=== PATIENT | male | born 1950 ===

== ENCOUNTER 2025-01-29 15:41 | Outpatient (AMB) | payer MEDICARE, OTHER, SELFPAY ==
--- NOTE | 2025-01-29 15:57 | MHC.OFFVIS ---
Intake Visit Reasons: 6 mnts f/u Allergies No Known Allergies Allergy (Verified 01/29/25 15:58) Medication List - Last Reconciled 01/29/25 by Stephanie Weiss CNP amlodipine 2.5 mg PO DAILY atorvastatin 80 mg PO DAILY finasteride 5 mg PO DAILY gabapentin 1,200 mg PO BID primidone 50 mg PO BID tamsulosin 0.4 mg PO BEDTIME HPI Comments Details: 74-year-old man with tremor. He was doing okay. He was taking primidone 50mg once a day and tremor was stable. No functional impairment. No trouble eating, drinking, or swallowing. Sleep was okay. [facility] Medical History (Updated 01/29/25 @ 15:59 by Stephanie Weiss CNP) Benign essential tremor Review of Systems Const Denies chills, Denies daytime sleepiness, Reports difficulty sleeping, Denies fatigue, Denies fever(s), Denies frequent falls, Denies headache(s), Denies increased appetite, Denies poor appetite, Denies snoring, Denies weakness, Denies weight gain and Denies weight loss Eyes Denies loss of vision ENT Denies vertigo, Denies dizziness and Denies headache(s) Card Denies chest pain at rest, Denies chest pain with activity, Denies syncope, Denies leg edema and Denies palpitations Resp Denies snoring GI Denies constipation, Denies heartburn, Denies diarrhea and Denies nausea Reports urinary frequency, Denies urinary incontinence and Denies urinary urgency Musc Denies abnormal gait, Denies numbness and Denies tingling Skin/Breast Denies dry skin and Denies rash Neuro Denies abnormal gait, Denies vertigo, Denies dizziness, Denies syncope, Denies frequent falls, Denies headache(s), Denies lack of coordination, Denies loss of vision, Denies memory loss, Denies numbness, Denies restless legs, Denies seizure-like activity, Denies tingling, Denies paresthesias, Reports tremor(s) and Denies weakness Psych Reports anxiety, Denies depression, Denies auditory hallucinations, Denies memory loss, Denies visual hallucinations and Denies suicidal ideation Endo Denies fatigue and Denies palpitations Physical Exam Const Other: General Appearance:? normal, in no acute distress. Skin:? no rashes, no significant birthmarks. Heart:? S1, S2 normal, no murmurs. Lungs:? clear anteriorly and posteriorly. Extremities:? no edema. Psych:? alert, oriented, cognitive function intact, cooperative with exam. Neuro Other: Mental Status:?Normal attention, orientation, memory and affect.? Cranial Nerves:?Pupils are equal, round and reactive to light. External occular muscles are intact. Visual degroot are full. Face is symmetrical. Facial sensations are normal. Tongue is midline. Palate elevates symmetrically. Shoulder shrugging is normal. Hearing to bedside conversation is normal. Sensory Exam:?....? Coordination:?No ataxia,?no titubation.? Gait Exam: Within normal limits. Cerebellar Signs:?[id number] and [id number] is normal.? Extrapyramidal System:?No tremor, rigidity with normal facial expressions.? Pronator Drift:?Not present.? Involuntary Movements:?No tremors noted on exam. Speech:?Normal.? Assessment & Plan Assessment & Plan (1) Benign essential tremor: Code(s): G25.0 - Essential tremor Category: Medical Plan: Decrease primidone 50mg 1 tablet daily. Medications: New primidone 50 mg PO BEDTIME 90 tabs 1RF 90 days Discontinued primidone Discontinued Reason: Order 50 mg PO BID Coding Level of Care Code Est Pt Level 3 (19777) Diagnoses Benign essential tremor G25.0
--- OUTSIDE RECORDS SUMMARY | 2025-01-29 15:58 | XMS_ITS ---
Author Name [facility] Organization Unknown Encounters Encounter Type Encounter Reason Primary Diagnosis Location Date Emergency Fall [facility] 09/08/2021 Care Team Organization Name Specialty Phone Email Start Date End Da te [facility] 05/12/2022 02/21/2024 [facility] 09/09/2021 02/21/2024 [facility] 09/08/2021 09/08/2021
--- OUTSIDE RECORDS SUMMARY | 2025-01-29 15:58 | XMS_ITS | Clinical Summary ---
Author Organization [place] [address] [address] [facility] Building Address [address] [place] [address] Phone Care Team Providers Care Supervisor Heat Treating Name Role Phone Birdie Dwyer MD Primary Care Provider [phone] Allergies No known active allergies Medications gabapentin (NEURONTIN) 600 mg tablet TAKE 2 TABLETS BY MOUTH TWICE DAILY 120 tablet 2 024 Active acetaminophen (TYLENOL) 500 mg capsule Take 500 mg by mouth. Active aspirin 81 mg EC tablet Take 81 mg by mouth daily. Active cetirizine (ZyrTEC) 10 mg tablet TK 1 T PO D 019 Active EPINEPHrine (EpiPen 2-Irineo) 0.3 mg/0.3 mL injection Inject 0.3 mg into the muscle as needed for Other (anaphylactic reaction). Fill with whichever brand is covered by insurance. 023 Active finasteride (PROSCAR) 5 mg tablet Take 1 tablet (5 mg total) by mouth 1 (one) time each day. 023 Active polyethylene glycol (GaviLyte-G) 236-22.74-6.74 -5.86 gram solution MIX AND DRINK 1 8 OZ GLASS OF PREP BY MOUTH STARTING AT 6 PM THE NIGHT BEFORE PROCEDURE AT OWN PACE UNTIL RECTALS RUN CLEAR 024 Active primidone (MYSOLINE) 50 mg tablet Take 1 tablet (50 mg total) by mouth 2 (two) times a day. 021 Active tadalafiL (CIALIS) 10 mg tablet Take 1 tab 30 minutes for sexual intercourse 023 Active tamsulosin (FLOMAX) 0.4 mg 24 hr capsule Take 1 capsule (0.4 mg total) by mouth 1 (one) time each day. 023 Active melatonin 10 mg tablet Take 1 Tablet by mouth at bedtime. 022 Active fexofenadine (MIKE) 180 mg tablet Take 1 tablet (180 mg total) by mouth 1 (one) time each day. 90 tablet 025 Active ascorbic acid (VITAMIN C) 250 mg tablet Take 1 tablet (250 mg total) by mouth 1 (one) time each day. 90 tablet 025 Active ferrous sulfate 325 mg (65 mg elemental iron) tablet Take 1 tablet (325 mg total) by mouth 1 (one) time each day. 90 tablet 025 Active oxyBUTYnin XL (DITROPAN-XL) 10 mg 24 hr tablet TAKE 1 TABLET BY MOUTH EVERY MORNING 90 tablet 025 Active hydrOXYzine HCL (ATARAX) 25 mg tablet Take by mouth. Activ e albuterol HFA (PROAIR HFA ; PROVENTIL HFA ; VENTOLIN HFA) 90 mcg/actuation inhalerIndication s:Obstructive sleep apnea Inhale 2 puffs by mouth every 4 (four) hours if needed for wheezing. 8.5 g 1 025 Active amLODIPine (NORVASC) 5 mg tabletIndications :Primary hypertension Take 1 tablet (5 mg total) by mouth 1 (one) time each day. 90 tablet 1 025 Active amLODIPine (NORVASC) 2.5 mg tabletIndications :Primary hypertension One tablet by mouth daily in addition to 5 mg for a total of 7.5mg daily 90 tablet 1 025 Active omeprazole (PriLOSEC) [address] capsuleIndication s:Gastroesophagea l reflux disease, unspecified whether esophagitis present Take 1 capsule (40 mg total) by mouth 1 (one) time each day. 90 each 025 2024 Active famotidine (Pepcid) 20 mg tabletIndications :Gastroesophageal reflux disease, unspecified whether esophagitis present Take 1 tablet (20 mg total) by mouth at bedtime as needed for heartburn. 90 each 1 025 Active ezetimibe (ZETIA) 10 mg tabletIndications :Hyperlipidemia, unspecified hyperlipidemia type Take 1 tablet (10 mg total) by mouth 1 (one) time each day. 30 each 5 025 2024 Active FLUoxetine (PROzac) 20 mg capsule TAKE 3 CAPSULES BY MOUTH DAILY 270 capsule 1 025 Active meclizine (ANTIVERT) 25 mg tablet Chew 1 tablet (25 mg total) 1 (one) time each day if needed for dizziness. 30 tablet 025 Active folic acid (FOLVITE) 1 mg tablet TAKE 1 TABLET BY MOUTH DAILY 90 tablet 1 025 Active atorvastatin (LIPITOR) 80 mg tablet TAKE 1 TABLET BY MOUTH DAILY 90 tablet 1 025 Active valACYclovir (VALTREX) 500 mg tablet TAKE 1 TABLET BY MOUTH DAILY 90 tablet 025 Active valACYclovir (VALTREX) 500 mg tablet TAKE 1 TABLET BY MOUTH DAILY 90 tablet 025 2024 Discontinued Active Problems Problem Noted Date Diagnosed Date History of thymoma 11/10/2024 Assessment & Plan (11/10/2024 2:01 PM EDT): Mr. Tavarez is a 74-year-old male who had a resection of an anterior mediastinal mass in August 2021 that was positive for a type a thymoma with a positive microscopic margin. Given the microscopic margin the patient was offered radiation versus surgery and ultimately was taken back to the operating room in October 2021 where he had a complete thymectomy via median sternotomy. The patient's most recent surveillance chest CT scan shows no new or worsening pulmonary nodule, mediastinal mass, or mediastinal adenopathy to suggest recurrence or new disease. We will continue with routine chest CT surveillance next of which will be in 1 year, October 2025. The patient will have a visit in the office after this scan as part of his protocol. Patient told to call the office should he have any questions or concerns prior to this next visit. 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 1. Recommend OTC antihistamine cream. May apply to skin and avoid keloid scar. If does not resolve, may need a topical corticosteroid cream. Recommend patient follow up with PCP. Rupture of left quadriceps tendon 04/16/2022 S/P parathyroidectomy 03/07/2021 Complete tear of right rotator cuff 06/13/2019 Obstructive sleep apnea 10/25/2017 Overview (05/23/2024): [facility] Home Polysomnogram: Date 10/20/20172; AHI 8, Unclassified apneas 1; Obstructive apneas 6; Central apneas 2; Mixed apneas 0; hypopneas 53; average oxygen saturation 98% (lowest 88% without saturations <88% for 5% or more of study) - Obstructive Sleep Apnea - mild; mostly hypopneas; without sleep related hypoventilation by 2018 home polysomnogram. Palpitations 09/26/2017 Overview (05/23/2024): Holter monitor (09/22/17): NSR with a RBBB. Frequent PAC's with rare trigeminy and atrial runs upto 3 beats. Rare PVC's. No significant pauses. Holter monitor in August 2020 showed normal sinus rhythm, first-degree AV block, minimum heart rate 63, average 80, max 113 frequent PACs and rare atrial pairs and rare PVCs. Last Assessment & Plan: The patient continues with palpitations that lasted brief time with recent Holter monitor showing only PACs. Patient is reassured. But given his ongoing palpitations and shortness of breath, for completeness, will obtain an exercise nuclear stress test to further evaluate. Patient does have some back and orthopedic issues but does feel as though he should be able to walk for about 5 minutes on the treadmill. He is encouraged to walk to his breathlessness and fatigue in order to get a test field support representative of his current symptoms. He does understand and agree. For now, no change to his current medication plan. His diastolic dysfunction is likely a product blindness history of hypertension. 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 Presentation does not suggest Parkinson's. Follow-up as needed Elia; Essential Tremor;2008 Hypertension 04/30/2008 Overview (05/23/2024): Echocardiogram in August 2020 showing mild LVH, no wall motion abnormalities, LVEF 55 to 60%, grade 2 diastolic dysfunction, without hemodynamically significant valve disease. Last Assessment & Plan: Patient's blood pressure is well-controlled with increased amlodipine. Continue current treatment plan with amlodipine at 7.5 mg daily. Assessment & Plan (09/21/2024 11:37 AM EDT): Patient has a history of hypertension, initially blood pressure in the office was robust at 160/70, but on recheck blood pressure did improve to 138/72. No change to current medical therapy, continue with amlodipine 7.5 mg daily as prescribed. Allergic rhinitis 12/22/2006 Depressive disorder 12/21/2005 Hyperlipidemia 12/21/2005 Overview (05/23/2024): Last Assessment & Plan: Well-controlled lipid profile without known coronary artery disease. Continue statin at current dose Assessment & Plan (09/21/2024 11:38 AM EDT): Patient has a history of hyperlipidemia, last lipid panel reviewed and under excellent control. Continue with atorvastatin and Zetia as prescribed. 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 Encounters Date Type Department Care Team Description 11/10/2024 2:30 PM EDT Clinical Support Internal Medicine - [facility] [address] [place] [phone] 11/10/2024 2:00 PM EDT Office Visit Internal Medicine - [facility] [address] [place] [phone] Parrish Ashton NP Hyperlipidemia, unspecified hyperlipidemia type (Primary Dx); Primary hypertension; Obstructive sleep apnea; Gastroesophageal reflux disease, unspecified whether esophagitis present; Anemia, unspecified type 11/09/2024 1:45 PM EDT Office Visit Thoracic Surgery - [place] [address] [facility] [address] [place] [id number] Nafisa Garcia PA History of thymoma (Primary Dx) 11/02/2024 7:50 AM EDT - 11/02/2024 11:59 PM EDT Hospital Encounter [facility] CT Scan [address] [place] [address] History of thymoma Discharge Disposition: Home or Self Care from Last 3 Months Immunizations Name Administration Dates Next Due H1N1 Inj Preservative Free 05/27/2009 Influenza Quadravalent, MDCK , 0.5ml, with preservative (Flucelvax) 6mo and older 05/16/2018 Influenza trivalent, 0.5mL ( Fluad) 65yo and older 04/13/2023,04/16/2022,06/05/2021,05/18 Influenza trivalent, 0.5mL, preservative free (Fluarix; FluLaval; Fluzone) ages 6mo and older (Afluria) 3 years and older 08/30/2013,03/31/2011 Pfizer SARS-CoV-2 COVID-19, mRNA, LNP-S, preservative free 06/04/2022,09/13/2020,08/23/2020 Pneumococcal conjugate 13 va lent (Prevnar 13, PCV13) 2mo and older 09/02/2017 Pneumococcal polysaccharide 23 valent (Pneumovax 23) 2yo and older 06/05/2021 Td Tetanus diptheria (Tdvax) 7yo and older 04/13/2023,11/20/2006,06/18/2003 Tdap Tetanus diptheria acell ular pertussis (Boostrix; Adacel) 7yo and older 09/23/2012 Zoster recombinant (Shingrix ) 19yo and older 03/22/2023,06/16/2022 Surgical History Surgery Date Site/Laterality Comments OTHER SURGICAL HISTORY 10/2006 PROCEDURE: PROSTATE SPEC. AG, SCREEN; COMMENT: 0.3 VASECTOMY 03/2006 PROCEDURE: CT VASECTOMY UNI/BI SPX W/POSTOP SEMEN EXAMS; COMMENT: [place] OTHER SURGICAL HISTORY 02/2022 Bilateral PROCEDURE: CT ANES RPR RUPTURED ACHILLES TENDON W/WO GRAFT; COMMENT: bilat CARDIOVASCULAR STRESS TEST 02/2007 PROCEDURE: CT CV STRS TST XERS&/OR RX CONT ECG W/O I&R; COMMENT: neg ESOPHAGOGASTRODUODENOSCOPY 05/15/2008 PROCEDURE: CT EGD TRANSORAL BIOPSY SINGLE/MULTIPLE; COMMENT: Esophagitis-bx:Nl, Antral gastritis and gastric nodule with umbilication-bx:Chronic Gastritis HPylori+ (treated 06/2008), Bleeding from nodule after biopsy controlled with endoclips, nl SB-bx:focal lymphatic dilatation(non-specific) SHOULDER SURGERY 2008 PROCEDURE: HISTORICAL SHOULDER SURGERY; COMMENT: [place]; Right COLONOSCOPY 08/31/2006 PROCEDURE: CT COLONOSCOPY STOMA DX INCLUDING COLLJ SPEC SPX; COMMENT: Diverticulosis: scattered left-sided and ascending colonic. Dr. Oneil COLONOSCOPY W/ POLYPECTOMY 11/25/2016 PROCEDURE: CT COLSC FLX W/RMVL OF TUMOR POLYP LESION SNARE TQ; COMMENT: tics and adenomas; repeat in 5 yrs OTHER SURGICAL HISTORY N/A PROCEDURE: CT THYROIDECTOMY TOTAL/COMPLETE OTHER SURGICAL HISTORY 08/2021 PROCEDURE: CT MEDIASTINOSCOPY INCLUDES MEDIASTINAL MASS BIOPSY; COMMENT: thymoma excision Medical History Medical History Date Comments Other and unspecified hyperlipidemia 12/21/2005 DX:Other and unspecified hyperlipidemia Depressive disorder, not els ewhere classified 12/21/2005 DX:Depressive disorder, not elsewhere classified Other disorders of bone and cartilage(733.99) 12/21/2005 DX:Other disorders of bone a nd cartilage(733.99); COMMENT: known since Allergic rhinitis, cause unspecified 12/22/2006 DX:Allergic rhinitis, cause unspecified Historical Medical DX 12/10/2008 DX:Helicob acter pylori Unspecified essential hypertension 04/30/2008 DX:Unspecified essential hypertension GERD (gastroesophageal reflu x disease) DX:GERD (gastroesophageal re flux disease) Cancer of chest (wall) ([facility] V24, [facility] V28) DX:Cancer of chest (wall) ([facility]) Benign paroxysmal vertigo of both ears DX:Benign paroxysmal vertigo of both ears Mononeuropathy DX:Mononeuropath y; COMMENT: both feet Thymoma 08/26/2021 DX:Thymoma; COMM ENT: Type A thymoma Family History Medical History Relation Name Comments vertigo Daughter No Known Problems Father Diabetes Mother Hypertension Mother Other cancer Sister x3 2- [address] and living sister with unknown cancer No Known Problems Son Blindness Neg Hx Cataracts Neg Hx Glaucoma Neg Hx Macular degeneration Neg Hx Strabismus Neg Hx Relation Name Status Comments Daughter Alive Father Mother Sister x3 2- Alive Son Alive Social History Tobacco Use Types Packs/Day Years Used Date Smoking Tobacco: Never Smokeless Tobacco: Never Tobacco Cessation:Counseling Given: Not Answered Alcohol Use Standard Drinks/Week Comments Yes 0 (1 standard drink = 0.6 oz pur e alcohol) wine daily Housing Instability Answer Date Recorde d Are you worried that in the next 2 months you may not have stable housing? No 11/10/2024 Food Access & Nutrition Answer Date Rec orded Do you have access to a vari ety of food including fruits and vegetables? Yes 11/10/2024 Health Literacy Answer Date Recorded How often do you need to hav e someone help you when you read instructions, pamphlets, or other written material from your doctor or pharmacy? Never 11/10/2024 Caregiver: How often do you need to have someone help you when you read instructions, pamphlets, or other written material from your doctor or pharmacy? Not on file 11/10/2024 Financial Risk Answer Date Recorded How hard is it for you to pa y for the very basics like food, housing, medical care, and air conditioning / heating? Not very hard 11/10/2024 Transportation Answer Date Recorded Has the lack of transportati on kept you from meetings, work, or from getting things needed for daily living? No Has the lack of transportati on kept you from medical appointments or from getting medications? No 11/10/2024 Social Isolation Answer Date Recorded How often do you feel lonely or isolated from th ose around you? Never 11/10/2024 Food Risk Answer Date Recorded Within the past 12 months we worried whether our food would run out before we got money to buy more. Never true 11/10/2024 Within the past 12 months th e food we bought just didn't last and we didn't have money to get more. Never true 11/10/2024 Dependent Care Answer Date Recorded Do you need help finding or paying for care for your loved ones. For example, child watch attendant or elderly care for an older adult? No 11/10/2024 Education Answer Date Recorded Do you think completing more education or training, like finishing a GED, going to college, or learning a trade, would be helpful for you? No 11/10/2024 Employment and Income Answer Date Recor ded During the last four weeks, have you been actively looking for work? No 11/10/2024 Living Situation Answer Date Recorded What is your living situation? 0 11/10/2024 Sex and Gender Information Value Date Recorded Sex Assigned at Not on file Legal Sex Male 7:12 AM EST Gender Identity Not on file Sexual Orientation Not on file Obstetrics History Last Filed Vital Signs Vital Sign Reading Time Taken Comments Blood Pressure 132/78 11/10/2024 3:01 PM EDT Pulse 79 11/10/2024 2:10 PM EDT Temperature 36.4 C (97.5 F) 11/09/2024 1:33 PM EDT Respiratory Rate 16 11/09/2024 1:33 PM EDT Oxygen Saturation 98% 11/09/2024 1:33 PM EDT Inhaled Oxygen Concentration - - Weight 119 kg (263 lb) 11/10/2024 2:10 PM EDT Height 185.4 cm (6' 1 ) 11/10/2024 2:10 PM EDT Body Mass Index 34.7 11/10/2024 2:10 PM EDT Plan of Treatment Upcoming Encounters Date Type Department Care Team (Late st Contact Info) Description 02/05/2025 1:00 PM EDT Office Visit Internal Medicine - [facility] [address] [place] [phone] Birdie Dwyer MD [address] [place], [place] Health Maintenance Due Date Last Done Comments Falls Risk Assessment 06/13/2022 COVID-19 Vaccine (7 - Pfizer risk season) 2024 05/22/2024, 06/04/2022, 01/12/2022, Additional history exists Influenza Vaccine (#1) 2025 , 04/13/2023, 04/16/2022, Additional history exists RSV Immunization Adult Patients (1 - 1-dose 75+ series) 2025 Hypertension/CHF/CAD Annual BMP Blood Test 11/10/2025 11/10/2024, 02/11/2024, 02/11/2024, Additional history exists Medicare Annual Wellness Visit 11/10/2025 11/10/2024 Social Influencers of Health Screening 11/10/2025 11/10/2024 Cholesterol Screening (Lipid Panel) 11/10/2029 11/10/2024, 07/27/2024, 05/02/2024, Additional history exists DTaP,Tdap,and Td Vaccines (5 - Td or Tdap) 04/13/2033 04/13/2023, 09/23/2012, 11/20/2006, Additional history exists Colorectal Cancer Screening: Colonoscopy 10/10/2033 2023, 2023 Hepatitis C Screening Completed 07/23/2010 Pneumococcal Vaccine: 50+ Years Completed 06/05/2021, 09/02/2017 Zoster Vaccines Completed 03/22/2023, 06/16/2022 Depression Screening Completed 11/10/2024 HIB Vaccines Aged Out No longer eligi ble based on patient's age to complete this topic HPV Vaccines Aged Out No longer eligi ble based on patient's age to complete this topic Hepatitis A Vaccines Aged Out No long er eligible based on patient's age to complete this topic Hepatitis B Vaccines Aged Out No long er eligible based on patient's age to complete this topic IPV Vaccines Aged Out No longer eligi ble based on patient's age to complete this topic MMR Vaccines Aged Out No longer eligi ble based on patient's age to complete this topic Meningococcal ACWY Vaccine Aged Out N o longer eligible based on patient's age to complete this topic Meningococcal B Vaccine Aged Out No l onger eligible based on patient's age to complete this topic RSV Immunization Patients Under 20 months Aged Out No longer eligible based on patient's age to complete this topic Varicella Vaccines Aged Out No longer eligible based on patient's age to complete this topic Procedures Procedure Name Priority Date/Time Associated Diagnosis Comments CBC WITH AUTO DIFFERENTIAL Routine 11/10/2024 3:56 PM EDT Gastroesophageal reflux disease, unspecified whether esophagitis present COMPREHENSIVE METABOLIC PANEL Routine 11/10/2024 3:56 PM EDT Hyperlipidemia, unspecified hyperlipidemia type Primary hypertension LIPID PANEL WITH REFLEX TO DIRECT LDL Routine 11/10/2024 3:56 PM EDT Hyperlipidemia, unspecified hyperlipidemia type CBC AND DIFFERENTIAL Routine 11/10/2024 3:56 PM EDT Gastroesophageal reflux disease, unspecified whether esophagitis present IRON AND TIBC Routine 11/10/2024 3:56 PM EDT Anemia, unspecified type CT CHEST WO CONTRAST Routine 11/02/2024 8:21 AM EDT History of thymoma COLONOSCOPY Routine 2023 HEPATITIS C SCREENING Routine 07/23/2010 from Last 3 Months or Most Recently Relevant to Health Maintenance Results * (ABNORMAL) Lipid panel with reflex to direct LDL (11/10/2024 3:56 PM EDT) Cholesterol 127 0 - 200 mg/dL LAB CHEMISTRY METHOD 11/10/2024 7:20 PM EDT [facility] Triglycerides 93 0 - 150 mg/dL LAB CHEMISTRY METHOD 11/10/2024 7:20 PM EDT [facility] HDL 36(L) >=40 mg/dL LAB CHEMISTRY METHOD 11/10/2024 7:20 PM EDT [facility] LDL Calculated 72 0 - 100 mg/dL LAB CHEMISTRY METHOD 11/10/2024 7:20 PM EDT [facility] VLDL Cholesterol Marquez 18.6 mg/dL LAB CHEMISTRY METHOD 11/10/2024 7:20 PM EDT [facility] Non HDL Chol. (LDL+VLDL) 91 <145 mg/dL LAB CHEMISTRY METHOD 11/10/2024 7:20 PM EDT [facility] Chol/HDL Ratio 3.5 0.0 - 4.4 LAB CHEMISTRY METHOD 11/10/2024 7:20 PM EDT [facility] Blood Venous blood specimen / Unknown Venipuncture / Unknown 11/10/2024 3:56 PM EDT 11/10/2024 3:56 PM EDT Parrish Ashton [employer] LAB BLOOD ORDERABLES Final Res ult [facility] [address] [place] [address], * (ABNORMAL) CBC auto differential (11/10/2024 3:56 PM EDT) WBC 7.4 4.8 - 10.8 K/mcL LAB HEMETOLOGY METHOD 11/10/2024 6:41 PM EDT [facility] RBC 4.60 4.50 - 5.50 M/mcL LAB HEMETOLOGY METHOD 11/10/2024 6:41 PM EDT [facility] Hemoglobin 13.2(L) 13.5 - 17.5 g/dL LAB HEMETOLOGY METHOD 11/10/2024 6:41 PM EDT [facility] Hematocrit 40.6(L) 42.0 - 54.0 % LAB HEMETOLOGY METHOD 11/10/2024 6:41 PM EDT [facility] MCV 88.1 79.0 - 98.0 FL [facility] MCH 28.6 27.0 - 32.0 pcg LAB HEMETOLOGY METHOD 11/10/2024 6:41 PM [facility] MCHC 32.5 32.0 - 37.0 g/dL LAB HEMETOLOGY METHOD 11/10/2024 6:41 PM [facility] RDW 14.0 11.0 - 15.0 % LAB HEMETOLOGY METHOD 11/10/2024 6:41 PM [facility] Platelets 147 130 - 400 K/mcL LAB HEMETOLOGY METHOD 11/10/2024 6:41 PM [facility] MPV 11.9(H) 7.0 - 11.0 FL LAB HEMETOLOGY METHOD 11/10/2024 6:41 PM [facility] NRBC 0.0 <1.0 % LAB HEMETOLOGY METHOD 11/10/2024 6:41 PM [facility] NRBC Absolute 0.00 <0.10 K/mcL LAB HEMETOLOGY METHOD 11/10/2024 6:41 PM [facility] Neutrophils Relative 61.2 % LAB HEMETOLOGY METHOD 11/10/2024 6:41 PM [facility] Lymphocytes Relative 23.8 % LAB HEMETOLOGY METHOD 11/10/2024 6:41 PM [facility] Monocytes Relative 10.8 % LAB HEMETOLOGY METHOD 11/10/2024 6:41 PM [facility] Eosinophils Relative 3.0 % LAB HEMETOLOGY METHOD 11/10/2024 6:41 PM [facility] Basophils Relative 0.7 % LAB HEMETOLOGY METHOD 11/10/2024 6:41 PM [facility] Immature Granulocytes Relative 0.5 % LAB HEMETOLOGY METHOD 11/10/2024 6:41 PM EDT [facility] Neutrophils Absolute 4.53 1.50 - 7.00 K/mcL LAB HEMETOLOGY METHOD 11/10/2024 6:41 PM EDT [facility] Lymphocytes Absolute 1.76 1.00 - 5.00 K/mcL LAB HEMETOLOGY METHOD 11/10/2024 6:41 PM EDT [facility] Monocytes Absolute 0.80 0.20 - 1.00 K/mcL LAB HEMETOLOGY METHOD 11/10/2024 6:41 PM EDT [facility] Eosinophils Absolute 0.22 0.00 - 0.50 K/mcL LAB HEMETOLOGY METHOD 11/10/2024 6:41 PM EDT [facility] Basophils Absolute 0.05 0.00 - 0.20 K/mcL LAB HEMETOLOGY METHOD 11/10/2024 6:41 PM EDT [facility] Immature Granulocytes Absolute 0.04(H) 0.00 - 0.03 K/mcL LAB HEMETOLOGY METHOD 11/10/2024 6:41 PM EDT [facility] Blood Venous blood specimen / Unknown Venipuncture / Unknown 11/10/2024 3:56 PM EDT 11/10/2024 3:56 PM EDT us Parrish Ashton [employer] LAB BLOOD ORDERABLES Final Res ult [facility] [address] [place] [address], * (ABNORMAL) Iron and TIBC (11/10/2024 3:56 PM EDT) Iron 97 50 - 160 mcg/dL LAB CHEMISTRY METHOD 11/10/2024 7:20 PM EDT [facility] TIBC 189(L) 250 - 450 mcg/dL LAB CHEMISTRY METHOD 11/10/2024 7:20 PM [facility] Iron Saturation 51(H) 20 - 50 % LAB CHEMISTRY METHOD 11/10/2024 7:20 PM [facility] Blood Venous blood specimen / Unknown Venipuncture / Unknown 11/10/2024 3:56 PM EDT 11/10/2024 3:56 PM EDT us Parrish Ashton [employer] LAB BLOOD ORDERABLES Final Res ult [facility] [address] [place] [address], * (ABNORMAL) Comprehensive metabolic panel (11/10/2024 3:56 PM EDT) Sodium 140 133 - 145 mmol/L LAB CHEMISTRY METHOD 11/10/2024 7:20 PM [facility] Potassium 3.9 3.5 - 5.5 mmol/L LAB CHEMISTRY METHOD 11/10/2024 7:20 PM [facility] Chloride 107 96 - 110 mmol/L LAB CHEMISTRY METHOD 11/10/2024 7:20 PM [facility] CO2 26 21 - 32 mmol/L LAB CHEMISTRY METHOD 11/10/2024 7:20 PM [facility] Anion Gap 7 3 - 11 LAB CHEMISTRY METHOD 11/10/2024 7:20 PM [facility] Glucose 101(H) 70 - 100 mg/dL LAB CHEMISTRY METHOD 11/10/2024 7:20 PM [facility] BUN 12 5 - 25 mg/dL LAB CHEMISTRY METHOD 11/10/2024 7:20 PM [facility] Creatinine 0.96 0.70 - 1.30 mg/dL LAB CHEMISTRY METHOD 11/10/2024 7:20 PM [facility] eGFR 83 >=60 mL/min/1. 73m2 LAB CHEMISTRY METHOD 11/10/2024 7:20 PM T [facility] Comment:Calculation based on the Chronic Kidney Disease Epidemiology Collaboration (CKD-EPI) equation refit without adjustment for race. BUN/Creatinine Ratio 12.5 LAB CHEMISTRY METHOD 11/10/2024 7:20 PM EDT [facility] Calcium 8.8 8.5 - 10.5 mg/dL LAB CHEMISTRY METHOD 11/10/2024 7:20 PM T [facility] AST (SGOT) 20 10 - 42 unit/L LAB CHEMISTRY METHOD 11/10/2024 7:20 PM [facility] ALT (SGPT) 22 10 - 60 unit/L LAB CHEMISTRY METHOD 11/10/2024 7:20 PM [facility] Alkaline Phosphatase 166(H) 42 - 121 unit/L LAB CHEMISTRY METHOD 11/10/2024 7:20 PM [facility] Total Protein 6.4 6.0 - 8.0 g/dL LAB CHEMISTRY METHOD 11/10/2024 7:20 PM [facility] Albumin 3.5 3.2 - 5.0 g/dL LAB CHEMISTRY METHOD 11/10/2024 7:20 PM [facility] Total Bilirubin 0.6 0.0 - 1.4 mg/dL LAB CHEMISTRY METHOD 11/10/2024 7:20 PM [facility] Blood Venous blood specimen / Unknown Venipuncture / Unknown 11/10/2024 3:56 PM EDT 11/10/2024 3:56 PM EDT us Parrish Ashton NP LAB BLOOD ORDERABLES Final Res ult [facility] [address] [place] [address], * CT Chest wo Contrast (11/02/2024 8:21 AM EDT) Anatomical Region Laterality Modality Body Computed Tomogra phy 11/02/2024 8:54 AM EDT Impressions 11/02/2024 9:06 AM EDT No imaging evidence of recurrent thymic mass. No suspicious interval change -------- FINAL REPORT -------- Dictated By: Neri De Jesus Dictated Date: 11/02/2024 08:54 ET Assigned Physician: Neri De Jesus Reviewed and Electronically Signed By: Neri De Jesus Signed Date: 11/02/2024 09:06 ET Workstation ID: [id number] Transcribed By: Self Edit Transcribed Date: 11/02/2024 08:54 ET Narrative 11/02/2024 9:06 AM EDT EXAMINATION: CT CHEST WITHOUT CONTRAST CLINICAL INFORMATION: History of thymoma. Surveillance COMPARISON: Portions of previous 11/09/23 TECHNIQUE: Multidetector CT. Examination of the chest. Examination of the chest without IV contrast. Reformatting in the coronal and sagittal planes. DLP: 175 mGy-cm Dose optimization was performed including the use of low-dose iterative reconstruction technique with automatic exposure control based on patient size. Type of contrast: None Volume of IV contrast: None Volume of contrast discarded: 0 mL FINDINGS: LUNG: There is no abnormality of the trachea or mainstem bronchi. There is no suspicious mass or nodule. There are linear/bandlike opacities greatest in the dependent lower lung zones. These appear similar to previous. There is no honeycomb formation. MEDIASTINUM: There is no mediastinal mass. There are no enlarged lymph nodes. There is no suspicious abnormality of the esophagus. There are no findings to suggest a thymic lesion. CARDIAC: The heart is not enlarged. No pericardial fluid or thickening CORONARY CALCIFICATION: There are mild coronary calcifications. VASCULAR: There is no thoracic aortic aneurysm. The main pulmonary artery is normal caliber PLEURA: There is no pleural fluid or pneumothorax AXILLA/CHEST WALL: There are no enlarged axillary lymph nodes. No chest wall mass demonstrated VISUALIZED UPPER ABDOMEN: No suspicious abnormality on limited assessment of the visualized upper abdomen. There is a round 3.3 cm low attenuating mass in the medial upper left kidney which appears similar to 11/09/23 MUSCULOSKELETAL: No suspicious focal bony lesion. Previous sternotomy. Surgical anchors associated with right proximal humerus. Procedure Note Neri De Jesus MD - 11/02/2024 EXAMINATION: CT CHEST WITHOUT CONTRAST CLINICAL INFORMATION: History of thymoma. Surveillance COMPARISON: Portions of previous 11/09/23 TECHNIQUE: Multidetector CT. Examination of the chest. Examination of the chest without IV contrast. Reformatting in the coronal and sagittal planes. DLP: 175 mGy-cm Dose optimization was performed including the use of low-dose iterativereconstruction technique with automatic exposure control based on patientsize. Type of contrast: None Volume of IV contrast: None Volume of contrast discarded: 0 mL FINDINGS: LUNG: There is no abnormality of the trachea or mainstem bronchi. There is no suspicious mass or nodule. There are linear/bandlike opacities greatest in the dependent lower lungzones. These appear similar to previous. There is no honeycomb formation. MEDIASTINUM: There is no mediastinal mass. There are no enlarged lymphnodes. There is no suspicious abnormality of the esophagus. There are nofindings to suggest a thymic lesion. CARDIAC: The heart is not enlarged. No pericardial fluid or thickening CORONARY CALCIFICATION: There are mild coronary calcifications. VASCULAR: There is no thoracic aortic aneurysm. The main pulmonary arteryis normal caliber PLEURA: There is no pleural fluid or pneumothorax AXILLA/CHEST WALL: There are no enlarged axillary lymph nodes. No chestwall mass demonstrated VISUALIZED UPPER ABDOMEN: No suspicious abnormality on limited assessmentof the visualized upper abdomen. There is a round 3.3 cm low attenuatingmass in the medial upper left kidney which appears similar to 11/09/23 MUSCULOSKELETAL: No suspicious focal bony lesion. Previous sternotomy.Surgical anchors associated with right proximal humerus. IMPRESSION: No imaging evidence of recurrent thymic mass. No suspicious interval change -------- FINAL REPORT -------- Dictated By: Neri De Jesus Dictated Date: 11/02/2024 08:54 ET Assigned Physician: Neri De Jesus Reviewed and Electronically Signed By: Neri De Jesus Signed Date: 11/02/2024 09:06 ET Workstation ID: [id number] Transcribed By: Self Edit Transcribed Date: 11/02/2024 08:54 ET Nafisa SAINI IMG CT PROCEDURES Final Resul t * Colonoscopy (2023) Colonoscopy no interpretation , abstracted Anatomical Region Laterality Modality Other Historical Provider HEALTH MAINTENANCE Final Result * Hepatitis C Screening (07/23/2010) Hepatitis C Screening abstracted Historical Provider HEALTH MAINTENANCE Final Result from Last 3 Months or Most Recently Relevant to Health Maintenance Insurance MEDICARE [facility] [address] [place] [address] Advance Directives Documents on File Type Date Recorded Patient Inspector Hairspring Expl anation Health Care Decision (hx) 10/09/2021 AD [place]CHOFIELD DIRECTIVE Health Care Decision (hx) 10/09/2021 AD SCHOFIELD DIRECTIVE Health Care Decision (hx) 10/09/2021 AD SCHOFIELD DIRECTIVE Health Care Decision (hx) 10/09/2021 AD SCHOFIELD DIRECTIVE Health Care Decision (hx) 10/09/2021 AD SCHOFIELD DIRECTIVE Health Care Decision (hx) 10/09/2021 AD SCHOFIELD DIRECTIVE Health Care Decision (hx) 10/09/2021 AD SCHOFIELD DIRECTIVE Health Care Decision (hx) 10/09/2021 AD SCHOFIELD DIRECTIVE Health Care Decision (hx) 10/09/2021 AD SCHOFIELD DIRECTIVE Health Care Decision (hx) 10/09/2021 AD SCHOFIELD DIRECTIVE Health Care Decision (hx) 10/09/2021 AD SCHOFIELD DIRECTIVE Health Care Decision (hx) 10/09/2021 AD SCHOFIELD DIRECTIVE Health Care Decision (hx) 10/09/2021 AD SCHOFIELD DIRECTIVE Health Care Decision (hx) 10/09/2021 AD SCHOFIELD DIRECTIVE Health Care Decision (hx) 10/09/2021 AD SCHOFIELD DIRECTIVE Care Teams Supervisor Heat Treating Relationship Specialty Start Date End Date Birdie Dwyer MD [address] [place] [id number] PCP - General Internal Medicine 01/29/25
--- OUTSIDE RECORDS SUMMARY | 2025-01-29 15:58 | XMS_ITS | Continuity of Care Document ---
Author Organization [facility] [address] [place] [address] Phone [phone] Care Team Providers Care Geomagnetist Name Role Phone Juve Queen M.D. Care Team Information Descriptive Catalog Librarian [phone] Problems Active Problems Provider Date Essential hypertension Daniel Chavez M.D. O nset: 08/28/2024 Hypercholesterolemia Daniel Chavez M.D. Ons et: 08/28/2024 Osteitis deformans Daniel Chavez M.D. Onset : 08/28/2024 Social History Type Date Description Comments Sex Male Sex Unknown Medications Active Medications SIG Qnty Indications Ordering Provider Date Fluoxetine [id number] Capsules Take 3 Capsules By Mouth Daily Juve Queen M.D. Allergy Yqtkzi249us Tablets Take 1 Tablet By Mouth Daily Juve Queen M.D. Rusdrwmiq15fc Tablets Juve Ferguson M.D. Ketoconazole2% Cream Apply Topically To The Affected Area Twice Daily Unknown Vgqiuwnofyt8er Tablets Take 1 Tablet By Mouth Every Day PARVEEN Cheung Outtqad336(65Fe) mg Tablets Take 1 Tablet By Mouth Daily Juve Queen M.D. Hdsjpbvefs00ft Capsules DR Take 1 Capsule By Mouth Daily Unknown Albuterol Sulfate IVK115(90Base) mcg/Act Aerosol Inhale 2 Puffs Into The Lungs Every 6 Hours as Needed For Cough Or Wheezing Unknown Folic Zkcc8cs Tablets Take 1 Tablet By Mouth Daily Juve Queen M.D. Amlodipine Besylate2.5mg Tablets Juve Urias M.D. Gjhqpkgpsd795hb Tablets Take 2 Tablets By Mouth Twice Daily Juve Queen M.D. Atorvastatin Bnauanl83ks Tablets Take 1 Tablet By Mouth Daily Juve Queen M.D. Amlodipine Ypfuloex5sa Tablets Take 1 Tablet By Mouth Every Day. Take With 2.5MG For Total Daily Dose 7.5MG Unknown Valacyclovir ZYF572pu Tablets Take 1 Tablet By Mouth Daily Juve Queen M.D. Tamsulosin HCL0.4mg Capsules Take 1 Capsule By Mouth AT Bedtime Lisa Pastrana MD Oxybutynin Chloride ER10mg Tablets ER 24HR Take 1 Tablet By Mouth Every Morning Lisa Pastrana MD Vital Signs Date Vital Result Comment 10/19/2024 11:09am Height 73 inches 6'1 Weight 272.25 lb BMI (Body Mass Index) 35.9 kg/m2 Results Test Acquired Date Facility Test Result H/L Range N ote Alkaline Phosphatase QN Ser/PL 09/21/[address] [address] Alkaline Phosphatase QN Ser/PL <pending> Calcium Ser/Plasma Mass/Vol 09/21/[address] [address] Calcium Ser/Plasma Mass/Vol <pending> Vitamin D 25-Hydroxy D2+D3 S/P 09/21/[address] [address] Vitamin D 25-Hydroxy D2+D3 S/P <pending> Albumin Serum/Plasma 09/21/[address] [id number] Albumin Serum/Plasma <pending> PTH Intact Ser/Plas Mass/Vol 09/21/[address] [address] PTH Intact Ser/Plas Mass/Vol <pending> Phosphorous QN Ser/Plas Mass/V 09/21/[address] [address] [phone] Phosphorous QN Ser/Plas Mass/V <pending> Medical Devices Description No Information Available Encounters Type Date Location Provider Dx Diagnosis Office Visit 10/19/2024 10:45a Main Office Daniel Chavez M.D. M88.9 Osteitis deformans of unspecified bone M54.50 Low back pain, unspe cified Assessments Date Code Description Provider 10/19/2024 M88.9 Osteitis deformans of unspec ified bone Daniel Chavez M.D. 10/19/2024 M54.50 Low back pain Daniel jack M.D. Plan of Treatment Future Appointment(s):* 04/03/2025 2:45 pm - Daniel Chavez M.D. at Main Office 08/28/2024 - Daniel Chavez M.D.* M88.9 Osteitis deformans of unspecified bone * M54.50 Low back pain* New Labs:* Alkaline Phosphatase QN Ser/PL, Ordered: 08/28/24 * Calcium Ser/Plasma Mass/Vol, Ordered: 08/28/24 * Vitamin D 25-Hydroxy D2+D3 S/P, Ordered: 08/28/24 * Albumin Serum/Plasma, Ordered: 08/28/24 * PTH Intact Ser/Plas Mass/Vol, Ordered: 08/28/24 * Phosphorous QN Ser/Plas Mass/V, Ordered: 08/28/24 Functional Status Description No Information Available Mental Status Description No Information Available Referrals Description No Information Available
--- OUTSIDE RECORDS SUMMARY | 2025-01-29 15:58 | XMS_ITS | Patient Health Record ---
Author Organization [facility] Address [address] [place] [address] Care Team Providers Care Sales Development Manager Name Role Phone Michelle Baum Unavailable [phone] Allergies No Known Allergies Reason For Referral No Information Medications Medication SIG (Take, Route, Frequency, Duration) Notes Start Date End Date Status Vitamin D3 Active Ciclopirox 0.77 % 1 application to affected area Externally Twice a day to effected nails; Duration: 30 days 08/26/2020 Active Orthopedic Extra Depth Shoes With Custom Heat Molded Multidensity Innersoles as directed Wear Daily; Duration: as needed 08/26/2020 Active Primidone 50 MG 1 tablet Orally Once a day; Duration: 30 day(s) Active Sildenafil Citrate 100 MG 1 tablet as ne eded Orally Once a day; Duration: 30 day(s) Unknown valACYclovir HCl 500 MG 1 tablet Orally Once a day; Duration: 10 day(s) Active Triamcinolone (oint)-Silicone Unknown Cyclobenzaprine HCl 10 MG 1 tablet at be dtime as needed Orally Once a day; Duration: 30 day(s) Unknown Ranitidine & Diet Manage Prod Unknown Cetirizine HCl 10 MG 1 tablet Orally Onc e a day; Duration: 30 day(s) Unknown Gabapentin 600 MG 2 tablet Orally Twic e daily Active FLUoxetine HCl 20 MG 3 capsule Orally On ce a day Active Fluzone High-Dose Quadrivalent 0.7 ML as directed Intramuscular Active Atorvastatin Calcium 40 MG 1 tablet Oral ly Once a day; Duration: 30 day(s) Active Fexofenadine HCl 180 MG 1 tablet Orally Once a day; Duration: 30 day(s) Active Albuterol Active amLODIPine Besylate 5 MG 1 tablet Orally Once a day; Duration: 30 day(s) Active Immunizations Vaccine Route Administration Date Status Comme nts COVID-19 Pfizer BioNTech Vaccine Unknown 09/13/2020 Administered 1st vaccine Social History Tobacco Use: Social History Observation Description Date Details (start date - stop date) Never Smoker NA - NA Tobacco Use/Smoking Question Answer Notes Are you a: nonsmoker Additional Findings: Tobacco Non-User Aggressive non-smoker Alcohol Screen Question Answer Notes Did you have a drink contain ing alcohol in the past year? Yes How often did you have a dri nk containing alcohol in the past year? 4 or more times a week (4 points) How many drinks did you have on a typical day when you were drinking in the past year? 1 or 2 drinks (0 point) How often did you have 6 or more drinks on one occasion in the past year? Never (0 point) Points 4 Interpretation Positive Tobacco use other than smoking: Question Answer Notes Are you an other tobacco user? No Problems Problem Type SNOMED Code ICD Code Onset Dates Problem Status W/U Status Risk Notes Problem Neuropathy (663634868) Neuropathy (G62.9) Active confirmed Problem Mononeuropathy of lower limb (320874297) Neuritis of right foot (G57.91) Active confirmed Problem Mononeuropathy of lower limb (232739489) Neuritis of left foot (G57.92) Active confirmed Plan Of Treatment No Information Insurance Providers Payer Name Payer Address Payer Phone Subscriber Number Group Number Insured Name Patient Relationship to Insured Coverage Start Date Coverage End Date Medicare National [employer] [address] [facility] [place] [address] [id number] Madeline Tavarez Self - patient is the insured [facility] [address] [place] [address] [id number] Lacy Tavarez Spouse - patient is the spouse of the insured Medical (General) History Medical History History ICD Code Back,Hip,and Knee pain CAD (Cholesterol) Depression Fibromyalgia High blood pressure Numbness Poor circulation Pagets disease Surgical History Surgery Date(Month/Year) achilles tendon repair R & L knee surgery, right Patella ankle surgery, Right rotator cuff tear repair, right x2
--- OUTSIDE RECORDS SUMMARY | 2025-01-29 15:58 | XMS_ITS | Clinical Summary ---
Author Organization [facility] Address [address] [place] [address] Care Team Providers Care Manager Of Selection And Assessment Name Role Phone [facility]: Primary Care Provider Allergies No known active allergies Medications Acetaminophen (TYLENOL) 500 MG coapsule Take 500 mg by mouth every 6 (six) hours. Active docusate sodium (COLACE) 100 MG capsule Take 100 mg by mouth 2 (two) times a day. Active senna (SENOKOT) 8.6 MG Tab tablet Take 2 tablets by mouth daily as needed for constipation . Active oxyCODONE (ROXICODONE) 10 mg immediate release tablet Take 5 mg by mouth every 4 (four) hours as needed for severe pain. Active gabapentin (NEURONTIN) 600 MG tablet Take 600 mg by mouth 2 (two) times a day. Active amLODIPine (NORVASC) 5 MG tablet Take 5 mg by mouth daily. Active atorvastatin (LIPITOR) 40 MG tablet Take 40 mg by mouth daily. Active cetirizine (ZyrTEC) 10 MG tablet Take 10 mg by mouth daily. Active cholecalciferol (VITAMIN D3) 25 MCG (1000 UT) Chew Tab chewable tablet Chew 2,000 Units daily. Active FLUoxetine (PROzac) 20 MG capsule Take 20 mg by mouth daily. Active primidone (MYSOLINE) 50 MG tablet Take 50 mg by mouth daily. Active Social History Tobacco Use Types Packs/Day Years Used Date Smoking Tobacco: Never Assessed Sex and Gender Information Value Date Recorded Sex Assigned at Not on file Legal Sex Male 11:39 PM EST Gender Identity Not on file Sexual Orientation Not on file Last Filed Vital Signs Vital Sign Reading Time Taken Comments Blood Pressure 188/81 09/09/2021 1:35 AM EST Pulse 75 09/09/2021 1:35 AM EST Temperature 36.9 C (98.5 F) 09/08/2021 11:43 PM EST Respiratory Rate 18 09/09/2021 1:35 AM EST Oxygen Saturation 100% 09/09/2021 1:35 AM EST Inhaled Oxygen Concentration - - Weight 118 kg (260 lb) 09/08/2021 11:43 PM EST Height 188 cm (6' 2 ) 09/08/2021 11:43 PM EST Body Mass Index 33.38 09/08/2021 11:43 PM EST Plan of Treatment Health Maintenance Due Date Last Done Comments Hepatitis C Virus Screening 1950 DTaP/Tdap/Td Vaccines (1 - Tdap) 1969 Colonoscopy 10/12/1995 Pneumococcal Vaccines 50+ (1 of 1 - PCV) 2000 Zoster (Shingles) Vaccine (1 of 2) 2000 COVID-19 Vaccine (2 - 2023-2 5 season) 2024 09/13/2020 Influenza Vaccine 02/02/2025 RSV Vaccine 60 years and old er and Patients (1 - 1-dose 75+ series) 2025 Hepatitis B Vaccines Aged Out No long er eligible based on patient's age to complete this topic Insurance MEDICARE PART A & B Care Teams Manager Of Selection And Assessment Relationship Specialty Start Date End Date [facility]: [address] [place] [address] PCP - General 09/08/21
--- OUTSIDE RECORDS SUMMARY | 2025-01-29 15:58 | XMS_ITS | Clinical Summary ---
Author Organization [facility] Address [address] [place] [id number] Care Team Providers Care 1St Grade Teacher Name Role Phone Juve Queen MD Primary Care Provider [phone] Allergies No known active allergies Medications Medication Sig Dispensed Refills Start Date End Date Status amLODIPine (NORVASC) tablet 5 mg TK 1 T PO DAILY 0 05/23/2019 Active atorvastatin (LIPITOR) tablet 40 mg TK 1 T PO QD 1 05/29/2019 Active cetirizine (ZyrTEC) 10 MG tablet TK 1 T PO D 1 03/03/2019 Active Cholecalciferol (VITAMIN D) 50 MCG (2000 UT) tablet TK 1 T PO D 0 03/03/2019 Active FLUoxetine (PROzac) 20 MG capsule TK 3 CS PO D 1 05/11/2019 Active gabapentin (NEURONTIN) 600 MG tablet TK 2 T PO BID 0 05/23/2019 Active primidone (MYSOLINE) 50 MG tablet TK 1 T PO BID 1 05/31/2019 Active raNITIdine (ZANTAC) 150 MG tablet TK 1 T PO BID 1 03/10/2019 Active sildenafil (VIAGRA) 100 MG tablet TK 1 T PO PRF ERECTILE DISFUNCTION 5 03/01/2019 Active valACYclovir (VALTREX) 500 MG tablet TK 1 T PO QD 5 05/31/2019 Active Active Problems Problem Noted Date Diagnosed Date Complete tear of right rotator cuff 06/13/2019 Social History Tobacco Use Types Packs/Day Years Used Date Smoking Tobacco: Never Assessed Sex and Gender Information Value Date Recorded Sex Assigned at Not on file Gender Identity Not on file Sexual Orientation Not on file Job Start Date Occupation Industry Not on file Not on file Not on file Last Filed Vital Signs Vital Sign Reading Time Taken Comments Blood Pressure - - Pulse - - Temperature - - Respiratory Rate - - Oxygen Saturation - - Inhaled Oxygen Concentration - - Weight 117.9 kg (260 lb) 06/06/2019 3:06 PM EST Height 185.4 cm (6' 1 ) 06/06/2019 3:06 PM EST Body Mass Index 34.3 06/06/2019 3:06 PM EST Plan of Treatment Health Maintenance Due Date Last Done Comments Hepatitis C Screening 1950 COVID-19 Vaccine (#1) 04/12/1951 Depression Screening 1962 BMI Counseling 1968 Preventative Health Evaluation 1968 DTap / Tdap / Td (1 - Tdap) 1969 Colon Cancer Screening (Colonoscopy) 10/12/1995 Shingrix-Zoster Vaccine (1 of 2) 2000 Fall Risk Assessment 10/12/2015 Pneumococcal Vaccine (1 of 1 - PCV) 10/12/2015 Influenza Vaccine (#1) 2025 RSV Adult > 60+ Yrs or Pregn ant (1 - 1-dose 75+ series) 2025 Hepatitis B Vaccines Aged Out No long er eligible based on patient's age to complete this topic RSV Ped < 20 months Aged Out No longe r eligible based on patient's age to complete this topic Care Teams 1St Grade Teacher Relationship Specialty Start Date End Date Juve Queen MD [address] [place] [id number] PCP - General Internal Medicine 05/30/19
== END 2025-01-29 16:10 | disposition home or self-care (01) ==
LOC: HO.HSM 15:42
PROVIDERS: PCP Internal Medicine; Visit Provider Registered Nurse
DX: G25.0 Essential tremor (principal)
CPT/HCPCS: 99213

== ENCOUNTER → 2025-01-29 15:41 | Outpatient (BNVA) | payer MEDICARE, OTHER, SELFPAY | PROVIDERS: PCP Internal Medicine; Visit Provider Registered Nurse | DX: G25.0 Essential tremor (principal) | CPT/HCPCS: 99212 ==

== ENCOUNTER 2025-06-11 15:34 | Outpatient (AMB) | payer MEDICARE, OTHER, SELFPAY ==
--- NOTE | 2025-06-11 15:36 | A.OFFVIS_ITS ---
Vital Signs 06/11/25 15:41 Height 6 ft 1 in Weight 251 lb BMI 33.1 BP 187/83 H Blood Pressure Location Rt brachial Position Sitting Pulse 78 Pulse Source Pulse Oximeter Pulse Oximetry (%) 98 Oxygen Delivery Method Room Air Intake Visit Reasons: Chronic Midline Low Back Pain Intake Note: Pain today 7/10 Community Resource Officer Required: No Allergies No Known Allergies Allergy (Verified 06/11/25 15:40) HPI Comments Details: The patient is a 74 year old male presenting for evaluation of chronic low back pain. 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 Pain is currently 7/10 and can reach 9/10, worsening with weather changes and movements like bending down, while sitting and rest provide relief. The pain, which does not radiate to his legs, significantly affects his daily activities, function, and sleep. He reports a history of neuropathy of unknown etiology, for which he takes gabapentin 2400 mg daily, and denies any history of diabetes, cancer treatment, or alcoholism. His past surgical history includes bilateral knee surgery approximately 3 months ago and three surgeries on his right rotator cuff, with the last repair being unsuccessful. He also has a severe left shoulder pain with arthritis and limited motion, with his last injection over a year ago. He has not had recent back imaging or physical therapy. Patient reports increased pain with movements, limited walking capacity due to knee and back pain and therefore cannot pursue PT for back pain at this time. Socially, he denies smoking, uses marijuana, and drinks a couple of glasses of wine daily. He is not currently driving due to his recent knee surgeries and uses a walker or cane depending on his pain level. He has tried a CPAP machine in the past but did not tolerate it. - Onset and Timing: Chronic pain for over 30 years, described as constant. - Quality and Character: Aching and heavy. - Location and Radiation: Localized to the mid-lower back in the midline, withou t radiation to the legs or buttocks. - Severity: Reported as 7/10 at the time of the visit, with daily fluctuations up to 9/10. - Exacerbating Factors: Pain worsens with weather changes, movements such as bending down, and walking. - Relieving Factors: Pain is alleviated by sitting and resting. - Functional Interference: The pain affects his daily activities, overall functioning, movements, and sleep. - Affect: His pain affects his sleep. - Analgesia: He takes gabapentin 600 mg, two tablets twice daily, for neuropathy. - Analgesia: For his back pain, he states he tends to grin and bear it. - Analgesia: He uses a heating pad on his knees. - Activities of Daily Living: Pain impacts his daily activities and ability to move. - Activities of Daily Living: He avoids activities that make him painful. - Activities of Daily Living: He uses a walker or cane for ambulation depending on his pain level. - Adverse Effects: None - Aberrant Drug Related Behaviors: Reports good tolerance of current medication without adverse effects. 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 Obstructive sleep apnea Memory loss Acute hemorrhagic cystitis Complete tear of right rotator cuff History of thymoma Allergic rhinitis Chronic back pain Depressive disorder GERD (gastroesophageal reflux disease) Angiomyolipoma of kidney Chronic midline low back pain without sciatica Hypertension Hyperlipidemia Kidney cysts Benign essential tremor Surgical History (Updated 06/13/25 @ 13:18 by ISAAC Calabrese) History of rotator cuff surgery H/O parathyroidectomy Social History Alcohol intake: current Alcohol intake frequency: 0-2 drinks per day Alcohol type: wine Substance Use Type: Marijuana Review of Systems Const All systems reviewed & are unremarkable except as noted in HPI and below Physical Exam Vital Signs: Last Vital Signs Pulse 78 06/11/25 15:41 BP 187/83 H 06/11/25 15:41 Pulse Ox 98 06/11/25 15:41 Oxygen Delivery Method Room Air 06/11/25 15:41 BMI result Body Mass Index 33.1 General: Appears afebrile. Alert and oriented. Mood and affect appropriate. Follows and participates in conversation appropriately. Respiratory effort is unlabored. No cough. Able to transition from sit to stand unassisted. Uses cane with ambulation. Ambulates with bilaterally normal heel strike and toe off. General: Yes no CVA tenderness Back/Spine/Pelvis Other: Limited lumbar ROM due to pain. No midline TTP in the cervica through lumbar spine. Demonstrates 5/5 strength of quadriceps bilaterally as well as flexion/dorsiflexion of bilateral feet against resistance. 2+ pedal pulses bilaterally. Straight leg rise with dorsiflexion negative bilaterally. +1 patellar and achilles reflexes bilaterally. Facet loading test positive bilaterally. Gaurav?s, Pelvic compression and Stinchfield tests are negative bilaterally. No groin pain with I/E hip rotations. Valsalva maneuver negative. Back: no CVA tenderness Cervical Spine: cervical ROM normal, cervical muscular tenderness, No Cervical spine scars present and No Cervical spine tenderness Thoracic/Lumbar Spine: thoracic and lumbar spine normal to inspection, No Thoracic/lumbar spine scar(s), Lasegue's sign negative and straight leg raise negative bilaterally Extrem General: Yes capillary refill normal, Yes no clubbing, cyanosis or edema and Yes no calf tenderness Left upper extremity: shoulder/upper arm (Limited ROM with I/E rotations due to pain.) Details: inspection abnormal, tenderness Location: of the A-C joint and over the subacromial bursa and crepitus; no swelling, no ecchymosis and no unsual warmth Results Reviewed Results Reviewed: XRAY Shoulder Hoang Min 2v 06/11/25 TECHNIQUE: AP external rotation, Grashey, Y, and axillary view, bilateral shoulders INDICATION: Bilateral shoulder pain Prior: None FINDINGS: LEFT SHOULDER: Mild degenerative irregularity is seen across the greater tuberosity. Marginal osteophytes are visible along the glenoid. Focal calcification projects cephalad to the humeral head, possibly chondrocalcinosis versus central osteophyte. There is marginal osteophyte involving superior lateral humeral head. AC joint is intact. It appears narrowed with small marginal osteophytes. Glenohumeral joint is intact. RIGHT SHOULDER: There are 5 anchors in the lateral anatomic neck of humerus consistent with prior rotator cuff repair. There is degenerative irregularity of the greater tuberosity. There are moderate marginal osteophytes involving humeral head and glenoid. There is mild elevation of the humeral head with narrowing of the subacromial space. There is a small ossification superior lateral humeral head and superior medial to the humeral head. There are mild degenerative changes of the AC joint which is otherwise intact. IMPRESSION: LEFT SHOULDER: Mild degenerative changes of the glenohumeral and AC joints. RIGHT SHOULDER: The anchors from prior rotator cuff repair. There is narrowing of the subacromial space raising question of underlying rotator cuff retear. Moderate degenerative changes are present in the glenoid humeral joint and mild degenerative changes are present in the AC joint. 1-2 possible intra-articular ossified bodies in the superior glenohumeral joint. XR LUMBOSACRAL SPINE 06/11/25 CLINICAL INFORMATION: M54.50 - Low back pain, unspecified COMPARISON: None available. TECHNIQUE: AP, bilateral oblique, lateral spot, and lateral: Flexion, neutral, and extension view x-rays of the lumbar spine. FINDINGS: There are 5 non-rib bearing lumbar segments. T12-L1: There is mild disc space narrowing and calcification in the anterior disc annulus L1-L2: There is mild disc space narrowing and calcification of the anterior disc annulus and anterior osteophytes. There is endplate sclerosis. L2-L3: There is mild to moderate disc space narrowing with endplate sclerosis and osteophytes. L3-L4: There is mild to moderate disc space narrowing with subtle retrolisthesis. There is endplate sclerosis and osteophytes. On the oblique view, there is possible pars intra-articular's defect on the right. L4-L5: There is moderate to severe disc space narrowing with endplate sclerosis and osteophyte. There is grade 1 anterolisthesis. There is facet arthropathy. L5-S1: There is moderate disc space narrowing with endplate sclerosis and osteophytes. There is also facet sclerosis. 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 There is no evidence of instability during flexion and extension. Assessment & Plan Assessment & Plan (1) Chronic midline low back pain without sciatica: Code(s): M54.50 - Low back pain, unspecified; G89.29 - Other chronic pain Category: Medical (2) Lumbosacral spondylosis: Code(s): M47.817 - Spondylosis without myelopathy or radiculopathy, lumbosacral region Category: Medical (3) Lumbar degenerative disc disease: Code(s): M51.369 - Other intervertebral disc degeneration, lumbar region without mention of lumbar back pain or lower extremity pain Category: Medical (4) Left shoulder pain: Code(s): M25.512 - Pain in left shoulder Category: Medical (5) Osteoarthritis of left shoulder: Code(s): M19.012 - Primary osteoarthritis, left shoulder Category: Medical Plan Interventional treatment options were discussed for axial low back pain, facet mediated pain, including diagnostic medial branch blocks under fluoroscopic guidance for potential radiofrequency ablation, which could provide up to 12 or more months of pain relief. A Sprint PNS trial was also presented as an alternative, though the patient expressed reluctance to wear an external device but is interested in lumbar RFA for a longer term pain relief. Schedule diagnostic bilateral L3-L4 DR L5 medial branch blocks with local and fluoroscopy. Expectations, risks and benefits were reviewed. Patient is aware he will be contacted to schedule this procedure. Regarding his severe left shoulder pain, we will plan for in office US guided left shoulder steroid injection by Dr. Castillo. This is tentatively scheduled for 06/18/25. All questions and concerns have been answered and patient agreed with the treatment plan. Follow up after injections and sooner as needed. Patient was informed and verbally consented to the use of an ambient scribe for clinic note documentation during this visit. Orders: Orders XR lumbar spine 6V w bending 06/11/25 G89.29 - Other chronic pain, M47.817 - Spondylosis without myelopathy or radiculopathy, lumbosacral region, M51.369 - Other intervertebral disc degeneration, lumbar region without mention of lumbar back pain or lower extremity pain, M54.50 - Low back pain, unspecified XR shoulder RT min 2V 06/11/25 M25.511 - Pain in right shoulder, M25.512 - Pain in left shoulder Coding Level of Care Code New Pt Level 4 (36149) Diagnoses Chronic midline low back pain without sciatica M54.50; G89.29 Lumbosacral spondylosis M47.817 Lumbar degenerative disc disease M51.369 Left shoulder pain M25.512 Osteoarthritis of left shoulder M19.012
[2025-06-11 15:41] VITALS: BP 187/83; PULSE 78; O2SAT 98; BMI 33.1
--- OUTSIDE RECORDS SUMMARY | 2025-06-12 01:10 | XMS_ITS | Encounter Summary ---
Author Organization [facility] Address [address] [place] [address] Care Team Providers Care Hog Driver Name Role Phone Birdie Dwyer MD Primary Care Provider [phone] Encounter Details Date Type Department Care Team (Late st Contact Info) Description 03/03/2025 Lab Requisition [facility] - Main Lab [address] [facility] [place] [address] Rajinder Vidal MD [address] [place] [address] [address] [facility] [phone] Weakness Social History Tobacco Use Types Packs/Day Years Used Date Smoking Tobacco: Never Smokeless Tobacco: Never Alcohol Use Standard Drinks/Week Comments Yes 0 [...] for your loved ones. For example, child and adolescent psychologist or elderly care for an older adult? [...] Date Recorded What is your living situation? Unrecognized valu e 11/10/2024 Sex and Gender Information Value Date Recorded Sex Assigned at Not on file Legal Sex Male 7:12 AM EST Gender Identity Not on file Sexual Orientation Not on file documented as of this encounter Plan of Treatment Upcoming Encounters Date Type Department Care Team (Late st Contact Info) Description 06/18/2025 3:00 PM EST Office Visit [facility] [address] [facility] [place] [address] John Paul Leyva NP [address] [place] [address] 06/27/2025 3:15 PM EST Office Visit [facility] [address] [facility] [place] [phone] Uzma Masters, FELIX [address] [place], [place] 10/10/2025 2:00 PM EDT Office Visit Internal Medicine - [facility] [place] [address] [place], [place] [phone] Birdie Dwyer MD [address] [place], [place] documented as of this encounter Procedures Procedure Name Priority Date/Time Associated Diagnosis Comments COMPLETE BLOOD COUNT Routine 03/06/2025 7:26 AM EDT Weakness BASIC METABOLIC PANEL Routine 03/06/2025 7:26 AM EDT Weakness documented in this encounter Results * (ABNORMAL) Basic metabolic panel (03/06/2025 7:26 AM EDT) Sodium 138 133 - 145 mmol/L LAB CHEMISTRY METHOD 03/06/2025 11:17 AM [facility] Potassium 4.4 3.5 - 5.5 mmol/L LAB CHEMISTRY METHOD 03/06/2025 11:17 AM [facility] Chloride 106 96 - 110 mmol/L LAB CHEMISTRY METHOD 03/06/2025 11:17 AM [facility] CO2 25 21 - 32 mmol/L LAB CHEMISTRY METHOD 03/06/2025 11:17 AM [facility] Anion Gap 7 3 - 11 LAB CHEMISTRY METHOD 03/06/2025 11:17 AM [facility] Glucose 76 70 - 100 mg/dL LAB CHEMISTRY METHOD 03/06/2025 11:17 AM [facility] BUN 10 5 - 25 mg/dL LAB CHEMISTRY METHOD 03/06/2025 11:17 AM [facility] Creatinine 0.68(L) 0.70 - 1.30 mg/dL LAB CHEMISTRY METHOD 03/06/2025 11:17 AM EDT [facility] eGFR 98 >=60 mL/min/1. 73m2 LAB CHEMISTRY METHOD 03/06/2025 11:17 AM EDT [facility] Comment:Calculation based on the Chronic Kidney Disease Epidemiology Collaboration (CKD-EPI) equation refit without adjustment for race. BUN/Creatinine Ratio 14.7 LAB CHEMISTRY METHOD 03/06/2025 11:17 AM EDT [facility] Calcium 8.4(L) 8.5 - 10.5 mg/dL LAB CHEMISTRY METHOD 03/06/2025 11:17 AM T [facility] Blood Venous blood specimen / Unknown Venipuncture / Unknown 03/06/2025 7:26 AM EDT 03/06/2025 10:17 AM EDT us Rajinder Vidal MD LAB BLOOD ORDERABLES Final Resul t [facility] [address] [place] [address], * (ABNORMAL) Complete blood count (03/06/2025 7:26 AM EDT) WBC 8.8 4.8 - 10.8 K/mcL LAB HEMETOLOGY METHOD 03/06/2025 10:37 AM EDT [facility] RBC 3.60(L) 4.50 - 5.50 M/mcL LAB HEMETOLOGY METHOD 03/06/2025 10:37 AM EDT [facility] Hemoglobin 10.3(L) 13.5 - 17.5 g/dL LAB HEMETOLOGY METHOD 03/06/2025 10:37 AM T [facility] Hematocrit 31.4(L) 42.0 - 54.0 % LAB HEMETOLOGY METHOD 03/06/2025 10:37 AM EDT [facility] MCV 88.5 79.0 - 98.0 FL LAB HEMETOLOGY METHOD 03/06/2025 10:37 AM EDT [facility] MCH 29.0 27.0 - 32.0 pcg LAB HEMETOLOGY METHOD 03/06/2025 10:37 AM EDT [facility] MCHC 32.8 32.0 - 37.0 g/dL LAB HEMETOLOGY METHOD 03/06/2025 10:37 AM EDT [facility] RDW 14.8 11.0 - 15.0 % LAB HEMETOLOGY METHOD 03/06/2025 10:37 AM EDT [facility] Platelets 279 130 - 400 K/mcL LAB HEMETOLOGY METHOD 03/06/2025 10:37 AM T [facility] MPV 10.4 7.0 - 11.0 FL LAB HEMETOLOGY METHOD 03/06/2025 10:37 AM EDT [facility] NRBC 0.0 <1.0 % LAB HEMETOLOGY METHOD 03/06/2025 10:37 AM EDT [facility] NRBC Absolute 0.00 <0.10 K/mcL LAB HEMETOLOGY METHOD 03/06/2025 10:37 AM T [facility] Blood Venous blood specimen / Unknown Venipuncture / Unknown 03/06/2025 7:26 AM EDT 03/06/2025 10:18 AM EDT us Rajinder Vidal MD LAB BLOOD ORDERABLES Final Resul t [facility] [address] [place] [address], documented in this encounter Visit Diagnoses Diagnosis Weakness Other malaise and fatigue documented in this encounter Additional Health Concerns Infection Onset Date Last Indicated Resolved Time Respiratory Rule-Out 04/30/2025 04/30/2025 025 4:03 PM EDT COVID-19 Rule-Out 04/30/2025 04/30/2025 04/30/2025 4:03 PM EDT Assessment Noted Time PHQ-9 Depression Total Score: 0 11/11/19 3:32 PM EDT documented as of this encounter Care Teams Hog Driver Relationship Specialty Start Date End Date Birdie Dwyer MD [address] [facility] [place] [phone] PCP - General Internal Medicine 01/29/25 documented as of this encounter
--- OUTSIDE RECORDS SUMMARY | 2025-06-12 01:11 | XMS_ITS | Data Portability ---
Author Organization [place] - [facility], [facility] Address [address] [place] [address] Assessment Encounter Date Assessment Date Assessment LastModified by Organization Details LastModified Time 03/24/2025 03/24/2025 I am seeing the patient today under the supervision of who was available but who did not see the patient. HPI:_Patient presents 4 weeks status post repair of left patellar tendon and right quadriceps tendon with Dr. Javier. Patient presents on a stretcher from rehab. Has been wearing bilateral knee immobilizers. He is reporting minimal pain. Not needing pain medicine. Denies fever chills or malaise. Past family, medical, social history and review of systems has been reviewed, updated and signed by me and is located in the patient's chart. Examination: The patient is well appearing, alert and oriented x3 and in no acute distress. Seen on the stretcher today, both surgical incisions well-healed and benign. steris in place. No evidence of infection. Left patellar tendon and right quadriceps tendon palpably intact.Patient is able to perform straight leg raise bilaterally. Range of motion of the bilateral knees is 0 to 45 degrees Dorsiflexion plantarflexion intact bilaterally. Sensation intact distally. Feet well-perfused. Impression/Plan: Postop, stable. Precautions reviewed. Weight bearing as tolerated bilaterally with knee immobilizers in place until follow-up. Gentle range of motion may be initiated in bed at this point lying prone or with leg hanging to gravity.Physical therapy note provided for the patient to initiate range of motion starting at 45 degrees and progressing 10 degrees each week. Did provide the patient a T scope range of motion brace for the left knee given the patellar tendon repair may take longer to heal than the quadricep tendon repair. Physical therapy note provided. Follow-up in 4 weeks for reevaluation with Dr. Javier. Patient will require further stay at rehab given mobility issues and safety concern/fall risk. He should be on aspirin daily for DVT prophylaxis. Call if any concerns. [email or web address] Not available 03/24/2025 11:15:14 Plan of Treatment Reminders Order Date Submit Date Provider Last Modified By Organization Details Last Modified Time Details Appointments RECHECK 15 2024 01:45P M Devonte Javier MD Not available Not available Not available Lab None recorded. Referral physical therapist referral - LEFT PATELLA TENDON REPAIR START ROM @ 45 DEGREE 10 DEGREE EACH WEEK SX 02/21/25 DR JAVIER 2024 025 [email or web address] Not available 04/03/2025 12:57:12 Procedures None recorded. Surgeries None recorded. Imaging None recorded. Medication Orders None recorded. Patient TargetsNo targets recorded. Patient InstructionsNo instructions recorded. Reason for Referral Physical Therapist Referral for Follow-up status LEFT PATELLA TENDON REPAIR START ROM @ 45 DEGREE 10 DEGREE EACH WEEK SX 02/21/25 DR JAVIER Referring Physician: Justin Albright, Orthopedic Surgery, Encounter Date: 03/24/2025 Medical Equipment None Reported. Allergies No known drug allergies Medications Name Sig Start Date Stop Date Status Note LastModified by Organization Details LastModified Time primidone 50 mg tablet TAKE 1 TABLET BY MOUTH AT BEDTIME active Not Available Not Available No t Available atorvastatin 80 mg tablet TAKE 1 TABLET BY MOUTH DAILY active Not Available Not Available No t Available gabapentin 600 mg tablet TAKE 2 TABLETS BY MOUTH TWICE DAILY active Not Available Not Available No t Available oxybutynin chloride ER 10 mg tablet,extend ed release 24 hr TAKE 1 TABLET BY MOUTH EVERY MORNING active Not Available Not Available No t Available amlodipine 2.5 mg tablet TAKE 1 TABLET BY MOUTH DAILY IN ADDITION TO 5 MG FOR A TOTAL OF 7.5 MG DAILY active Not Available Not Available No t Available amlodipine 5 mg tablet TAKE 1 TABLET BY MOUTH EVERY DAY.TAKE WITH 2.5MG FOR A TOTAL DAILY DOSE OF 7.5MG active Not Available Not Available No t Available valacyclovir 500 mg tablet TAKE 1 TABLET BY MOUTH DAILY active Not Available Not Available No t Available omeprazole 40 mg capsule,delay ed release TAKE 1 CAPSULE BY MOUTH DAILY active Not Available Not Available No t Available tamsulosin 0.4 mg capsule TAKE 1 CAPSULE BY MOUTH AT BEDTIME active Not Available Not Available No t Available ascorbic acid (vitamin C) 250 mg tablet TAKE 1 TABLET BY MOUTH EVERY DAY active Not Available Not Available No t Available amlodipine 10 mg tablet TAKE 1 TABLET BY MOUTH DAILY active Not Available Not Available No t Available folic acid 1 mg tablet TAKE 1 TABLET BY MOUTH DAILY active Not Available Not Available No t Available albuterol sulfate HFA 90 mcg/actuation aerosol inhaler INHALE 2 PUFFS BY MOUTH EVERY 4 HOURS NEEDED FOR WHEEZING active Not Available Not Available No t Available ketoconazole 2 % topical cream APPLY TOPICALLY TO THE AFFECTED AREA TWICE DAILY active Not Available Not Available No t Available fluoxetine 20 mg capsule TAKE 3 CAPSULES BY MOUTH DAILY active Not Available Not Available No t Available finasteride 5 mg tablet TAKE 1 TABLET BY MOUTH EVERY DAY active Not Available Not Available No t Available oxycodone 5 mg tablet Take 1 tablet every 4 hours by oral route. active Not Available Not Available No t Available meclizine 25 mg chewable tablet CHEW 1 TABLET BY MOUTH DAILY NEEDED FOR DIZZINESS active Not Available Not Available No t Available FeroSul 325 mg (65 mg iron) tablet TAKE 1 TABLET BY MOUTH EVERY DAY active Not Available Not Available No t Available Allergy Relief (fexofenadine ) 180 mg tablet TAKE 1 TABLET BY MOUTH DAILY active Not Available Not Available No t Available Vitals Date Recorded Body height Body temperature Body mass index (BMI) Body weight Provider Name and Address Organization Details Last Updated DateTime 03/06/2025 182.88 cm 98.3 [degF] 33.9 kg/m2 967371.09 g ANJUM LINN [facility] 03/06/2025 11:43:17 Date Recorded Body height Body mass index (BMI) Body weight Provider Name and Address Organization Details Last Updated DateTime 03/24/2025 182.88 cm 33.9 kg/m2 811308.09 g Shanell Calhoun [facility] 03/24/2025 09:52:40 Social History None recorded. Functional Status None recorded. Mental Status None recorded. Family History Nothing Reported. Medical History No medical history recorded. Past Encounters Encounter ID Performer Location Encounter Start Date Encounter Closed Date Diagnosis/Indication Diagnosis SNOMED-CT Code Diagnosis ICD10 Code Diagnosis IMO Codes Diagnosis Note [id number] JACQUELYN Valentine [address] [place] [address] 03/06/2025 10:48:58 03/13/2025 13:51:39 Follow-up status 403442261 Z47.89 [id number] JACQUELYN Hurd [address] [place] [address] 03/24/2025 09:43:44 04/03/2025 12:57:12 Follow-up status [id number] Z47.89 [id number] Health Concerns Section Related Observation LastModified by Organization Detai ls LastModified Time None Recorded Concern Status LastModified by Organization Details LastModified Time None Recorded Advance Directives Directive None Recorded Payers Insurance Date Sequence Insurance Name Policy Number Policy Burroughs Covered Member ID Burroughs Member ID Guarantor Name 04/10/2025 [employer] Gasper L Daysi [id number] Gasper L Daysi 06/11/2025 2 [facility] [id number] Gasper L L Daysi [id number] Gasper L Daysi 06/11/2025 1 MEDIC[place] [employer]ERNMENT [place] Gasper L Daysi Jr [id number] Gasper L Daysi 06/11/2025 [employer] CLAIMS (MEDICARE [facility] Gasper L Daysi Jr [id number] Gasper Villalobos Daysi Notes Date Note Type Note Provider Name and Address Organization Details Recorded Time 03/06/2025 text/html I am seeing the patient today under the supervision of Dr. Mendoza who was available but who did not see the patient. HPI:_Patient presents 2 weeks status post repair of left patellar tendon and right quadriceps tendon with Dr. Javier. Patient presents on a stretcher from rehab. Knee immobilizers. He is reporting minimal pain. Not needing pain medicine. Denies fever chills or malaise. Past family, medical, social history and review of systems has been reviewed, updated and signed by me and is located in the patient's chart. Examination: The patient is well appearing, alert and oriented x3 and in no acute distress. Seen on the stretcher today, both surgical incisions well-healed and benign. Sutures removed and steris in place. No evidence of infection. Left patellar tendon and right quadriceps tendon palpably intact. Dorsiflexion plantarflexion intact bilaterally. Sensation intact distally. Feet well-perfused. Impression/Plan: Postop, stable. Precautions reviewed. Weight bearing as tolerated bilaterally with knee immobilizers in place until follow-up. No range of motion at either knee allowed until follow-up in 3-4 weeks. Patient will require further stay at rehab given mobility issues and safety concern/fall risk. He should be on aspirin daily for DVT prophylaxis. Call if any concerns. [employer] [facility] speech recognition garment sorter software was used to create portions of this document. An attempt at proofreading has been made to minimize errors. Please call for corrections. This lady has Deepti Cm PA-C [address] [facility] [address] [facility], [place], [address], [facility] 03/06/2025 12:12:28
--- OUTSIDE RECORDS SUMMARY | 2025-06-12 01:11 | XMS_ITS | Encounter Summary ---
Author Organization [facility] Address [address] [place] [address] Care Team Providers Care Music Therapist Name Role Phone Birdie Dwyer MD Primary Care Provider [phone] Encounter Details Date Type Department Care Team (Late st Contact Info) Description 02/27/2025 Lab Requisition [facility] - Main Lab [address] [facility], [facility] [place] [address] Rajinder Vidal MD [address] [place] [address] [address] [facility] [phone] Weakness Social History Tobacco Use Types [...] care for your loved ones. For example, director of early childhood education or elderly care for an older adult? [...] PM EST [facility] [address] [facility] [place] [address] John Paul Leyva NP [address] [place] [address] 06/27/2025 3:15 PM EST Office Visit [facility] - [facility] [address] [facility] [place] [phone] Uzma Masters, FELIX [address] [place], [place] 10/10/2025 2:00 PM EDT Office Visit Internal Medicine - [facility] [address] [place], [place] [phone] Birdie Dwyer MD [address] [place], [place] documented as of this encounter Procedures Procedure Name Priority Date/Time Associated Diagnosis Comments COMPLETE BLOOD COUNT Routine 02/27/2025 6:16 AM EDT Weakness BASIC METABOLIC PANEL Routine 02/27/2025 6:16 AM EDT Weakness documented in this encounter Results * (ABNORMAL) Basic metabolic panel (02/27/2025 6:16 AM EDT) Sodium 137 133 - 145 mmol/L LAB CHEMISTRY METHOD 02/27/2025 9:[address] [facility] Potassium 4.2 3.5 - 5.5 mmol/L LAB CHEMISTRY METHOD 02/27/2025 9:[address] [facility] Chloride 104 96 - 110 mmol/L LAB CHEMISTRY METHOD 02/27/2025 9:[address] [facility] CO2 28 21 - 32 mmol/L LAB CHEMISTRY METHOD 02/27/2025 9:[address] [facility] Anion Gap 5 3 - 11 LAB CHEMISTRY METHOD 02/27/2025 9:[address] [facility] Glucose 92 70 - 100 mg/dL LAB CHEMISTRY METHOD 02/27/2025 9:[address] [facility] BUN 11 5 - 25 mg/dL LAB CHEMISTRY METHOD 02/27/2025 9:[address] [facility] Creatinine 0.62(L) 0.70 - 1.30 mg/dL LAB CHEMISTRY METHOD 02/27/2025 9:05 AM EDT [facility] eGFR 100 >=60 mL/min/1. 73m2 LAB CHEMISTRY METHOD 02/27/2025 9:05 AM EDT [facility] Comment:Calculation based on the Chronic Kidney Disease Epidemiology Collaboration (CKD-EPI) equation refit without adjustment for race. BUN/Creatinine Ratio 17.7 LAB CHEMISTRY METHOD 02/27/2025 9:05 AM EDT [facility] Calcium 8.1(L) 8.5 - 10.5 mg/dL LAB CHEMISTRY METHOD 02/27/2025 9:[address] [facility] Blood Venous blood specimen / Unknown Venipuncture / Unknown 02/27/2025 6:16 AM EDT 02/27/2025 7:45 AM EDT us Rajinder Vidal MD LAB BLOOD ORDERABLES Final Resul t [facility] [address] [place] [address], * (ABNORMAL) Complete blood count (02/27/2025 6:16 AM EDT) WBC 8.2 4.8 - 10.8 K/mcL LAB HEMETOLOGY METHOD 02/27/2025 8:54 AM EDT [facility] RBC 3.30(L) 4.50 - 5.50 M/mcL LAB HEMETOLOGY METHOD 02/27/2025 8:54 AM EDT [facility] Hemoglobin 9.3(L) 13.5 - 17.5 g/dL LAB HEMETOLOGY METHOD 02/27/2025 8:54 AM T [facility] Hematocrit 29.0(L) 42.0 - 54.0 % LAB HEMETOLOGY METHOD 02/27/2025 8:54 AM EDT [facility] MCV 88.7 79.0 - 98.0 FL LAB HEMETOLOGY METHOD 02/27/2025 8:54 AM EDT [facility] MCH 28.4 27.0 - 32.0 pcg LAB HEMETOLOGY METHOD 02/27/2025 8:54 AM EDT [facility] MCHC 32.1 32.0 - 37.0 g/dL LAB HEMETOLOGY METHOD 02/27/2025 8:54 AM EDT [facility] RDW 14.9 11.0 - 15.0 % LAB HEMETOLOGY METHOD 02/27/2025 8:54 AM EDT [facility] Platelets 225 130 - 400 K/mcL LAB HEMETOLOGY METHOD 02/27/2025 8:54 AM EDT [facility] MPV 10.9 7.0 - 11.0 FL LAB HEMETOLOGY METHOD 02/27/2025 8:54 AM EDT [facility] NRBC 0.0 <1.0 % LAB HEMETOLOGY METHOD 02/27/2025 8:54 AM EDT [facility] NRBC Absolute 0.00 <0.10 K/mcL LAB HEMETOLOGY METHOD 02/27/2025 8:54 AM T [facility] Blood Venous blood specimen / Unknown Venipuncture / Unknown 02/27/2025 6:16 AM EDT 02/27/2025 7:45 AM EDT us Rajinder Vidal MD LAB BLOOD ORDERABLES Final Resul t [facility] [address] [place] [address], documented in this encounter Visit Diagnoses Diagnosis Weakness Other malaise and fatigue documented in this encounter Additional Health Concerns Infection Onset Date Last Indicated Resolved Time Respiratory Rule-Out 04/30/2025 04/30/2025 025 4:03 PM EDT COVID-19 Rule-Out 04/30/2025 04/30/2025 04/30/2025 4:03 PM EDT Assessment Noted Time PHQ-9 Depression Total Score: 0 11/11/19 3:32 PM EDT documented as of this encounter Care Teams Music Therapist Relationship Specialty Start Date End Date Birdie Dwyer MD [address] [facility] [place] [phone] PCP - General Internal Medicine 01/29/25 documented as of this encounter
--- OUTSIDE RECORDS SUMMARY | 2025-06-12 01:11 | XMS_ITS | Continuity of Care Document ---
Author Organization [place] - [facility], [facility] [place] [facility] [address] Address [address] [place] [address] Assessment Encounter Date Assessment Date Assessment LastModified [...] for DVT prophylaxis. Call if any concerns. [email or web address] Not available 03/24/2025 11:15:14 Plan of Treatment Reminders Order Date Submit Date Provider Last Modified By Organization Details Last Modified Time Details Appointments RECHECK 15 2024 01:45P Faina Javier MD Not available Not available Not [...] Available Vitals Date Recorded Body height Body mass index (BMI) Body weight Provider Name and Address Organization Details Last Updated DateTime 03/24/2025 182.88 cm 33.9 kg/m2 039736.09 g Shanell Calhoun [place] - [place] [facility] 03/24/2025 09:52:40 Social History None recorded. Functional Status None recorded. Mental Status None recorded. Family History Nothing Reported. Medical History No medical history recorded. Past Encounters Encounter ID Performer Location Encounter Start Date Encounter Closed Date Diagnosis/Indication Diagnosis SNOMED-CT Code Diagnosis ICD10 Code Diagnosis IMO Codes Diagnosis Note [id number] JACQUELYN Valentine [address] [place] [address] 03/06/2025 10:48:58 03/13/2025 13:51:39 Follow-up status [id number] Z47.89 [id number] JACQUELYN Hurd [address] [place] [address] 03/24/2025 09:43:44 04/03/2025 12:57:12 Follow-up status [id number] Z47.89 [id number] Health Concerns Section Related Observation LastModified by Organization Detai ls LastModified Time None Recorded Concern Status LastModified by Organization Details LastModified Time None Recorded Payers Encounter Date Sequence Insurance Name Policy Number Policy Burroughs Covered Member ID Burroughs Member ID Guarantor Name 03/24/2025 1 MEDICARE [place]: NATIONAL [employer]MENT [employer] Gasper Tavarez [id number] Gasper Tavarez 03/24/2025 2 [facility] [id number] Gasper Tavarez [id number] Gasper Tavarez
--- OUTSIDE RECORDS SUMMARY | 2025-06-12 01:11 | XMS_ITS | Clinical Summary ---
Author Organization [place] [address] Anna trinidad [facility] Building Address [address] [place] [address] Phone Care Team Providers Care Substance Addiction Coordinator Name Role Phone Birdie Dwyer MD Primary Care Provider [phone] Allergies No known active allergies Medications acetaminophen (TYLENOL) 500 mg capsule Take 500 mg by mouth. Active aspirin 81 mg EC tablet Take 81 mg by mouth daily. Active EPINEPHrine (EpiPen 2-Irineo) 0.3 mg/0.3 mL injection Inject 0.3 mg into the muscle as needed for Other (anaphylactic reaction). Fill with whichever brand is covered by insurance. 023 Active primidone (MYSOLINE) 50 mg tablet Take 1 tablet (50 mg total) by mouth 2 (two) times a day. 021 Active tadalafiL (CIALIS) 10 mg tablet Take 1 tab 30 minutes for sexual intercourse 023 Active melatonin 10 mg tablet Take 1 Tablet by mouth at bedtime. 022 Active fexofenadine (MIKE) 180 mg tablet Take 1 tablet (180 mg total) by mouth 1 (one) time each day. 90 tablet 025 Active ferrous sulfate 325 mg (65 mg elemental iron) tablet Take 1 tablet (325 mg total) by mouth 1 (one) time each day. 90 tablet 025 Active hydrOXYzine HCL (ATARAX) 25 mg tablet Take by mouth. Activ e albuterol HFA (PROAIR HFA ; PROVENTIL HFA ; VENTOLIN HFA) 90 mcg/actuation inhalerIndication s:Obstructive sleep apnea Inhale 2 puffs by mouth every 4 (four) hours if needed for wheezing. 8.5 g 1 Active FLUoxetine (PROzac) 20 mg capsule TAKE 3 CAPSULES BY MOUTH DAILY 270 capsule 1 Active folic acid (FOLVITE) 1 mg tablet TAKE 1 TABLET BY MOUTH DAILY 90 tablet 1 Active atorvastatin (LIPITOR) 80 mg tablet TAKE 1 TABLET BY MOUTH DAILY 90 tablet 1 Active valACYclovir (VALTREX) 500 mg tablet TAKE 1 TABLET BY MOUTH DAILY 90 tablet Active ascorbic acid (VITAMIN C) 250 mg tablet TAKE 1 TABLETS BY MOUTH EVERY DAY 90 tablet Active oxyBUTYnin XL (DITROPAN-XL) 10 mg 24 hr tablet TAKE 1 TABLET BY MOUTH EVERY MORNING 90 tablet Active famotidine (Pepcid) 20 mg tabletIndications :Gastroesophageal reflux disease, unspecified whether esophagitis present Take 1 tablet (20 mg total) by mouth at bedtime as needed for heartburn. 90 each 1 Active gabapentin (NEURONTIN) 600 mg tablet Take 2 tablets (1,200 mg total) by mouth 2 (two) times a day. 120 tablet 1 Active omeprazole (PriLOSEC) [address] capsule Take 1 capsule (40 mg total) by mouth 1 (one) time each day. 90 each 2025 Active meclizine (ANTIVERT) 25 mg tablet Chew 1 tablet (25 mg total) 1 (one) time each day if needed for dizziness. 30 tablet Active ezetimibe (ZETIA) 10 mg tabletIndications :Hyperlipidemia, unspecified hyperlipidemia type Take 1 tablet (10 mg total) by mouth 1 (one) time each day. 90 each 1 025 2025 Active finasteride (PROSCAR) 5 mg tablet Take 1 tablet (5 mg total) by mouth 1 (one) time each day. 90 each 1 025 2025 Active amLODIPine (NORVASC) 5 mg tabletIndications :Hypertension, unspecified type Take 1 tablet (5 mg total) by mouth 1 (one) time each day. 90 each Active cetirizine (ZyrTEC) 10 mg tablet TK 1 T PO D 019 2024 Discontinued finasteride (PROSCAR) 5 mg tablet Take 1 tablet (5 mg total) by mouth 1 (one) time each day. 023 2024 Discontinued(R eorder) polyethylene glycol (GaviLyte-G) 236-22.74-6.74 -5.86 gram solution MIX AND DRINK 1 8 OZ GLASS OF PREP BY MOUTH STARTING AT 6 PM THE NIGHT BEFORE PROCEDURE AT OWN PACE UNTIL RECTALS RUN CLEAR 024 2024 Discontinued(T herapy completed) tamsulosin (FLOMAX) 0.4 mg 24 hr capsule Take 1 capsule (0.4 mg total) by mouth 1 (one) time each day. 023 2024 Discontinued(T herapy completed) ezetimibe (ZETIA) 10 mg tabletIndications :Hyperlipidemia, unspecified hyperlipidemia type Take 1 tablet (10 mg total) by mouth 1 (one) time each day. 30 each 5 025 2024 Discontinued(R eorder) meclizine (ANTIVERT) 25 mg tablet Chew 1 tablet (25 mg total) 1 (one) time each day if needed for dizziness. 30 tablet 025 2024 Discontinued(R eorder) gabapentin (NEURONTIN) 600 mg tablet TAKE 2 TABLETS BY MOUTH TWICE DAILY 120 tablet 1 025 2024 Discontinued(R eorder) amLODIPine (NORVASC) 10 mg tablet Take 1 tablet (10 mg total) by mouth 1 (one) time each day. 025 2024 Discontinued omeprazole (PriLOSEC) [address] capsule Take 1 capsule (40 mg total) by mouth 1 (one) time each day. 2024 Discontinued(R eorder) Active Problems Problem Noted Date Diagnosed Date Acute hemorrhagic cystitis 04/30/2025 History of thymoma 11/10/2024 Assessment & Plan [...] 06/13/2019 Obstructive sleep apnea 10/25/2017 Overview (05/23/2024): [facility] Home Polysomnogram: Date ; AHI 8, Unclassified apneas 1; Obstructive apneas [...] fatigue in order to get a test sales and marketing representative of his current symptoms. He does understand and agree. For now, no change to his current medication plan. His diastolic dysfunction is likely a product blindness history of hypertension. Chronic back pain 06/07/2015 Neuropathy involving both lower extremities 10/2014 Polyneuropathy 09/09/2011 Overview (05/23/2024): Elia; Axonal Spinal stenosis 06/29/2011 GERD (gastroesophageal reflux [...] Encounters Date Type Department Care Team Description 05/30/2025 Telephone Internal Medicine - [address] [place] [address] Birdie Dwyer MD 05/25/2025 Telephone Internal Medicine - [address] [place] [address] Birdie Dwyer MD 05/17/2025 10:30 AM EST [facility] [place] [address] Parrish Ashton NP Kidney cysts (Primary Dx); Hyperlipidemia, unspecified hyperlipidemia type; Hypertension, unspecified type; Angiomyolipoma of right kidney; Benign prostatic hyperplasia with lower urinary tract symptoms, symptom details unspecified; Chronic midline low back pain without sciatica 05/04/2025 Telephone Internal Medicine - [address] [place] [address] Dana Gutierrez, LUIS 05/04/2025 Telephone Internal Medicine - [address] [phone] Birdie Dwyer MD 04/30/2025 1:57 PM EDT - 05/03/2025 2:02 PM EDT Hospital Encounter [facility] [address] [place] [phone] Steve Goodwin MD Jones, Christopher, MD Seralathan, Manikandan, MD Bilateral lower extremity edema (Primary Dx); Dyspnea, unspecified type; Cystitis; Gastroesophageal reflux disease, unspecified whether esophagitis present Discharge Disposition: Home-Health Care [facility] 04/30/2025 10:15 AM EDT Office Visit Internal Medicine [address] [address] Uzma Masters, FELIX Dehydration (Primary Dx) 04/27/2025 Telephone Internal Medicine - [address] [phone] Birdie Dwyer MD 03/19/2025 Lab Requisition [facility] [address] [place] [phone] Rajinder Vidal MD Weakness 03/12/2025 Lab Requisition [facility] [address] [place] [phone] Rajinder Vidal MD Weakness from Last 3 Months Immunizations Immunization Administration Dates Next Due H1N1 Inj Preservative Free 05/27/2009 Influenza Quadravalent, MDCK , 0.5ml, with preservative (Flucelvax) 6mo and older 05/16/2018 Influenza trivalent, 0.5mL ( Fluad) 65yo and older 04/13/2023,04/16/2022,06/05/2021,05/18 Influenza trivalent, 0.5mL, preservative free (Fluarix; FluLaval; Fluzone) ages 6mo and older (Afluria) 3 years and older 08/30/2013,03/31/2011 BeDo SARS-CoV-2 COVID-19, mRNA, LNP-S, preservative free 06/04/2022,09/13/2020,08/23/2020 [...] AG, SCREEN; COMMENT: 0.3 VASECTOMY 03/2006 PROCEDURE: LA VASECTOMY UNI/BI SPX W/POSTOP SEMEN EXAMS; COMMENT: Jose Francisco OTHER SURGICAL HISTORY 02/2022 Bilateral PROCEDURE: LA ANES RPR RUPTURED ACHILLES TENDON W/WO GRAFT; COMMENT: bilat CARDIOVASCULAR STRESS TEST 02/2007 PROCEDURE: LA CV STRS TST XERS&/OR RX CONT ECG W/O I&R; COMMENT: neg ESOPHAGOGASTRODUODENOSCOPY 05/15/2008 PROCEDURE: LA EGD TRANSORAL BIOPSY SINGLE/MULTIPLE; COMMENT: Esophagitis-bx:Nl, Antral gastritis and gastric nodule with umbilication-bx:Chronic Gastritis HPylori+ (treated 06/2008), Bleeding from nodule after biopsy controlled with endoclips, nl SB-bx:focal lymphatic dilatation(non-specific) SHOULDER SURGERY 2008 PROCEDURE: HISTORICAL SHOULDER SURGERY; COMMENT: Ruark; Right COLONOSCOPY 08/31/2006 PROCEDURE: LA COLONOSCOPY STOMA DX INCLUDING COLLJ SPEC SPX; COMMENT: Diverticulosis: scattered left-sided and ascending colonic. Dr. Oneil COLONOSCOPY W/ POLYPECTOMY 11/25/2016 PROCEDURE: LA COLSC FLX W/RMVL OF TUMOR POLYP LESION SNARE TQ; COMMENT: tics and adenomas; repeat in 5 yrs OTHER SURGICAL HISTORY N/A PROCEDURE: LA THYROIDECTOMY TOTAL/COMPLETE OTHER SURGICAL HISTORY 08/2021 PROCEDURE: LA MEDIASTINOSCOPY INCLUDES MEDIASTINAL MASS BIOPSY; COMMENT: thymoma [...] re flux disease) Cancer of chest (wall) ([facility] V24, [facility] V28) DX:Cancer of chest (wall) ([facility]) [...] for your loved ones. For example, child attendant or elderly care for an older [...] your living situation? Unrecognized valu e 11/10/2024 Interpersonal Safety Answer Date Record ed Physical Abuse Unrecognized value 04/30/2025 Verbal Abuse Unrecognized value 04/30/2025 Sex and Gender Information Value Date Recorded Sex Assigned at Not on file Legal Sex Male 7:12 AM EST Gender Identity Not on file Sexual Orientation Not on file Last Filed Vital Signs Vital Sign Reading Time Taken Comments Blood Pressure 107/62 05/17/2025 10:42 AM EST Pulse 99 05/17/2025 10:31 AM EST Temperature 36.3 C (97.3 F) 05/03/2025 7:51 AM EDT Respiratory Rate 18 05/03/2025 7:51 AM EDT Oxygen Saturation 95% 05/03/2025 7:51 AM EDT Inhaled Oxygen Concentration - - Weight 113 kg (249 lb 9.6 oz) 05/17/2025 10:31 A M EST Height 185.4 cm (6' 1 ) 04/30/2025 1:51 PM EDT Body Mass Index 32.93 04/30/2025 1:51 PM EDT Plan of Treatment Upcoming Encounters Date Type Department Care Team (Late st Contact Info) Description 06/18/2025 3:00 PM EST Office Visit Internal Medicine - [address] [phone] John Paul Leyva, FELIX [address] [place] [address] 06/27/2025 3:15 PM EST Office Visit Internal Medicine - [address] [phone] Uzma Masters NP [address] [place] [address] 10/10/2025 2:00 PM EDT Office Visit Internal Medicine - [address] [phone] Birdie Dywer MD [address] [place] [address] Health Maintenance Due Date Last Done Comments RSV Immunization Adult Patients (1 - Risk 50-74 years 1-dose series) 2000 COVID-19 Vaccine ( season) 2025 05/22/2024, 06/04/2022, 01/12/2022, Additional history exists Medicare Annual Wellness Visit 11/10/2025 11/10/2024 Social Influencers of Health Screening 11/10/2025 11/10/2024 Hypertension/CHF/CAD Annual BMP Blood Test 05/02/2026 05/02/2025, 05/01/2025, 04/30/2025, Additional history exists Falls Risk Assessment 05/03/2026 05/03/2025 Cholesterol Screening (Lipid Panel) 11/10/2029 11/10/2024, 07/27/2024, 05/02/2024, Additional history exists DTaP,Tdap,and Td Vaccines (5 - Td or Tdap) 04/13/2033 04/13/2023, 09/23/2012, 11/20/2006, Additional history exists Colorectal Cancer Screening: Colonoscopy 10/10/2033 2023, 2023 Hepatitis C Screening Completed 07/23/2010 Pneumococcal Vaccine: 50+ Years Completed 06/05/2021, 09/02/2017 Zoster Vaccines Completed 03/22/2023, 06/16/2022 Abdominal Aortic Aneurysm (AAA) Screen Discontinued 05/02/2024 Depression Screening Completed 11/10/2024 Influenza Vaccine Completed 03/12/2025, , 04/13/2023, Additional history exists HIB Vaccines Aged Out No longer eligi [...] Procedure Name Priority Date/Time Associated Diagnosis Comments ECG ANNOTATED 06/08/2025 CULTURE URINE Routine 05/02/2025 9:15 AM EDT MANUAL DIFFERENTIAL - SYSMEX WAM Routine 05/02/2025 6:49 AM EDT CBC WITH AUTO DIFFERENTIAL Routine 05/02/2025 6:49 AM EDT CBC AND DIFFERENTIAL Routine 05/02/2025 6:49 AM EDT BASIC METABOLIC PANEL Routine 05/02/2025 6:49 AM EDT MAGNESIUM Routine 05/02/2025 6:49 AM EDT PHOSPHORUS Routine 05/02/2025 6:49 AM EDT TRANSTHORACIC ECHOCARDIOGRAM (TTE) COMPLETE Routine 05/01/2025 11:13 AM EDT Bilateral lower extremity edema CULTURE BLOOD Routine 05/01/2025 9:11 AM EDT CULTURE BLOOD Routine 05/01/2025 9:07 AM EDT CBC WITH AUTO DIFFERENTIAL Routine 05/01/2025 6:50 AM EDT CBC AND DIFFERENTIAL Routine 05/01/2025 6:50 AM EDT BASIC METABOLIC PANEL Routine 05/01/2025 6:[address] ANGIO CHEST WO AND/OR W CONTRAST STAT 04/30/2025 4:32 PM EDT Dyspnea, unspecified type CT ABDOMEN PELVIS W CONTRAST STAT 04/30/2025 4:32 PM EDT CULTURE BLOOD STAT 04/30/2025 3:36 PM EDT B-TYPE NATRIURETIC PEPTIDE STAT 04/30/2025 3:07 PM EDT TROPONIN I HIGH SENSITIVITY STAT 04/30/2025 3:07 PM EDT LACTATE, WITH REFLEX STAT 04/30/2025 3:07 PM EDT BLOOD CULTURE PATHOGENS MOLECULAR STUDY 2 Routine 04/30/2025 3:07 PM EDT CULTURE BLOOD STAT 04/30/2025 3:07 PM EDT ECG 12-LEAD STAT 04/30/2025 3:00 PM EDT [id number], RSV, FLU A AND B QUALITATIVE RT-PCR, INTERNAL LAB STAT 04/30/2025 2:56 PM EDT URINALYSIS WITH REFLEX MICROSCOPIC STAT 04/30/2025 2:53 PM EDT URINALYSIS WITH REFLEX MICROSCOPIC STAT 04/30/2025 2:53 PM EDT VAS US DUPLEX LOWER EXT VENOUS BILAT STAT 04/30/2025 2:45 PM EDT Bilateral lower extremity edema CREATINE KINASE STAT Add-on 04/30/2025 1:50 PM EDT CBC WITH AUTO DIFFERENTIAL STAT 04/30/2025 1:50 PM EDT LIPASE STAT 04/30/2025 1:50 PM EDT COMPREHENSIVE METABOLIC PANEL STAT 04/30/2025 1:50 PM EDT CBC AND DIFFERENTIAL STAT 04/30/2025 1:50 PM EDT CBC WITH AUTO DIFFERENTIAL Routine 04/30/2025 11:52 AM EDT Dehydration CBC AND DIFFERENTIAL Routine 04/30/2025 11:52 AM EDT Dehydration BASIC METABOLIC PANEL Routine 03/20/2025 8:10 AM EDT Weakness COMPLETE BLOOD COUNT Routine 03/20/2025 8:10 AM EDT Weakness BASIC METABOLIC PANEL Routine 03/13/2025 6:28 AM EDT Weakness COMPLETE BLOOD COUNT Routine 03/13/2025 6:28 AM EDT Weakness LIPID PANEL WITH REFLEX TO DIRECT LDL Routine 11/10/2024 3:56 PM EDT Hyperlipidemia, unspecified hyperlipidemia type COLONOSCOPY Routine 2023 HEPATITIS C SCREENING Routine 07/23/2010 from Last 3 Months or Most Recently Relevant to Health Maintenance Results * ECG-Annotated (06/08/2025) us Provider Onbase MD ECG ORDERABLES Final Result * Culture urine (05/02/2025 9:15 AM EDT) Pathologist [facility] Culture, Urine No growth 05/03/2025 8:57 AM EDT [facility] Urine Urine specimen obtained by clean catch procedure / Unknown Non-blood Collection / Unknown 05/02/2025 9:15 AM EDT 05/02/2025 10:46 AM EDT Pako Gandara MD LAB MICROBIOLOGY - GENE RAL ORDERABLES Final Result [facility] [address] [place] [address], [place] [phone] * (ABNORMAL) Manual differential (05/02/2025 6:49 AM EDT) Neutrophils % 60.0 % LAB HEMETOLOGY METHOD 5 8:06 AM EDT [facility] Lymphocytes % 25.0 % LAB HEMETOLOGY METHOD 5 8:06 AM EDT [facility] Monocytes % 10.0 % LAB HEMETOLOGY METHOD 5 8:06 AM EDT [facility] Eosinophils % 3.0 % LAB HEMETOLOGY METHOD 5 8:06 AM EDT [facility] Basophils % 1.0 % LAB HEMETOLOGY METHOD 5 8:06 AM [facility] Metamyelocytes % 1.0(H) % LAB HEMETOLOGY METHOD 5 8:06 AM [facility] Neutrophils Absolute Manual 5.76 1.50 - 7.00 K/mcL LAB HEMETOLOGY METHOD 5 8:06 AM [facility] Lymphocytes Absolute 2.40 1.00 - 5.00 K/mcL LAB HEMETOLOGY METHOD 5 8:06 AM [facility] Monocytes Absolute Manual 0.96 0.20 - 1.00 K/mcL LAB HEMETOLOGY METHOD 5 8:06 AM [facility] Eosinophils Absolute Manual 0.29 0.00 - 0.50 K/mcL LAB HEMETOLOGY METHOD 5 8:06 AM [facility] Basophils Absolute Manual 0.10 0.00 - 0.20 K/mcL LAB HEMETOLOGY METHOD 5 8:06 AM [facility] Metamyelocytes Absolute Manual 0.10(H) 0.00 - 0.00 K/mcL LAB HEMETOLOGY METHOD 5 8:06 AM [facility] Rbc Morphology Consistent with indices Consistent with indices, Normal for [place] LAB HEMETOLOGY METHOD 5 8:06 AM [facility] Platelet Morphology - WAM See Note(A) Normal LAB HEMETOLOGY METHOD 5 8:06 AM [facility] Comment:PLT: Large platelets seen Blood Venous blood specimen / Unknown Venipuncture / Unknown 05/02/2025 6:49 AM EDT 05/02/2025 7:11 AM EDT Pako Gandara MD LAB BLOOD ORDERABLES Fi nal Result [facility] [address] [place] [address], * (ABNORMAL) CBC auto differential (05/02/2025 6:49 AM EDT) Only the most recent of4 resultswithin the time period is included. WBC 9.6 4.8 - 10.8 K/mcL LAB HEMETOLOGY METHOD 05/02/2025 8:06 AM EDT [facility] RBC 3.60(L) 4.50 - 5.50 M/mcL LAB HEMETOLOGY METHOD 05/02/2025 8:[facility] Hemoglobin 10.3(L) 13.5 - 17.5 g/dL LAB HEMETOLOGY METHOD 05/02/2025 8:06 AM EDT [facility] Hematocrit 31.7(L) 42.0 - 54.0 % LAB HEMETOLOGY METHOD 05/02/2025 8:06 AM EDT [facility] MCV 87.3 79.0 - 98.0 FL LAB HEMETOLOGY METHOD 05/02/2025 8:06 AM EDT [facility] MCH 28.4 27.0 - 32.0 pcg LAB HEMETOLOGY METHOD 05/02/2025 8:06 AM EDT [facility] MCHC 32.5 32.0 - 37.0 g/dL LAB HEMETOLOGY METHOD 05/02/2025 8:06 AM EDT [facility] RDW 14.9 11.0 - 15.0 % LAB HEMETOLOGY METHOD 05/02/2025 8:06 AM [facility] Platelets 200 130 - 400 K/mcL LAB HEMETOLOGY METHOD 05/02/2025 8:06 AM EDT [facility] MPV 11.4(H) 7.0 - 11.0 FL LAB HEMETOLOGY METHOD 05/02/2025 8:06 AM EDT [facility] NRBC 0.0 <1.0 % LAB HEMETOLOGY METHOD 05/02/2025 8:06 AM EDT [facility] NRBC Absolute 0.00 <0.10 K/mcL LAB HEMETOLOGY METHOD 05/02/2025 8:06 AM EDT [facility] Blood Venous blood specimen / Unknown Venipuncture / Unknown 05/02/2025 6:49 AM EDT 05/02/2025 7:11 AM EDT Pako Gandara MD LAB BLOOD ORDERABLES Fi nal Result Performing Organization Address City/[facility]/ZIP Co de Phone Number [facility] [address] [place] [address], * Phosphorus (05/02/2025 6:49 AM EDT) Phosphorus 3.5 2.5 - 4.5 mg/dL LAB CHEMISTRY METHOD 05/02/2025 8:02 AM EDT [facility] Blood Venous blood specimen / Unknown Venipuncture / Unknown 05/02/2025 6:49 AM EDT 05/02/2025 7:11 AM EDT Pako Gandara MD LAB BLOOD ORDERABLES Fi nal Result [facility] [address] [place] [address], [place] [phone] * Magnesium (05/02/2025 6:49 AM EDT) Magnesium 2.0 1.9 - 2.6 mg/dL LAB CHEMISTRY METHOD 05/02/2025 8:02 AM EDT [facility] Blood Venous blood specimen / Unknown Venipuncture / Unknown 05/02/2025 6:49 AM EDT 05/02/2025 7:11 AM EDT Pako Gandara MD LAB BLOOD ORDERABLES Fi nal Result [facility] [address] [place] [address], * (ABNORMAL) Basic metabolic panel (05/02/2025 6:49 AM EDT) Only the most recent of4 resultswithin the time period is included. Sodium 138 133 - 145 mmol/L LAB CHEMISTRY METHOD 05/02/2025 8:02 AM [facility] Potassium 3.5 3.5 - 5.5 mmol/L LAB CHEMISTRY METHOD 05/02/2025 8:02 AM [facility] Chloride 104 96 - 110 mmol/L LAB CHEMISTRY METHOD 05/02/2025 8:02 AM [facility] CO2 28 21 - 32 mmol/L LAB CHEMISTRY METHOD 05/02/2025 8:02 AM [facility] Anion Gap 6 3 - 11 LAB CHEMISTRY METHOD 05/02/2025 8:02 AM [facility] Glucose 130(H) 70 - 100 mg/dL LAB CHEMISTRY METHOD 05/02/2025 8:02 AM [facility] BUN 10 5 - 25 mg/dL LAB CHEMISTRY METHOD 05/02/2025 8:02 AM [facility] Creatinine 0.92 0.70 - 1.30 mg/dL LAB CHEMISTRY METHOD 05/02/2025 8:02 AM [facility] eGFR 87 >=60 mL/min/1. 73m2 LAB CHEMISTRY METHOD 05/02/2025 8:02 AM [facility] Comment:Calculation based on the Chronic Kidney Disease Epidemiology Collaboration (CKD-EPI) equation refit without adjustment for race. BUN/Creatinine Ratio 10.9 LAB CHEMISTRY METHOD 05/02/2025 8:02 AM EDT [facility] Calcium 8.4(L) 8.5 - 10.5 mg/dL LAB CHEMISTRY METHOD 05/02/2025 8:02 AM EDT [facility] Blood Venous blood specimen / Unknown Venipuncture / Unknown 05/02/2025 6:49 AM EDT 05/02/2025 7:11 AM EDT us Pako Gandara MD LAB BLOOD ORDERABLES Fi nal Result [facility] [address] [place] [address], [place] [phone] * (ABNORMAL) TRANSTHORACIC ECHOCARDIOGRAM (TTE) COMPLETE (05/01/2025 11:13 AM EDT) Left Atrium Minor [place] 6.5 cm CV PACS Left Atrium Major [place] 6.7 cm CV PACS LA Area Sys (A2C) 32 cm2 CV PACS LA Area Sys (A4C) 27 cm2 CV PACS LA Volume (BP) 107 mL CV PACS RA Area 24.0 cm2 CV PACS RA 2D Volume 87 mL CV PACS AV Mean Gradient 3 mmHg CV PACS Ao VTI 23.2 cm CV PACS AV Peak Froy 1.2 m/s CV PACS AV Peak Gradient 6 mmHg CV PACS AV Area Continuity Equation 2.9 cm2 CV PACS AV Area Peak Velocity 3.3 cm2 CV PACS Aortic Sinus Valsalva 3.7 cm CV PACS Ascending Aorta 3.3 cm CV PACS IVSD 1.0 0.6 - 1.0 cm CV PACS LVIDD 5.6 4.2 - 5.8 cm CV PACS LVIDS 3.5 2.5 - 4.0 cm CV PACS LVOT Diameter 2.2 cm CV PACS LVOT Mean Froy 0.7 m/s CV PACS LVOT Mean Grad 2 mmHg CV PACS LVOT Peak VTI 17.9 cm CV PACS LVOT Peak Froy 1.0 m/s CV PACS LVOT Peak Gradient 4 mmHg CV PACS MV E' Tissue Velocity Lateral 7 cm/s CV PACS MV E' Tissue Velocity Septal 7 cm/s CV PACS LVOT Area 3.8 cm2 CV PACS LVOT Stroke Volume 68 mL CV PACS MV Deceleration [place] 3.4 m/s2 CV PACS E Wave Deceleration Time 173 119 - 242 ms CV PACS MV PHT 50 ms CV PACS MV Peak A Froy 0.50 m/s CV PACS MV Peak E Froy 0.60 m/s CV PACS MV Mean Gradient 1 mmHg CV PACS MV VTI 17.9 cm CV PACS Mitral Valve Max Velocity 0.7 m/s CV PACS MV Peak Gradient 2 mmHg CV PACS MV Area PHT 4.3 cm2 CV PACS MV Area Continuity Equation 3.8 cm2 CV PACS PV Acceleration Time 130 ms CV PACS PV Acceleration Time 123 ms CV PACS PV Acceleration Time 127 ms CV PACS RV Diastolic Basal Dimension 4.5(A) 2.5 - 4.1 cm CV PACS RV S' 15 cm/s CV PACS TAPSE 27 mm CV PACS TR Peak Velocity 2.40 m/s CV PACS TR Peak Gradient 23 mmHg CV PACS TV Peak Gradient 7 mmHg CV PACS E/E' Ratio Septal 9 CV PACS E/E' Ratio Averaged 9 CV PACS LVOT Stroke Index 0 mL/m2 CV PACS LVOT:AV VTI Index 0.77 CV PACS FS 38 % CV PACS Ascending Aorta Index 1.38 cm/m2 CV PACS MV VTI:LVOT VTI ratio 1.0 CV PACS LVOT flow 266 mL/s CV PACS RA 2D Volume Index 36 18 - 32 mL/m2 CV PACS PATSY Index (VTI) 1.22 cm2/m2 CV PACS PATSY Index (Pk Froy) 1.38 cm2/m2 CV PACS LVIDD Index 2.33 cm/m2 CV PACS LVIDS Index 1.46 cm/m2 CV PACS AV Velocity Ratio 0.86 CV PACS E/A Ratio 1.2 0.8 - 2.0 CV PACS E/E' Ratio Lateral 9 CV PACS LA Volume Index (BP) 43 mL/m2 CV PACS BSA 2.42 m2 CV PACS LVPWD 1.2(A) 0.6 - 1.0 cm CV PACS LV Mass 2D 246(A) 96 - 200 g CV PACS LV Mass Index 2D 104(A) 50 - 102 g/m2 CV PACS Relative Wall Thickness ratio 0.42 0.24 - 0.42 CV PACS RV Free Wall Peak S' 15 cm/s CV PACS RA Major [place] 5.4 cm CV PACS RA Major [place] Index 2.3 2.1 - 2.7 cm/m2 CV PACS AV Area 2D 3.3 cm2 CV PACS PATSY Index (2D) 1.38 cm2/m2 CV PACS TV Max Velocity 1.3 m/s CV PACS AV Area Index 1.3 CV PACS Anatomical Region Laterality Modality Ultrasound Narrative 05/01/2025 11:52 AM EDT Left ventricle cavity size is normal. Wall thickness was not well visualized. Systolic function is normal with an ejection fraction of 55%. There are no regional LV wall motion abnormalities. Indeterminate diastolic function. Right ventricle cavity is mildly enlarged. Right ventricular systolic function is normal. Left atrium cavity is moderately dilated. Right atrium cavity is mildly dilated. No hemodynamically significant valve disease. See remainder of the report for additional findings. Left Ventricle Left ventricle cavity size is normal. Wall thickness was not well visualized. Systolic function is normal with an ejection fraction of 55%. There are no regional LV wall motion abnormalities. Indeterminate diastolic function. Right Ventricle Right ventricle cavity is mildly dilated. Systolic function is normal. Left Atrium Left atrium cavity is moderately dilated. Right Atrium Right atrium cavity is mildly dilated. IVC/SVC Inferior vena cava structure is normal. RA pressures is estimated to be 3 mmHg (IVC diameter <21 mm and decreases >50% during inspiration). Mitral Valve The leaflets are mildly thickened. There is mild annular calcification. There is trace regurgitation. There is no evidence of mitral valve stenosis. Tricuspid Valve Tricuspid valve structure is normal. There is trace regurgitation. There is no evidence of tricuspid valve stenosis. Aortic Valve The aortic valve is trileaflet. The leaflets are mildly thickened. There is trace regurgitation. There is no evidence of aortic valve stenosis. Pulmonic Valve Visualized portions of the pulmonic valve appear normal. There is trace pulmonic valve regurgitation. There is no evidence of pulmonic valve stenosis. Ascending Aorta The aorta appears normal in size. Pericardium Pericardium appears normal. There is no pericardial effusion. Study Details Overall the study quality was adequate. Wall Scoring Baseline Score Index: 1.00 The left ventricular wall motion is normal. us Pako Gandara MD CV ECHO PROCEDURES Sharon l Result * Blood Culture, Peripheral Draw #2 (05/01/2025 9:11 AM EDT) Only the most recent of4 resultswithin the time period is included. Culture, Blood No growth at 5 days 05/06/2025 9:01 AM EST [facility] Blood Venous blood specimen / Unknown Venipuncture / Unknown 05/01/2025 9:11 AM EDT 05/01/2025 9:19 AM EDT us Pako Gandara MD LAB MICROBIOLOGY - GENE RAL ORDERABLES Final Result [facility] [address] [place] [address], * CT Abdomen Pelvis w Contrast (04/30/2025 4:32 PM EDT) Anatomical Region Laterality Modality Body Computed Tomogra phy 04/30/2025 5:17 PM EDT Impressions 04/30/2025 5:23 PM EDT Cystitis with ascending urinary tract infection. -------- FINAL REPORT -------- Dictated By: Gary Navarrete Dictated Date: 04/30/2025 17:17 ET Assigned Physician: Gary Navarrete Reviewed and Electronically Signed By: Gary Navarrete Signed Date: 04/30/2025 17:23 ET Workstation ID: [id number] Transcribed By: Self Edit Transcribed Date: 04/30/2025 17:17 ET Narrative 04/30/2025 5:23 PM EDT PROCEDURE: CT ABDOMEN/PELVIS WITH CONTRAST INDICATION: diarrhea, hematuria TECHNIQUE: CT of the abdomen and pelvis following the intravenous administration of 90cc Isovue 370. Multiplanar reformats. The examination was performed utilizing dose reduction techniques. Total DLP 1701 COMPARISON: No priors available. FINDINGS: LOWER THORAX: Atelectasis at the lung bases. HEPATOBILIARY: Presumed liver cysts. No cholelithiasis or biliary duct dilatation. SPLEEN: No focal lesion. PANCREAS: No focal mass or ductal dilatation. ADRENALS: No nodules. KIDNEYS/URETERS: Bilateral renal cysts. No hydronephrosis. There is enhancement of the ureters PELVIC ORGANS/BLADDER: . There is wall thickening of the bladder with inflammatory change PERITONEUM / RETROPERITONEUM: Retroperitoneal stranding. No free fluid or free air. . VESSELS: Scattered atherosclerotic calcifications throughout the aorta and its major branches. No aneurysm. GI TRACT: Thickening of the right colon presumably related to underdistention. No small bowel obstruction. Normal caliber appendix. BONES AND SOFT TISSUES: Scattered degenerative changes seen throughout the bones. Degenerative spinal listhesis with spinal stenosis and neural foraminal narrowing. Soft tissues are unremarkable. Procedure Note Gary Navarrete MD - 04/30/2025 PROCEDURE: CT ABDOMEN/PELVIS WITH CONTRAST INDICATION: diarrhea, hematuria TECHNIQUE: CT of the abdomen and pelvis following the intravenousadministration of 90cc Isovue 370. Multiplanar reformats. The examinationwas performed utilizing dose reduction techniques. Total DLP 1701 COMPARISON: No priors available. FINDINGS: LOWER THORAX: Atelectasis at the lung bases. HEPATOBILIARY: Presumed liver cysts. No cholelithiasis or biliary ductdilatation. SPLEEN: No focal lesion. PANCREAS: No focal mass or ductal dilatation. ADRENALS: No nodules. KIDNEYS/URETERS: Bilateral renal cysts. No hydronephrosis. There isenhancement of the ureters PELVIC ORGANS/BLADDER: . There is wall thickening of the bladder withinflammatory change PERITONEUM / RETROPERITONEUM: Retroperitoneal stranding. No free fluid orfree air. . VESSELS: Scattered atherosclerotic calcifications throughout the aorta andits major branches. No aneurysm. GI TRACT: Thickening of the right colon presumably related tounderdistention. No small bowel obstruction. Normal caliber appendix. BONES AND SOFT TISSUES: Scattered degenerative changes seen throughout thebones. Degenerative spinal listhesis with spinal stenosis and neuralforaminal narrowing. Soft tissues are unremarkable. IMPRESSION: Cystitis with ascending urinary tract infection. -------- FINAL REPORT -------- Dictated By: Gary Navarrete Dictated Date: 04/30/2025 17:17 ET Assigned Physician: Gary Navarrete Reviewed and Electronically Signed By: Gary Navarrete Signed Date: 04/30/2025 17:23 ET Workstation ID: [id number] Transcribed By: Self Edit Transcribed Date: 04/30/2025 17:17 ET Steve Goodwin MD IMRalf CT PROCEDURES Final Result * CT Angio Chest wo and/or w Contrast (04/30/2025 4:32 PM EDT) Anatomical Region Laterality Modality Body Computed Tomogra phy 04/30/2025 5:24 PM EDT Impressions 04/30/2025 5:31 PM EDT 1. No evidence for large central pulmonary embolism. Smaller pulmonary emboli cannot be excluded due to motion artifact. 2. No acute cardiopulmonary disease. -------- FINAL REPORT -------- Dictated By: Gary Navarrete Dictated Date: 04/30/2025 17:24 ET Assigned Physician: Gary Navarrete Reviewed and Electronically Signed By: Gary Navarrete Signed Date: 04/30/2025 17:31 ET Workstation ID: [id number] Transcribed By: Self Edit Transcribed Date: 04/30/2025 17:24 ET Narrative 04/30/2025 5:31 PM EDT PROCEDURE: CT ANGIO CHEST INDICATION: sob, recent surgery, cough, fever, chills COMPARISON: None. TECHNIQUE: CT pulmonary angiogram performed following uneventful IV administration of ISOVUE contrast material with bolus timing technique from the thoracic inlet through the lung bases. 3-D multiplanar reformations were obtained by the technologist on an independent workstation. [employer] VCT dose reduction utilizing iterative reconstruction. Total exam DLP 1700 (mGy-cm) FINDINGS: There is no evidence for large central pulmonary embolism. Smaller pulmonary emboli cannot be excluded due to motion artifact. Cardiomegaly. There is no pericardial effusion. Scattered coronary artery calcifications. The thoracic aorta is normal in caliber. There is no evidence for mediastinal or hilar lymphadenopathy. No concerning opacity. There are no pleural effusions. The visualized portion of the upper abdomen demonstrates no acute findings however technique was not optimized for evaluation for more subtle lesions. The included skeletal structures are within normal limits for technique. Procedure Note Gary Navarrete MD - 04/30/2025 PROCEDURE: CT ANGIO CHEST INDICATION: sob, recent surgery, cough, fever, chills COMPARISON: None. TECHNIQUE: CT pulmonary angiogram performed following uneventful IVadministration of ISOVUE contrast material with bolus timing techniquefrom the thoracic inlet through the lung bases. 3-D multiplanar reformations were obtained by the technologist on anindependent workstation. [employer] VCT dose reduction utilizing iterative reconstruction. Total exam DLP 1700 (mGy-cm) FINDINGS: There is no evidence for large central pulmonary embolism. Smallerpulmonary emboli cannot be excluded due to motion artifact. Cardiomegaly. There is no pericardial effusion. Scattered coronary arterycalcifications. The thoracic aorta is normal in caliber. There is no evidence for mediastinal or hilar lymphadenopathy. No concerning opacity. There are no pleural effusions. The visualized portion of the upper abdomen demonstrates no acute findingshowever technique was not optimized for evaluation for more subtlelesions. The included skeletal structures are within normal limits for technique. IMPRESSION: 1. No evidence for large central pulmonary embolism. Smaller pulmonaryemboli cannot be excluded due to motion artifact. 2. No acute cardiopulmonary disease. -------- FINAL REPORT -------- Dictated By: Gary Navarrete Dictated Date: 04/30/2025 17:24 ET Assigned Physician: Gary Navarrete Reviewed and Electronically Signed By: Gary Navarrete Signed Date: 04/30/2025 17:31 ET Workstation ID: [id number] Transcribed By: Self Edit Transcribed Date: 04/30/2025 17:24 ET Steve Goodwin MD [facility] CT PROCEDURES Final Result * Lactate, with Reflex (04/30/2025 3:07 PM EDT) LACTIC ACID 1.5 0.4 - 2.0 mmol/L LAB CHEMISTRY METHOD 04/30/2025 3:55 PM EDT [facility] ([facility]) [facility] Blood Venous blood specimen / Unknown Venipuncture / Unknown 04/30/2025 3:07 PM EDT 04/30/2025 3:14 PM EDT us Steve Goodwin MD LAB BLOOD ORDERABLES Final Resul t Performing Organization Address City/[facility]/ZIP Co de Phone Number [facility] [address] [place] [address], [place] [phone] * (ABNORMAL) Blood culture pathogens molecular study 2 (04/30/2025 3:07 PM EDT) [facility] Escherichia coli Detected (A) Not Detected LAB MICROBIOLOGY METHOD 05/01/2025 6:42 AM EDT [facility] Blood Venous blood specimen / Unknown Venipuncture / Unknown 04/30/2025 3:07 PM EDT 04/30/2025 3:14 PM EDT Steve Goodwin MD LAB MICROBIOLOGY - GENERAL ORDER DEMETRIUS Final Result Performing Organization Address [facility] de Phone Number [facility] [address] [place] [address], [place] [phone] * Troponin I High Sensitivity (04/30/2025 3:07 PM EDT) [facility] High Sensitivity Troponin I 13 <=79 ng/L LAB CHEMISTRY METHOD 04/30/2025 4:10 PM EDT [facility] Blood Venous blood specimen / Unknown Venipuncture / Unknown 04/30/2025 3:07 PM EDT 04/30/2025 3:14 PM EDT Narrative [facility] - 04/30/2025 4:10 PM EDT High levels of biotin in samples may falsely decrease hsTroponin values. Use caution when interpreting hsTroponin results in patients taking biotin who exhibit renal impairment (eGFR <60) or in patients taking more than 20 mg/day of biotin. us Steve Goodwin MD LAB BLOOD ORDERABLES Final Resul t Performing Organization Address City/[facility]/ZIP Co de Phone Number [facility] [address] [place] [address], [place] [phone] * (ABNORMAL) B-Type Natriuretic Peptide (BNP) (04/30/2025 3:07 PM EDT) [facility] BNP 174(H) <=100 pcg/mL LAB CHEMISTRY METHOD 04/30/2025 4:00 PM EDT [facility] Blood Venous blood specimen / Unknown Venipuncture / Unknown 04/30/2025 3:07 PM EDT 04/30/2025 3:14 PM EDT Steve Goodwin MD LAB BLOOD ORDERABLES Final Resul t [facility] [address] [place] [address], [place] [phone] * ECG 12 lead (04/30/2025 3:00 PM EDT) [facility] Ventricular Rate ECG 83 BPM GEMUSE Atrial Rate 83 BPM GEMUSE P-R Interval 202 ms GEMUSE QRS Duration 144 ms GEMUSE Q-T Interval 444 ms GEMUSE QTc 521 ms GEMUSE P Wave [place] 41 degrees GEMUSE R [place] -61 degrees GEMUSE T [place] 18 degrees GEMUSE ECG Interpretation Normal sinus rhythm Right bundle branch block Left anterior fascicular block Bifascicular block Abnormal ECG When compared with ECG of 21-SEP-2024 11:09, Premature ventricular complexes are no longer Present LA interval has decreased Confirmed by Rosi WOLFF JAMES ([id number]) on 04/30/2025 4:25:26 PM GEMUSE 04/30/2025 3:00 PM EDT 04/30/2025 4:25 PM EDT us Steve Goodwin MD ECG ORDERABLES Final Result GEMUSE * [id number], RSV, Influenza A and B qualitative RT-PCR (04/30/2025 2:56 PM EDT) [facility] Influenza A PCR Not Detected Not Detected LAB MICROBIOLOGY METHOD 04/30/2025 4:03 PM EDT [facility] Influenza B PCR Not Detected Not Detected LAB MICROBIOLOGY METHOD 04/30/2025 4:03 PM EDT [facility] RSV PCR Not Detected Not Detected LAB MICROBIOLOGY METHOD 04/30/2025 4:03 PM EDT [facility] SARS COV-2 Not Detected Not Detected LAB MICROBIOLOGY METHOD 04/30/2025 4:03 PM EDT [facility] Swab Nasopharyngeal structure / Unknown Non-blood Collection / Unknown 04/30/2025 2:56 PM EDT 04/30/2025 3:17 PM EDT Steve Goodwin MD LAB MICROBIOLOGY - GENERAL ORDER DEMETRIUS Final Result [facility] [address] [place] [address], * (ABNORMAL) Urinalysis with reflex microscopic (04/30/2025 2:53 PM EDT) [facility] Specific [place] Urine 1.010 1.003 - 1.030 LAB URINALYSIS - AUTOMATED METHOD 04/30/2025 3:50 PM EDT [facility] pH, Urine 6.5 5.0 - 8.0 pH LAB URINALYSIS - AUTOMATED METHOD 04/30/2025 3:50 PM EDT [facility] Leukocytes, Urine Large(A) Negative LAB URINALYSIS - AUTOMATED METHOD 04/30/2025 3:50 PM EDT [facility] Nitrite, Urine Positive(A) Negative LAB URINALYSIS - AUTOMATED METHOD 04/30/2025 3:50 PM EDT [facility] Protein, Urine 100(A) <=Trace mg/dL LAB URINALYSIS - AUTOMATED METHOD 04/30/2025 3:50 PM EDT [facility] Glucose, Urine Negative Negative mg/dL LAB URINALYSIS - AUTOMATED METHOD 04/30/2025 3:50 PM [facility] Ketones, Urine Trace(A) Negative mg/dL LAB URINALYSIS - AUTOMATED METHOD 04/30/2025 3:50 PM [facility] Urobilinogen , Urine 2.0(A) 0.2 - 1.0 mg/dL LAB URINALYSIS - AUTOMATED METHOD 04/30/2025 3:50 PM [facility] Bilirubin, Urine Moderate(A) Negative LAB URINALYSIS - AUTOMATED METHOD 04/30/2025 3:50 PM [facility] Blood, Urine Large(A) Negative LAB URINALYSIS - AUTOMATED METHOD 04/30/2025 3:50 PM [facility] RBC, Urine 3,789.5(H) 0 - 4 /HPF LAB URINALYSIS - AUTOMATED METHOD 04/30/2025 3:50 PM [facility] WBC, Urine 2,246.0(H) 0 - 4 /HPF LAB URINALYSIS - AUTOMATED METHOD 04/30/2025 3:50 PM [facility] Squamous Epithelial, Urine 19 0 - 60 /LPF LAB URINALYSIS - AUTOMATED METHOD 04/30/2025 3:50 PM [facility] Bacteria, Urine Moderate(A) Negative /HPF LAB URINALYSIS - AUTOMATED METHOD 04/30/2025 3:50 PM [facility] Hyaline Casts, Urine 10.0(H) 0 - 3 /LPF LAB URINALYSIS - AUTOMATED METHOD 04/30/2025 3:50 PM [facility] Urine Urine specimen obtained by clean catch procedure / Unknown Non-blood Collection / Unknown 04/30/2025 2:53 PM EDT 04/30/2025 3:16 PM EDT Michelle SAINI LAB URINE ORDERABLES Donny worley Result [facility] [address] [place] [address], * Vascular US Duplex Lower Extremity Venous Bilateral (04/30/2025 2:45 PM EDT) Anatomical Region Laterality Modality Vascular, Abdomen Ultrasound 04/30/2025 2:52 PM EDT Impressions 04/30/2025 2:52 PM EDT NO RIGHT OR LEFT LOWER EXTREMITY DEEP VENOUS THROMBOSIS. -------- FINAL REPORT -------- Dictated By: Gary Navarrete Dictated Date: 04/30/2025 14:52 ET Assigned Physician: Gary Navarrete Reviewed and Electronically Signed By: Gary Navarrete Signed Date: 04/30/2025 14:52 ET Workstation ID: [id number] Transcribed By: Self Edit Transcribed Date: 04/30/2025 14:52 ET Narrative 04/30/2025 2:52 PM EDT PROCEDURE: VAS US DUPLEX LOWER EXT VENOUS BILAT INDICATION: edema TECHNIQUE: 2-D and color Doppler imaging of the lower extremity venous vasculature with compression and augmentation maneuvers. COMPARISON: No priors available. FINDINGS: RIGHT: There is normal flow, compression, and augmentation from the common femoral through the popliteal vein. Visualized calf veins unremarkable. LEFT: There is normal flow, compression, and augmentation from the common femoral through the popliteal vein. Visualized calf veins unremarkable. Procedure Note Gary Navarrete MD - 04/30/2025 PROCEDURE: VAS US DUPLEX LOWER EXT VENOUS BILAT INDICATION: edema TECHNIQUE: 2-D and color Doppler imaging of the lower extremity venousvasculature with compression and augmentation maneuvers. COMPARISON: No priors available. FINDINGS: RIGHT: There is normal flow, compression, and augmentation from the commonfemoral through the popliteal vein. Visualized calf veins unremarkable. LEFT: There is normal flow, compression, and augmentation from the commonfemoral through the popliteal vein. Visualized calf veins unremarkable. IMPRESSION: NO RIGHT OR LEFT LOWER EXTREMITY DEEP VENOUS THROMBOSIS. -------- FINAL REPORT -------- Dictated By: Gary Navarrete Dictated Date: 04/30/2025 14:52 ET Assigned Physician: Gary Navarrete Reviewed and Electronically Signed By: Gary Navarrete Signed Date: 04/30/2025 14:52 ET Workstation ID: [id number] Transcribed By: Self Edit Transcribed Date: 04/30/2025 14:52 ET Steve Goodwin MD CV VASCULAR PROCEDURES Final Res ult * Lipase (04/30/2025 1:50 PM EDT) [facility] Lipase 36 13 - 75 unit/L LAB CHEMISTRY METHOD 04/30/2025 2:39 PM EDT [facility] Blood Venous blood specimen / Unknown Venipuncture / Unknown 04/30/2025 1:50 PM EDT 04/30/2025 2:03 PM EDT Michelle SAINI LAB BLOOD ORDERABLES Fin al Result Performing Organization Address City/[facility]/ZIP Co de Phone Number [facility] [address] [place] [address], [place] [phone] * Creatine kinase (04/30/2025 1:50 PM EDT) [facility] Total CK 69 22 - 269 unit/L LAB CHEMISTRY METHOD 04/30/2025 2:42 PM EDT [facility] Blood Venous blood specimen / Unknown Venipuncture / Unknown 04/30/2025 1:50 PM EDT 04/30/2025 2:03 PM EDT Steve Goodwin MD LAB BLOOD ORDERABLES Final Resul t Performing Organization Address City/[facility]/ZIP Co de Phone Number [facility] [address] [place] [address], [place] [phone] * (ABNORMAL) Comprehensive metabolic panel (04/30/2025 1:50 PM EDT) [facility] Sodium 135 133 - 145 mmol/L LAB CHEMISTRY METHOD 04/30/2025 2:43 PM [facility] Potassium 3.5 3.5 - 5.5 mmol/L LAB CHEMISTRY METHOD 04/30/2025 2:43 PM [facility] Chloride 102 96 - 110 mmol/L LAB CHEMISTRY METHOD 04/30/2025 2:43 PM [facility] CO2 25 21 - 32 mmol/L LAB CHEMISTRY METHOD 04/30/2025 2:43 PM [facility] Anion Gap 8 3 - 11 LAB CHEMISTRY METHOD 04/30/2025 2:43 PM [facility] Glucose 117(H) 70 - 100 mg/dL LAB CHEMISTRY METHOD 04/30/2025 2:43 PM [facility] BUN 15 5 - 25 mg/dL LAB CHEMISTRY METHOD 04/30/2025 2:43 PM [facility] Creatinine 1.05 0.70 - 1.30 mg/dL LAB CHEMISTRY METHOD 04/30/2025 2:43 PM [facility] eGFR 74 >=60 mL/min/1. 73m2 LAB CHEMISTRY METHOD 04/30/2025 2:43 PM [facility] Comment:Calculation based on the Chronic Kidney Disease Epidemiology Collaboration (CKD-EPI) equation refit without adjustment for race. BUN/Creatinine Ratio 14.3 LAB CHEMISTRY METHOD 04/30/2025 2:43 PM [facility] Calcium 8.8 8.5 - 10.5 mg/dL LAB CHEMISTRY METHOD 04/30/2025 2:43 PM [facility] AST (SGOT) 47(H) 10 - 42 unit/L LAB CHEMISTRY METHOD 04/30/2025 2:43 PM [facility] ALT (SGPT) 49 10 - 60 unit/L LAB CHEMISTRY METHOD 04/30/2025 2:43 PM [facility] Alkaline Phosphatase 86 42 - 121 unit/L LAB CHEMISTRY METHOD 04/30/2025 2:43 PM EDT [facility] Total Protein 6.4 6.0 - 8.0 g/dL LAB CHEMISTRY METHOD 04/30/2025 2:43 PM EDT [facility] Albumin 2.8(L) 3.2 - 5.0 g/dL LAB CHEMISTRY METHOD 04/30/2025 2:43 PM EDT [facility] Total Bilirubin 0.9 0.0 - 1.4 mg/dL LAB CHEMISTRY METHOD 04/30/2025 2:43 PM EDT [facility] Blood Venous blood specimen / Unknown Venipuncture / Unknown 04/30/2025 1:50 PM EDT 04/30/2025 2:03 PM EDT us Michelle SAINI LAB BLOOD ORDERABLES Fin al Result [facility] [address] [place] [address], * (ABNORMAL) Complete blood count (03/20/2025 8:10 AM EDT) Only the most recent of2 resultswithin the time period is included. WBC 6.4 4.8 - 10.8 K/mcL LAB HEMETOLOGY METHOD 03/20/2025 11:39 AM EDT [facility] RBC 3.40(L) 4.50 - 5.50 [facility] LAB HEMETOLOGY METHOD 03/20/2025 11:39 AM EDT [facility] Hemoglobin 10.0(L) 13.5 - 17.5 g/dL LAB HEMETOLOGY METHOD 03/20/2025 11:39 AM EDT [facility] Hematocrit 31.1(L) 42.0 - 54.0 % LAB HEMETOLOGY METHOD 03/20/2025 11:39 AM EDT [facility] MCV 90.4 79.0 - 98.0 FL LAB HEMETOLOGY METHOD 03/20/2025 11:39 AM EDT [facility] MCH 29.1 27.0 - 32.0 pcg LAB HEMETOLOGY METHOD 03/20/2025 11:39 AM EDT [facility] MCHC 32.2 32.0 - 37.0 g/dL LAB HEMETOLOGY METHOD 03/20/2025 11:39 AM EDT [facility] RDW 16.5(H) 11.0 - 15.0 % LAB HEMETOLOGY METHOD 03/20/2025 11:39 AM T [facility] Platelets 153 130 - 400 K/mcL LAB HEMETOLOGY METHOD 03/20/2025 11:39 AM [facility] MPV 11.8(H) 7.0 - 11.0 FL LAB HEMETOLOGY METHOD 03/20/2025 11:39 AM EDT [facility] NRBC 0.0 <1.0 % LAB HEMETOLOGY METHOD 03/20/2025 11:39 AM [facility] NRBC Absolute 0.00 <0.10 K/mcL LAB HEMETOLOGY METHOD 03/20/2025 11:39 AM [facility] Blood Venous blood specimen / Unknown Venipuncture / Unknown 03/20/2025 8:10 AM EDT 03/20/2025 10:19 AM EDT us Rajinder Vidal MD LAB BLOOD ORDERABLES Final Resul t [facility] [address] [place] [address], * (ABNORMAL) Lipid panel with reflex to direct LDL (11/10/2024 3:56 PM EDT) [facility] Signature Cholesterol 127 0 - 200 mg/dL LAB CHEMISTRY METHOD 11/10/2024 7:20 PM EDT [facility] Triglycerides 93 0 - 150 mg/dL LAB CHEMISTRY METHOD 11/10/2024 7:20 PM EDT [facility] HDL 36(L) >=40 mg/dL LAB CHEMISTRY METHOD 11/10/2024 7:20 PM EDT [facility] LDL Calculated 72 0 - 100 mg/dL LAB CHEMISTRY METHOD 11/10/2024 7:20 PM EDT [facility] VLDL Cholesterol Marquez 18.6 mg/dL LAB CHEMISTRY METHOD 11/10/2024 7:20 PM EDT [facility] Non HDL Chol. (LDL+VLDL) 91 <145 mg/dL LAB CHEMISTRY METHOD 11/10/2024 7:20 PM [facility] Chol/HDL Ratio 3.5 0.0 - 4.4 LAB CHEMISTRY METHOD 11/10/2024 7:20 PM [facility] Blood Venous blood specimen / Unknown Venipuncture / Unknown 11/10/2024 3:56 PM EDT 11/10/2024 3:56 PM EDT Parrish Ashton NP LAB BLOOD ORDERABLES Final Res ult [facility] [address] [place] [address], * Colonoscopy (2023) Pathologist [facility] Colonoscopy no interpretation , abstracted Anatomical Region Laterality Modality Other Historical Provider HEALTH MAINTENANCE Final Result * Hepatitis C Screening (07/23/2010) Pathologist [facility] Hepatitis C Screening abstracted Historical Provider HEALTH MAINTENANCE Final Result from Last 3 Months or Most Recently Relevant to Health Maintenance Insurance MEDICARE [facility] [address] [place] [address] Advance Directives Documents on File Type Date 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 Do not modify or discontinue any currently active code status orders. Healthcare Agents on File Name Relationship Healthcare Agent Relationship Communication D Lacy Tavarez Spouse Health Care Agent Care Teams Substance Addiction Coordinator Relationship Specialty Start Date End Date Birdie Dwyer MD [address] [place], [place] [address] [phone] PCP - General Internal Medicine 01/29/25
--- OUTSIDE RECORDS SUMMARY | 2025-06-12 01:11 | XMS_ITS | Encounter Summary ---
Author Organization [facility] Address [address] [place] [address] Care Team Providers Care Sales Recruiting Coordinator Name Role Phone Birdie Dwyer MD Primary Care Provider Encounter Details Date Type Department Care Team (Late st Contact Info) Description 03/19/2025 Lab Requisition [facility] - Main Lab [address] [facility] [place] [address] Rajinder Vidal MD [address] [place] [address] 204 [facility] [phone] Weakness Social History Tobacco Use [...] for your loved ones. For example, child psychologist or elderly care for an older [...] PM EST [facility] [address] [place] [address] John Paul Leyva NP [address] [place] [address] 06/27/2025 3:15 PM EST Office Visit Internal Medicine - [facility] [place] [phone] Uzma Masters, FELIX [address] [place], [place] 10/10/2025 2:00 PM EDT Office Visit Internal Medicine - [facility] [address] [place], [place] [phone] Birdie Dwyer MD [address] [place], [place] documented as of this encounter Procedures Procedure Name Priority Date/Time Associated Diagnosis Comments COMPLETE BLOOD COUNT Routine 03/20/2025 8:10 AM EDT Weakness BASIC METABOLIC PANEL Routine 03/20/2025 8:10 AM EDT Weakness documented in this encounter Results * (ABNORMAL) Basic metabolic panel (03/20/2025 8:10 AM EDT) Sodium 142 133 - 145 mmol/L LAB CHEMISTRY METHOD 03/20/2025 12:05 PM [facility] Potassium 3.8 3.5 - 5.5 mmol/L LAB CHEMISTRY METHOD 03/20/2025 12:05 PM [facility] Chloride 109 96 - 110 mmol/L LAB CHEMISTRY METHOD 03/20/2025 12:05 PM [facility] CO2 26 21 - 32 mmol/L LAB CHEMISTRY METHOD 03/20/2025 12:05 PM [facility] Anion Gap 7 3 - 11 LAB CHEMISTRY METHOD 03/20/2025 12:05 PM [facility] Glucose 81 70 - 100 mg/dL LAB CHEMISTRY METHOD 03/20/2025 12:05 PM [facility] BUN 9 5 - 25 mg/dL LAB CHEMISTRY METHOD 03/20/2025 12:05 PM [facility] Creatinine 0.72 0.70 - 1.30 mg/dL LAB CHEMISTRY METHOD 03/20/2025 12:05 PM EDT [facility] eGFR 96 >=60 mL/min/1. 73m2 LAB CHEMISTRY METHOD 03/20/2025 12:05 PM EDT [facility] Comment:Calculation based on the Chronic Kidney Disease Epidemiology Collaboration (CKD-EPI) equation refit without adjustment for race. BUN/Creatinine Ratio 12.5 LAB CHEMISTRY METHOD 03/20/2025 12:05 PM EDT [facility] Calcium 8.2(L) 8.5 - 10.5 mg/dL LAB CHEMISTRY METHOD 03/20/2025 12:05 PM EDT [facility] Blood Venous blood specimen / Unknown Venipuncture / Unknown 03/20/2025 8:10 AM EDT 03/20/2025 10:19 AM EDT us Rajinder Vidal MD LAB BLOOD ORDERABLES Final Resul t [facility] [address] [place] [address], * (ABNORMAL) Complete blood count (03/20/2025 8:10 AM EDT) WBC 6.4 4.8 - 10.8 K/mcL LAB HEMETOLOGY METHOD 03/20/2025 11:39 AM EDT [facility] RBC 3.40(L) 4.50 - 5.50 M/mcL LAB HEMETOLOGY METHOD 03/20/2025 11:39 AM EDT [facility] Hemoglobin 10.0(L) 13.5 - 17.5 g/dL LAB HEMETOLOGY METHOD 03/20/2025 11:39 AM [facility] Hematocrit 31.1(L) 42.0 - 54.0 % LAB HEMETOLOGY METHOD 03/20/2025 11:39 AM [facility] MCV 90.4 79.0 - 98.0 FL LAB HEMETOLOGY METHOD 03/20/2025 11:39 AM [facility] MCH 29.1 27.0 - 32.0 pcg LAB HEMETOLOGY METHOD 03/20/2025 11:39 AM [facility] MCHC 32.2 32.0 - 37.0 g/dL LAB HEMETOLOGY METHOD 03/20/2025 11:39 AM [facility] RDW 16.5(H) 11.0 - 15.0 % LAB HEMETOLOGY METHOD 03/20/2025 11:39 AM [facility] Platelets 153 130 - 400 K/mcL LAB HEMETOLOGY METHOD 03/20/2025 11:39 AM [facility] MPV 11.8(H) 7.0 - 11.0 FL LAB HEMETOLOGY METHOD 03/20/2025 11:39 AM [facility] NRBC 0.0 <1.0 % LAB HEMETOLOGY METHOD 03/20/2025 11:39 AM [facility] NRBC Absolute 0.00 <0.10 K/mcL LAB HEMETOLOGY METHOD 03/20/2025 11:39 AM [facility] Blood Venous blood specimen / Unknown Venipuncture / Unknown 03/20/2025 8:10 AM EDT 03/20/2025 10:19 AM EDT us Rajinder Vidal MD LAB BLOOD ORDERABLES Final Resul t [facility] [address] [place] [address], documented in this encounter Visit Diagnoses Diagnosis Weakness Other malaise and fatigue documented in this encounter Additional Health Concerns Infection Onset Date Last Indicated Resolved Time Respiratory Rule-Out 04/30/2025 04/30/202504/30/2 025 4:03 PM EDT COVID-19 Rule-Out 04/30/2025 04/30/2025 04/30/2025 4:03 PM EDT Assessment Noted Time PHQ-9 Depression Total Score: 0 11/11/19 3:32 PM EDT documented as of this encounter Care Teams Sales Recruiting Coordinator Relationship Specialty Start Date End Date Birdie Dwyer MD [address] [place] [phone] PCP - General Internal Medicine 01/29/25 documented as of this encounter
--- OUTSIDE RECORDS SUMMARY | 2025-06-12 01:11 | XMS_ITS | Continuity of Care Document ---
Author Organization [facility] [address] [place] [address] Phone [phone] Care Team Providers Care Flight Attendant/Inflight Manager Name Role Phone Juve Queen M.D. Care Team Information Kennel Hand [phone] Problems Active Problems Provider Date Essential hypertension Daniel Chavez M.D. O nset: 08/28/2024 Hypercholesterolemia Daniel Chavez M.D. Ons et: 08/28/2024 Osteitis deformans Daniel Chavez M.D. Onset : 08/28/2024 Social History Type Date Description Comments Sex Male Sex Unknown Medications Active Medications SIG Qnty Indications Ordering Provider Date Fluoxetine [id number] Capsules Take 3 Capsules By Mouth Daily Juve Queen M.D. Allergy Vpfnph574py Tablets Take 1 Tablet By Mouth Daily Juve Queen M.D. Hzradmolx94gz Tablets Juve Ferguson M.D. Ketoconazole2% Cream Apply Topically To The Affected Area Twice Daily Unknown Kwnmcrxfsky5il Tablets Take 1 Tablet By Mouth Every Day PARVEEN Cheung Rlqcziq971(65Fe) mg Tablets Take 1 Tablet By Mouth Daily Juve Queen M.D. Pclfuywzsy77cj Capsules DR Take 1 Capsule By Mouth Daily Unknown Albuterol Sulfate TBD319(90Base) mcg/Act Aerosol Inhale 2 Puffs Into The Lungs Every 6 Hours as Needed For Cough Or Wheezing Unknown Folic Ctbz1zz Tablets Take 1 Tablet By Mouth Daily Juve Queen M.D. Amlodipine Besylate2.5mg Tablets Juve Urias M.D. Rqnqpwudzu722cw Tablets Take 2 Tablets By Mouth Twice Daily Juve Queen M.D. Atorvastatin Govufnz79mg Tablets Take 1 Tablet By Mouth Daily Juve Queen M.D. Amlodipine Wsqujkxq2aa Tablets Take 1 Tablet By Mouth Every Day. Take With 2.5MG For Total Daily Dose 7.5MG Unknown Valacyclovir XGW133rh Tablets Take 1 Tablet By Mouth Daily [...] N ote Alkaline Phosphatase QN Ser/PL 09/21/[address] [address] Alkaline Phosphatase QN Ser/PL <pending> Calcium Ser/Plasma Mass/Vol 09/21/[address] [address] Calcium Ser/Plasma Mass/Vol <pending> Vitamin D 25-Hydroxy D2+D3 S/P 09/21/[address] [address] Vitamin D 25-Hydroxy D2+D3 S/P <pending> Albumin Serum/Plasma 09/21/[address] [id number] Albumin Serum/Plasma <pending> PTH Intact Ser/Plas Mass/Vol 09/21/[address] [address] PTH Intact Ser/Plas Mass/Vol <pending> Phosphorous QN Ser/Plas Mass/V 09/21/[address] [address] Phosphorous QN Ser/Plas Mass/V <pending> Medical Devices [...] jack M.D. Plan of Treatment Future Appointment(s):* 08/01/2025 2:15 pm - Daniel Chavez M.D. at Main [...]
--- OUTSIDE RECORDS SUMMARY | 2025-06-12 01:11 | XMS_ITS | Encounter Summary ---
Author Organization [facility] Address [address] [place] [address] Care Team Providers Care Foreign Banknote Teller Name Role Phone Birdie Dwyer MD Primary Care Provider [phone] Reason for Visit * Reason Onset Date Comments vna call 05/30/2025 Encounter Details Date Type Department Care Team (Late st Contact Info) Description 05/30/2025 Telephone Internal Medicine - [facility] [address] [place], [place] [phone] Birdie Dwyer MD [address] [place], [place] Social History Tobacco Use Types Packs/Day Years [...] for your loved ones. For example, child abuse worker or elderly care for an older adult? [...] on file documented as of this encounter Progress Notes * Parrish [place] NP - 05/30/2025 4:05 PM EST The patient was supposed to schedule a follow-up appointment in two weeks. Please book the earliestavailable appointment. He should continue monitoring his blood pressure, keep a log of the readings, and bring the log to the appointment. * Dana Gutierrez RN - 05/30/2025 2:04 PM EST Spoke with Octavio PARADA c/o patient's blood pressure elevated 158/78. Denies edema in feet or legs that has resolved . Medication decreased last office visit . Please review and advise thank you * Song Chawla - 05/30/2025 1:31 PM EST [facility] CALL [facility] name of caller: Izabella The caller is A nurse Is the caller at the patients home?: no Reason for call: Reporting elevated BP after meds 158/78 Does caller need an urgent call back? no Was CONTACT Telephone # obtained above?: yes Fax #: documented in this encounter Plan of Treatment Upcoming Encounters Date Type Department Care Team (Late st Contact Info) Description 06/18/2025 3:00 PM EST [facility] [address] [place] [address] John Paul Leyva NP [address] [place], [place] 06/27/2025 3:15 PM EST [facility] [address] [place] [address] Uzma Masters NP [address] [place], [place] 10/10/2025 2:00 PM EDT [facility] [address] [phone] Birdie Dwyer MD [address] [place] [address] documented as of this encounter Visit Diagnoses Not on filedocumented in this encounter Additional Health Concerns Assessment Noted Time PHQ-9 Depression Total Score: 0 11/11/19 3:32 PM EDT documented as of this encounter Care Teams Foreign Banknote Teller Relationship Specialty Start Date End Date Birdie Dwyer MD [address] [place] [address] PCP - General Internal Medicine 01/29/25 documented as of this encounter
--- OUTSIDE RECORDS SUMMARY | 2025-06-12 01:11 | XMS_ITS | Clinical Summary ---
Author Organization [facility] Prior to 12/02/24 Address [address] [place] [address] Care Team Providers Care Stabilizing Machine Operator Name Role Phone Juve Queen MD Primary Care Provider [phone] Allergies No known active allergies Medications Medication [...] age to complete this topic Care Teams Stabilizing Machine Operator Relationship Specialty Start Date End Date Juve Queen MD [address] [place] [id number] PCP - General Internal Medicine 05/30/19
--- OUTSIDE RECORDS SUMMARY | 2025-06-12 01:11 | XMS_ITS | Encounter Summary ---
Author Organization [facility] Address [address] [place] [address] Care Team Providers Care Racing Car Driver Name Role Phone Birdie Dwyer MD Primary Care Provider [phone] Encounter Details Date Type Department Care Team (Late st Contact Info) Description 03/12/2025 Lab Requisition [facility] - Main Lab [address] [facility] [place] [address] Rajinder Vidal MD [address] [place] [address] 204 [facility] [address] Weakness Social History Tobacco Use Types [...] for your loved ones. For example, child adolescent psychiatrist or elderly care for an older adult? [...] PM EST [facility] [address] [facility] [place] [address] John Paul Leyva NP [address] [place] [address] 06/27/2025 3:15 PM EST Office Visit Internal Medicine - [facility] [place] [phone] Uzma Masters, FELIX [address] [place], [place] 10/10/2025 2:00 PM EDT Office Visit Internal Medicine - [facility] [address] [place], [place] [phone] Birdie Dwyer MD [address] [place], [place] documented as of this encounter Procedures Procedure Name Priority Date/Time Associated Diagnosis Comments COMPLETE BLOOD COUNT Routine 03/13/2025 6:28 AM EDT Weakness BASIC METABOLIC PANEL Routine 03/13/2025 6:28 AM EDT Weakness documented in this encounter Results * Basic metabolic panel (03/13/2025 6:28 AM EDT) Sodium 140 133 - 145 mmol/L LAB CHEMISTRY METHOD 03/13/2025 10:15 AM [facility] Potassium 4.2 3.5 - 5.5 mmol/L LAB CHEMISTRY METHOD 03/13/2025 10:15 AM [facility] Chloride 108 96 - 110 mmol/L LAB CHEMISTRY METHOD 03/13/2025 10:15 AM [facility] CO2 27 21 - 32 mmol/L LAB CHEMISTRY METHOD 03/13/2025 10:15 AM [facility] Anion Gap 5 3 - 11 LAB CHEMISTRY METHOD 03/13/2025 10:15 AM [facility] Glucose 73 70 - 100 mg/dL LAB CHEMISTRY METHOD 03/13/2025 10:15 AM [facility] BUN 11 5 - 25 mg/dL LAB CHEMISTRY METHOD 03/13/2025 10:15 AM [facility] Creatinine 0.72 0.70 - 1.30 mg/dL LAB CHEMISTRY METHOD 03/13/2025 10:15 AM EDT [facility] eGFR 96 >=60 mL/min/1. 73m2 LAB CHEMISTRY METHOD 03/13/2025 10:15 AM T [facility] Comment:Calculation based on the Chronic Kidney Disease Epidemiology Collaboration (CKD-EPI) equation refit without adjustment for race. BUN/Creatinine Ratio 15.3 LAB CHEMISTRY METHOD 03/13/2025 10:15 AM T [facility] Calcium 8.5 8.5 - 10.5 mg/dL LAB CHEMISTRY METHOD 03/13/2025 10:15 AM [facility] Blood Venous blood specimen / Unknown Venipuncture / Unknown 03/13/2025 6:28 AM EDT 03/13/2025 8:35 AM EDT us Rajinder Vidal MD LAB BLOOD ORDERABLES Final Resul t [facility] [address] [place] [address], * (ABNORMAL) Complete blood count (03/13/2025 6:28 AM EDT) WBC 7.0 4.8 - 10.8 K/mcL LAB HEMETOLOGY METHOD 03/13/2025 9:42 AM [facility] RBC 3.50(L) 4.50 - 5.50 M/mcL LAB HEMETOLOGY METHOD 03/13/2025 9:42 AM [facility] Hemoglobin 10.2(L) 13.5 - 17.5 g/dL LAB HEMETOLOGY METHOD 03/13/2025 9:42 AM [facility] Hematocrit 31.7(L) 42.0 - 54.0 % LAB HEMETOLOGY METHOD 03/13/2025 9:42 AM EDT [facility] MCV 90.6 79.0 - 98.0 FL LAB HEMETOLOGY METHOD 03/13/2025 9:42 AM EDT [facility] MCH 29.1 27.0 - 32.0 pcg LAB HEMETOLOGY METHOD 03/13/2025 9:42 AM EDT [facility] MCHC 32.2 32.0 - 37.0 g/dL LAB HEMETOLOGY METHOD 03/13/2025 9:42 AM EDT [facility] RDW 15.8(H) 11.0 - 15.0 % LAB HEMETOLOGY METHOD 03/13/2025 9:42 AM EDT [facility] Platelets 212 130 - 400 K/mcL LAB HEMETOLOGY METHOD 03/13/2025 9:42 AM EDT [facility] MPV 11.3(H) 7.0 - 11.0 FL LAB HEMETOLOGY METHOD 03/13/2025 9:42 AM EDT [facility] NRBC 0.0 <1.0 % LAB HEMETOLOGY METHOD 03/13/2025 9:42 AM EDT [facility] NRBC Absolute 0.00 <0.10 K/mcL LAB HEMETOLOGY METHOD 03/13/2025 9:42 AM EDT [facility] Blood Venous blood specimen / Unknown Venipuncture / Unknown 03/13/2025 6:28 AM EDT 03/13/2025 8:35 AM EDT us Rajinder Vidal MD LAB BLOOD ORDERABLES Final Resul t [facility] [address] [place] [address], documented in this encounter Visit Diagnoses Diagnosis Weakness Other malaise and fatigue documented in this encounter Additional Health Concerns Infection Onset Date Last Indicated Resolved Time Respiratory Rule-Out 04/30/2025 04/30/2025 025 4:03 PM EDT COVID-19 Rule-Out 04/30/2025 04/30/2025 04/30/2025 4:03 PM EDT Assessment Noted Time PHQ-9 Depression Total Score: 0 11/11/19 3:32 PM EDT documented as of this encounter Care Teams Racing Car Driver Relationship Specialty Start Date End Date Birdie Dwyer MD [address] [place] [address] PCP - General Internal Medicine 01/29/25 documented as of this encounter
--- OUTSIDE RECORDS SUMMARY | 2025-06-12 01:11 | XMS_ITS | Clinical Summary ---
Author Organization [facility] Address [address] [place] [address] Care Team Providers Care Education Paraprofessional Name Role Phone [facility]: Primary Care Provider Allergies No [...] Health Maintenance Due Date Last Done Comments Advance Care Planning 1950 Hepatitis C Virus Screening 1950 DTaP/Tdap/Td Vaccines (1 - Tdap) 1969 Colonoscopy 10/12/1995 Pneumococcal Vaccines 50+ (1 of 1 - PCV) 2000 Zoster (Shingles) Vaccine (1 of 2) 2000 Influenza Vaccine 02/02/2025 COVID-19 Vaccine (2 - 2024-2 6 season) 2025 09/13/2020 RSV Vaccine 50 years and old er and Patients (1 - 1-dose 75+ series) 2025 Hepatitis B Vaccines Aged Out No long er eligible based on patient's age to complete this topic Insurance MEDICARE PART A & B Care Teams Education Paraprofessional Relationship Specialty Start Date End Date [facility]: [address] [facility] [place] [address] PCP - General 09/08/21
== END 2025-06-11 16:14 | disposition home or self-care (01) ==
PROVIDERS: PCP Internal Medicine; Referring Provider Nurse Practitioner Primary Care; Visit Provider Nurse Practitioner Family
DX: M54.50 Low back pain, unspecified (principal); G89.29 Other chronic pain; M47.817 Spondylosis without myelopathy or radiculopathy, lumbosacral region; M51.369 Other intervertebral disc degeneration, lumbar region without mention of lumbar back pain or lower extremity pain; M25.512 Pain in left shoulder; M19.012 Primary osteoarthritis, left shoulder
CPT/HCPCS: 99204

== ENCOUNTER 2025-06-11 15:34 | Outpatient (REF) | payer MEDICARE, OTHER, SELFPAY ==
--- NOTE | ~2025-06-11 | XR_ITS ---
Exam: CR Xr Shoulder Hoang Min 2v TECHNIQUE: AP external rotation, Grashey, Y, and axillary view, bilateral shoulders INDICATION: Bilateral shoulder pain Prior: None FINDINGS: LEFT SHOULDER: Mild degenerative irregularity is seen across the greater tuberosity. Marginal osteophytes are visible along the glenoid. Focal calcification projects cephalad to the humeral head, possibly chondrocalcinosis versus central osteophyte. There is marginal osteophyte involving superior lateral humeral head. AC joint is intact. It appears narrowed with small marginal osteophytes. Glenohumeral joint is intact. RIGHT SHOULDER: There are 5 anchors in the lateral anatomic neck of humerus consistent with prior rotator cuff repair. There is degenerative irregularity of the greater tuberosity. There are moderate marginal osteophytes involving humeral head and glenoid. There is mild elevation of the humeral head with narrowing of the subacromial space. There is a small ossification superior lateral humeral head and superior medial to the humeral head. There are mild degenerative changes of the AC joint which is otherwise intact. XR/XR Shoulder Hoang min 2V IMPRESSION: LEFT SHOULDER: Mild degenerative changes of the glenohumeral and AC joints. RIGHT SHOULDER: The anchors from prior rotator cuff repair. There is narrowing of the subacromial space raising question of underlying rotator cuff retear. Moderate degenerative changes are present in the glenoid humeral joint and mild degenerative changes are present in the AC joint. 1-2 possible intra-articular ossified bodies in the superior glenohumeral joint. Electronically signed by: Jorge Echevarria MD 06/11/2025 05:26 PM [facility]
--- NOTE | ~2025-06-11 | XR_ITS ---
EXAMINATION: XR LUMBOSACRAL SPINE CLINICAL INFORMATION: M54.50 - Low back pain, unspecified COMPARISON: None available. TECHNIQUE: AP, bilateral oblique, lateral spot, and lateral: Flexion, neutral, and extension view x-rays of the lumbar spine. FINDINGS: There are 5 non-rib bearing lumbar segments. T12-L1: There is mild disc space narrowing and calcification in the anterior disc annulus L1-L2: There is mild disc space narrowing and calcification of the anterior disc annulus and anterior osteophytes. There is endplate sclerosis. L2-L3: There is mild to moderate disc space narrowing with endplate sclerosis and osteophytes. L3-L4: There is mild to moderate disc space narrowing with subtle retrolisthesis. There is endplate sclerosis and osteophytes. On the oblique view, there is possible pars intra-articular's defect on the right. L4-L5: There is moderate to severe disc space narrowing with endplate sclerosis and osteophyte. There is grade 1 anterolisthesis. There is facet arthropathy. L5-S1: There is moderate disc space narrowing with endplate sclerosis and osteophytes. There is also facet sclerosis. 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 There is no evidence of instability during flexion and extension Electronically signed by: Jorge Echevarria MD 06/11/2025 05:[address] [facility]
--- OUTSIDE RECORDS SUMMARY | 2025-07-26 19:00 | XMS_ITS | Clinical Summary ---
Author Organization Unknown Care Team Providers Care Safety And Skill Based Pay Manager Name Role Phone CONCEPCION POOLE, CHARLIE Unavailable Unavailable JESUS INVESTMENT FUND MANAGER, JOYCELYN Unavailable Unavailable XOCHILT PT, THEE Unavailable Unavailable LENGIEZA OT, BRAYAN Unavailable Unavailable SHABNAM PROCESS CONTROL TECHNICIAN, ERNESTINA Unavailable Unavailable CONDINO ERICA/CARVER, BRANDON Unavailable Unav navidable RN, GRZEGORZ Unavailable Unavailable Payers Payer Name Policy Type Policy Number Effective Date Expira tion Date MEDICARE.NGS.PDGM [id number] Problems Condition Name Condition Details Condition Category Status Onset Date Resolution Date Last Treatment Date Treating Clinician Comments 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, 7THD Active 02-23 00:00: 00 STRAIN OF MUSC/TEND AT LOWER LEG LEVEL, LEFT LEG, SUBS Active 02-23 00:00: 00 STRAIN OF RIGHT QUADRICEPS MUSCLE, FASCIA AND TENDON, SUBS Active 02-23 00:00: 00 ACUTE CYSTITIS WITH HEMATURIA Active 2024-07 00:00: 00 UNSP ESCHERICHIA COLI THE CAUSE OF DISEASES CLASSD ELSWHR Active 2024-07 00:00: 00 ESSENTIAL (PRIMARY) HYPERTENSION Active 02-26 00:00: 00 POLYNEUROPAT HY, UNSPECIFIED Active 02-23 00:00: 00 SPINAL STENOSIS, 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 Active 07-05 00:00: 00 ANEMIA, UNSPECIFIED Active 02-23 00:00: 00 BEHCET'S DISEASE Active 07-05 00:00: 00 INSOMNIA, UNSPECIFIED Active 02-23 00:00: 00 OVERACTIVE BLADDER Active 02-23 00:00: 00 CONSTIPATION , UNSPECIFIED Active 02-23 00:00: 00 DIZZINESS AND GIDDINESS Active 02-23 00:00: 00 TREMOR, UNSPECIFIED Active 02-23 00:00: 00 ATHSCL HEART DISEASE OF [place] CORONARY ARTERY W/O ANG PCTRS Active 07-05 00:00: 00 DEPRESSION, UNSPECIFIED Active 07-05 00:00: 00 BENIGN PROSTATIC HYPERPLASIA WITHOUT LOWER URINRY TRACT SYMP Active 07-05 00:00: 00 HYPERLIPIDEM IA, UNSPECIFIED Active 07-05 00:00: 00 GASTRO-ESOPH AGEAL REFLUX DISEASE WITHOUT ESOPHAGITIS Active 07-05 00:00: 00 HISTORY OF FALLING Active 03-29 00:00: 00 Allergies, Adverse Reactions, Alerts Allergy Name Allergy Type Status Severity Reaction(s) Onset Date Inactive Date Treating Clinician Comments NO KNOWN ALLERGIES Propensity to adverse reactions Active 03-30 09:51: 29 Medications Ordered Medication Name Filled Medication Name Start Date Stop Date Current Medication? Ordering Clinician Indication Dosage Frequency Signature (SIG) Comments Components amlodipine 10 mg tablet 03-28 00:00: 00 05-25 23:59 :00 No [id number] HTN 1 tablet DAILY 1 tablet DAILY (route: oral) Med Classific ation: Cardiovas cular Therapy Agents acetaminoph en 500 mg tablet 03-30 00:00: 00 Yes [id number] PAIN 2 tablet 3 TIMES DAILY 2 tablet 3 TIMES DAILY (route: oral) Med Classific ation: Analgesic , Anti-infl ammatory or Antipyret ic albuterol sulfate HFA 90 mcg/actuati on aerosol inhaler 03-30 00:00: 00 Yes [id number] SOB 2 puff EVERY 4 HOURS 2 puff EVERY 4 HOURS (route: inhalation ) Med Classific ation: Respirato ry Therapy Agents aspirin 81 mg tablet 03-30 00:00: 00 Yes [id number] HEART HEALTH 1 tablet DAILY 1 tablet DAILY (route: oral) Med Classific ation: Hematolog ical Agents atorvastati n 80 mg tablet 03-30 00:00: 00 Yes [id number] CHOLESTEROL 1 tablet DAILY 1 tablet DAILY (route: oral) Med Classific ation: Cardiovas cular Therapy Agents finasteride 5 mg tablet 03-30 00:00: 00 Yes [id number] BPH 1 tablet DAILY 1 tablet DAILY (route: oral) Med Classific ation: Genitouri nary Therapy fluoxetine 40 mg capsule 03-30 00:00: 00 06-07 23:59 :00 No [id number] DEPRESSION 1 capsule DAILY 1 capsule DAILY (route: oral) Med Classific ation: Central Nervous System Agents loratadine 10 mg capsule 03-30 00:00: 00 Yes [id number] ALLERGIES 1 capsule DAILY 1 capsule DAILY (route: oral) Med Classific ation: Respirato ry Therapy Agents meclizine 25 mg tablet 03-30 00:00: 00 Yes [id number] VERTIGO 1 tablet DAILY 1 tablet DAILY (route: oral) Med Classific ation: Gastroint estinal Therapy Agents melatonin 3 mg tablet 03-30 00:00: 00 Yes [id number] SLEEP 1 tablet DAILY 1 tablet DAILY (route: oral) Med Classific ation: Central Nervous System Agents Multivitami n 50 Plus tablet 03-30 00:00: 00 Yes [id number] SUPPLEMENT 1 tablet DAILY 1 tablet DAILY (route: oral) Med Classific ation: Electroly te Balance-N utritiona l Products oxybutynin chloride ER 10 mg tablet,exte nded release 24 hr 03-30 00:00: 00 Yes [id number] OVERACTIVE BLADDER 1 tablet DAILY 1 tablet DAILY (route: oral) Med Classific ation: Genitouri nary Therapy primidone 50 mg tablet 03-30 00:00: 00 Yes [id number] ESSENTIAL TREMOR 1 tablet 2 TIMES DAILY 1 tablet 2 TIMES DAILY (route: oral) Med Classific ation: Central Nervous System Agents Senna Laxative 8.6 mg tablet 03-30 00:00: 00 Yes [id number] LAXATIVE 2 tablet DAILY 2 tablet DAILY (route: oral) Med Classific ation: Gastroint estinal Therapy Agents valacyclovi r 1 gram tablet 03-30 00:00: 00 05-25 23:59 :00 No [id number] VIRUS 1 tablet 3 TIMES DAILY 1 tablet 3 TIMES DAILY (route: oral) Med Classific ation: Anti-Infe ctive Agents ezetimibe 10 mg tablet 2024-07 00:00: 00 Yes [id number] HYPERCHOLES TEROLEMIA 1 tablet DAILY 1 tablet DAILY (route: oral) Med Classific ation: Cardiovas cular Therapy Agents folic acid 1 mg tablet 2024-07 0 00:00: 00 Yes [id number] SUPPLEMENT 1 tablet DAILY 1 tablet DAILY (route: oral) Med Classific ation: Electroly te Balance-N utritiona l Products gabapentin 600 mg tablet 2024-07 0 00:00: 00 Yes [id number] NERVE PAIN 2 tablet 2 TIMES DAILY 2 tablet 2 TIMES DAILY (route: oral) Med Classific ation: Central Nervous System Agents omeprazole 40 mg capsule,del ayed release 2024-07 0 00:00: 00 Yes [id number] GERD 1 capsule DAILY 1 capsule DAILY (route: oral) Med Classific ation: Gastroint estinal Therapy Agents Vitamin C 250 mg tablet 2024-07 00:00: 00 Yes [id number] SUPPLEMENT 1 tablet DAILY 1 tablet DAILY (route: oral) Med Classific ation: Electroly te Balance-N utritiona l Products Vitamin D3 50 mcg (2,000 unit) tablet 2024-07 00:00: 00 Yes [id number] SUPPLEMENT 1 tablet DAILY 1 tablet DAILY (route: oral) Med Classific ation: Electroly te Balance-N utritiona l Products oxycodone 5 mg tablet 2024-07 0 00:00: 00 Yes [id number] PAIN 1-2 tablet EVERY 4 HOURS 1-2 tablet EVERY 4 HOURS (route: oral) Med Classific ation: Analgesic , Anti-infl ammatory or Antipyret ic cefpodoxime 200 mg tablet 2024-07 00:00: 00 05-25 23:59 :00 No [id number] UTI 1 tablet 2 TIMES DAILY 1 tablet 2 TIMES DAILY (route: oral) Med Classific ation: Anti-Infe ctive Agents famotidine 20 mg tablet 2024-07 00:00: 00 Yes [id number] HEARTBURN 1 tablet DAILY 1 tablet DAILY (route: oral) Med Classific ation: Gastroint estinal Therapy Agents amlodipine 5 mg tablet 2024-07 00:00: 00 Yes [id number] HTN 1 tablet DAILY 1 tablet DAILY (route: oral) Med Classific ation: Cardiovas cular Therapy Agents Valtrex 1 gram tablet 2024-07 00:00: 00 Yes [id number] ANTIVIRAL 1 tablet DAILY 1 tablet DAILY (route: oral) Med Classific ation: Anti-Infe ctive Agents ferrous sulfate 325 mg (65 mg iron) tablet 2024-07 00:00: 00 Yes [id number] ANEMIA 1 tablet DAILY 1 tablet DAILY (route: oral) Med Classific ation: Electroly te Balance-N utritiona l Products fluoxetine 20 mg capsule 2024-07 00:00: 00 Yes [id number] DEPRESSION 3 capsule DAILY 3 capsule DAILY (route: oral) Med Classific ation: Central Nervous System Agents Vital Signs Vital Name Observation Time Observation Value Commen ts Temperature 2025-06-08 12:37:00.000 98.2 [degF] Temperature 2025-06-07 13:09:00.000 97.6 [degF] Temperature 2025-05-30 13:01:00.000 98.4 [degF] Temperature 2025-05-29 12:26:00.000 97.5 [degF] Pulse 2025-06-08 12:37:00.000 73 /min Pulse 2025-06-07 13:09:00.000 69 /min Pulse 2025-05-30 13:01:00.000 76 /min Pulse 2025-05-29 12:26:00.000 73 /min O2 Saturation (%) 2025-06-07 13:13:00.000 98 % O2 Saturation (%) 2025-05-30 13:01:00.000 96 % O2 Saturation (%) 2025-05-29 12:26:00.000 96 % Respirations 2025-06-08 12:37:00.000 18 /min Respirations 2025-06-07 13:09:00.000 18 /min Respirations 2025-05-30 13:01:00.000 18 /min Respirations 2025-05-29 12:26:00.000 18 /min Systolic Blood Pressure 2025-06-08 12:37:00.000 148 mm [Hg] Systolic Blood Pressure 2025-06-07 13:09:00.000 138 mm [Hg] Systolic Blood Pressure 2025-05-30 13:01:00.000 158 mm [Hg] Systolic Blood Pressure 2025-05-29 12:26:00.000 138 mm [Hg] Diastolic Blood Pressure 2025-06-08 12:37:00.000 62 mm [Hg] Diastolic Blood Pressure 2025-06-07 13:09:00.000 64 mm [Hg] Diastolic Blood Pressure 2025-05-30 13:01:00.000 78 mm [Hg] Diastolic Blood Pressure 2025-05-29 12:26:00.000 72 mm [Hg] Plan of Treatment Planned Activity Planned Date Details Comments Future Scheduled Test RN TO OBSE RVE, ASSESS, EVALUATE, AND DEVELOP AN INDIVIDUALIZED PLAN OF CARE. AGENCY MAY ACCEPT ORDERS FROM CONSULTING PHYSICIANS. RN TO OBSERVE AND ASSESS, PROCESS CONTROL TECHNICIAN/TALENT ACQUISITION ADMINISTRATOR TO OBSERVE FOR RISK FOR FALLS AND INSTRUCT IN FALL PREVENTION, HOME SAFETY, MEDICATION MANAGEMENT, INFECTION PREVENTION, AND NUTRITION MANAGEMENT. RN/PROCESS CONTROL TECHNICIAN/TALENT ACQUISITION ADMINISTRATOR NURSE MAY PERFORM O2 SATURATION LEVEL ON ADMISSION AND PRN FOR RN TO ASSESS/PROCESS CONTROL TECHNICIAN TO OBSERVE PATIENT, WITH NOTIFICATION TO THE PHYSICIAN IF SATURATION IS 90% IN THE ABSENCE OF MORE SPECIFIC PARAMETERS FROM THE PHYSICIAN. AGENCY MAY PERFORM A RESUMPTION OF CARE VISIT FOLLOWING ANY HOSPITAL ADMISSION. RN/PROCESS CONTROL TECHNICIAN/TALENT ACQUISITION ADMINISTRATOR TO MONITOR CO-MORBID CONDITIONS LISTED ON THE PLAN OF CARE AND ANY NEW CONDITIONS THAT PRESENT THEMSELVES DURING THIS EPISODE TO IDENTIFY CHANGES AND INTERVENE TO MINIMIZE COMPLICATIONS. [code = RN TO OBSERVE, ASSESS, EVALUATE, AND DEVELOP AN INDIVIDUALIZED PLAN OF CARE. AGENCY MAY ACCEPT ORDERS FROM CONSULTING PHYSICIANS. RN TO OBSERVE AND ASSESS, PROCESS CONTROL TECHNICIAN/TALENT ACQUISITION ADMINISTRATOR TO OBSERVE FOR RISK FOR FALLS AND INSTRUCT IN FALL PREVENTION, HOME SAFETY, MEDICATION MANAGEMENT, INFECTION PREVENTION, AND NUTRITION MANAGEMENT. RN/PROCESS CONTROL TECHNICIAN/TALENT ACQUISITION ADMINISTRATOR NURSE MAY PERFORM O2 SATURATION LEVEL ON ADMISSION AND PRN FOR RN TO ASSESS/PROCESS CONTROL TECHNICIAN TO OBSERVE PATIENT, WITH NOTIFICATION TO THE PHYSICIAN IF SATURATION IS 90% IN THE ABSENCE OF MORE SPECIFIC PARAMETERS FROM THE PHYSICIAN. AGENCY MAY PERFORM A RESUMPTION OF CARE VISIT FOLLOWING ANY HOSPITAL ADMISSION. RN/PROCESS CONTROL TECHNICIAN/TALENT ACQUISITION ADMINISTRATOR TO MONITOR CO-MORBID CONDITIONS LISTED ON THE PLAN OF CARE AND ANY NEW CONDITIONS THAT PRESENT THEMSELVES DURING THIS EPISODE TO IDENTIFY CHANGES AND INTERVENE TO MINIMIZE COMPLICATIONS.] Future Scheduled Test RISK FOR H OSPITALIZATION; RN TO ASSESS/TEACH, TALENT ACQUISITION ADMINISTRATOR/PROCESS CONTROL TECHNICIAN TO OBSERVE/TEACH PATIENT/CAREGIVER ON RISK FOR HOSPITALIZATION/EMERGENCY ROOM VISITS, TEACH SIGNS AND SYMPTOMS THAT PUT PATIENT AT RISK, WHEN TO NOTIFY NURSE/PHYSICIAN OF COMPLICATIONS/DECLINE, AND WHEN TO CALL 911. [code = RISK FOR HOSPITALIZATION; RN TO ASSESS/TEACH, TALENT ACQUISITION ADMINISTRATOR/PROCESS CONTROL TECHNICIAN TO OBSERVE/TEACH PATIENT/CAREGIVER ON RISK FOR HOSPITALIZATION/EMERGENCY ROOM VISITS, TEACH SIGNS AND SYMPTOMS THAT PUT PATIENT AT RISK, WHEN TO NOTIFY NURSE/PHYSICIAN OF COMPLICATIONS/DECLINE, AND WHEN TO CALL 911.] Future Scheduled Test MEDICATION MANAGEMENT; RN/PROCESS CONTROL TECHNICIAN/TALENT ACQUISITION ADMINISTRATOR TO REVIEW MEDICATIONS FOR INTERACTIONS, EFFECTIVENESS OF DRUG THERAPY, AND SIGNS/SYMPTOMS OF ADVERSE REACTIONS. MAY INSTRUCT AND REINFORCE MEDICATION TEACHING RELATED TO THE USE OF MEDICATIONS, DOSAGE, FREQUENCY, PURPOSE, SIDE EFFECTS, AND TO REPORT COMPLICATIONS. [code = MEDICATION MANAGEMENT; RN/PROCESS CONTROL TECHNICIAN/TALENT ACQUISITION ADMINISTRATOR TO REVIEW MEDICATIONS FOR INTERACTIONS, EFFECTIVENESS OF DRUG THERAPY, AND SIGNS/SYMPTOMS OF ADVERSE REACTIONS. MAY INSTRUCT AND REINFORCE MEDICATION TEACHING RELATED TO THE USE OF MEDICATIONS, DOSAGE, FREQUENCY, PURPOSE, SIDE EFFECTS, AND TO REPORT COMPLICATIONS.] Future Scheduled Test CARDIOVASC ULAR SYSTEM; RN TO ASSESS/TEACH, PROCESS CONTROL TECHNICIAN/TALENT ACQUISITION ADMINISTRATOR TO OBSERVE/TEACH RELATED TO ALTERED CARDIOVASCULAR STATUS TO MINIMIZE COMPLICATIONS AND REDUCE HOSPITALIZATION. [code = CARDIOVASCULAR SYSTEM; RN TO ASSESS/TEACH, PROCESS CONTROL TECHNICIAN/TALENT ACQUISITION ADMINISTRATOR TO OBSERVE/TEACH RELATED TO ALTERED CARDIOVASCULAR STATUS TO MINIMIZE COMPLICATIONS AND REDUCE HOSPITALIZATION.] Future Scheduled Test HYPERTENSI ON MANAGEMENT; RN TO ASSESS AND TEACH, PROCESS CONTROL TECHNICIAN/TALENT ACQUISITION ADMINISTRATOR TO OBSERVE AND TEACH WARNING SIGNS AND SYMPTOMS TO AVOID HOSPITALIZATION. [code = HYPERTENSION MANAGEMENT; RN TO ASSESS AND TEACH, PROCESS CONTROL TECHNICIAN/TALENT ACQUISITION ADMINISTRATOR TO OBSERVE AND TEACH WARNING SIGNS AND SYMPTOMS TO AVOID HOSPITALIZATION.] Future Scheduled Test SKIN INTEG RITY RN TO ASSESS AND TEACH, PROCESS CONTROL TECHNICIAN/TALENT ACQUISITION ADMINISTRATOR TO OBSERVE AND TEACH INTEGUMENTARY STATUS TO IDENTIFY CHANGES AND INTERVENE TO MINIMIZE COMPLICATIONS. PROVIDE SKILLED TEACHING OF GENERAL WOUND AND SKIN CARE AND PREVENTION RELATED TO POTENTIAL FOR OR ACTUAL ALTERED SKIN INTEGRITY. [code = SKIN INTEGRITY RN TO ASSESS AND TEACH, PROCESS CONTROL TECHNICIAN/TALENT ACQUISITION ADMINISTRATOR TO OBSERVE AND TEACH INTEGUMENTARY STATUS TO IDENTIFY CHANGES AND INTERVENE TO MINIMIZE COMPLICATIONS. PROVIDE SKILLED TEACHING OF GENERAL WOUND AND SKIN CARE AND PREVENTION RELATED TO POTENTIAL FOR OR ACTUAL ALTERED SKIN INTEGRITY.] Future Scheduled Test PAIN MANAG EMENT; RN TO ASSESS AND TEACH, TALENT ACQUISITION ADMINISTRATOR/PROCESS CONTROL TECHNICIAN TO OBSERVE AND TEACH AND PROVIDE EDUCATION ON PAIN MANAGEMENT TECHNIQUES. [code = PAIN MANAGEMENT; RN TO ASSESS AND TEACH, TALENT ACQUISITION ADMINISTRATOR/PROCESS CONTROL TECHNICIAN TO OBSERVE AND TEACH AND PROVIDE EDUCATION ON PAIN MANAGEMENT TECHNIQUES.] Future Scheduled Test GENITOURIN NILS MANAGEMENT; RN TO ASSESS AND TEACH, PROCESS CONTROL TECHNICIAN/TALENT ACQUISITION ADMINISTRATOR TO OBSERVE AND TEACH RELATED TO ALTERED GENITOURINARY STATUS TO MINIMIZE COMPLICATIONS AND REDUCE HOSPITALIZATION. [code = GENITOURINARY MANAGEMENT; RN TO ASSESS AND TEACH, PROCESS CONTROL TECHNICIAN/TALENT ACQUISITION ADMINISTRATOR TO OBSERVE AND TEACH RELATED TO ALTERED GENITOURINARY STATUS TO MINIMIZE COMPLICATIONS AND REDUCE HOSPITALIZATION.] Future Scheduled Test URINARY TR ACT INFECTION MANAGEMENT; RN/TALENT ACQUISITION ADMINISTRATOR/PROCESS CONTROL TECHNICIAN TO PROVIDE SKILLED TEACHING AND SELF- CARE MANAGEMENT RELATED TO UTI TO MINIMIZE COMPLICATIONS AND REDUCE THE RISK OF HOSPITALIZATION. [code = URINARY TRACT INFECTION MANAGEMENT; RN/TALENT ACQUISITION ADMINISTRATOR/PROCESS CONTROL TECHNICIAN TO PROVIDE SKILLED TEACHING AND SELF- CARE MANAGEMENT RELATED TO UTI TO MINIMIZE COMPLICATIONS AND REDUCE THE RISK OF HOSPITALIZATION.] Future Scheduled Test FALL REDUC TION MANAGEMENT; RN TO ASSESS AND OBSERVE, PROCESS CONTROL TECHNICIAN/TALENT ACQUISITION ADMINISTRATOR TO OBSERVE FALL RISK FACTORS AND EDUCATE PATIENT/CAREGIVER ON STRATEGIES TO MINIMIZE THE RISK OF FALLING. [code = FALL REDUCTION MANAGEMENT; RN TO ASSESS AND OBSERVE, PROCESS CONTROL TECHNICIAN/TALENT ACQUISITION ADMINISTRATOR TO OBSERVE FALL RISK FACTORS AND EDUCATE PATIENT/CAREGIVER ON STRATEGIES TO MINIMIZE THE RISK OF FALLING.] Future Scheduled Test AGENCY MAY PERFORM A RESUMPTION OF CARE VISIT FOLLOWING ANY HOSPITAL ADMISSION. PT TO EVALUATE, OBSERVE / ASSESS, AND MONITOR, INVESTMENT FUND MANAGER TO OBSERVE AND MONITOR, PROVIDE SKILLED THERAPEUTIC INTERVENTION, ACTIVITY, EDUCATION, AND TRAINING TO ADDRESS; PT/INVESTMENT FUND MANAGER TO PROVIDE GAIT TRAINING FOR IMPROVED MOBILITY AND /OR TO NORMALIZE GAIT PATTERN NEUROMUSCULAR RE-EDUCATION / BALANCE / POSTURAL CONTROL (PT) THERAPEUTIC EXERCISES AND ESTABLISHING A HOME EXERCISE PROGRAM (PT/INVESTMENT FUND MANAGER) PT/INVESTMENT FUND MANAGER TO PROVIDE STAIR TRAINING PT TO ASSESS / INVESTMENT FUND MANAGER TO MONITOR FOR AND REPORT EARLY SIGNS OF ANTICOAGULANT TOXICITY TO THE PHYSICIAN AND/OR THE RN CLINICAL STATISTICAL METHODS TEACHER FOR PHYSICIAN NOTIFICATION AND TO PROVIDE PATIENT/CAREGIVER EDUCATION ON ANTICOAGULANT THERAPY PT / INVESTMENT FUND MANAGER TO MONITOR AND EDUCATE ON OXYGEN SATURATION DURING ADLS/IADLS, NOTIFY PHYSICIAN AND/OR THE RN CLINICAL STATISTICAL METHODS TEACHER FOR PHYSICIAN NOTIFICATION AND IF O2 SATS BELOW PHYSICIAN ORDERED PARAMETERS AFTER 10 MIN OF REST PT / INVESTMENT FUND MANAGER MAY EDUCATE ON PAIN MANAGEMENT CLINICALLY INDICATED, INCLUDING NON-PHARMACOLOGICAL PAIN REDUCTION TECHNIQUES. [code = AGENCY MAY PERFORM A RESUMPTION OF CARE VISIT FOLLOWING ANY HOSPITAL ADMISSION. PT TO EVALUATE, OBSERVE / ASSESS, AND MONITOR, INVESTMENT FUND MANAGER TO OBSERVE AND MONITOR, PROVIDE SKILLED THERAPEUTIC INTERVENTION, ACTIVITY, EDUCATION, AND TRAINING TO ADDRESS; PT/INVESTMENT FUND MANAGER TO PROVIDE GAIT TRAINING FOR IMPROVED MOBILITY AND /OR TO NORMALIZE GAIT PATTERN NEUROMUSCULAR RE-EDUCATION / BALANCE / POSTURAL CONTROL (PT) THERAPEUTIC EXERCISES AND ESTABLISHING A HOME EXERCISE PROGRAM (PT/INVESTMENT FUND MANAGER) PT/INVESTMENT FUND MANAGER TO PROVIDE STAIR TRAINING PT TO ASSESS / INVESTMENT FUND MANAGER TO MONITOR FOR AND REPORT EARLY SIGNS OF ANTICOAGULANT TOXICITY TO THE PHYSICIAN AND/OR THE RN CLINICAL STATISTICAL METHODS TEACHER FOR PHYSICIAN NOTIFICATION AND TO PROVIDE PATIENT/CAREGIVER EDUCATION ON ANTICOAGULANT THERAPY PT / INVESTMENT FUND MANAGER TO MONITOR AND EDUCATE ON OXYGEN SATURATION DURING ADLS/IADLS, NOTIFY PHYSICIAN AND/OR THE RN CLINICAL STATISTICAL METHODS TEACHER FOR PHYSICIAN NOTIFICATION AND IF O2 SATS BELOW PHYSICIAN ORDERED PARAMETERS AFTER 10 MIN OF REST PT / INVESTMENT FUND MANAGER MAY EDUCATE ON PAIN MANAGEMENT CLINICALLY INDICATED, INCLUDING NON-PHARMACOLOGICAL PAIN REDUCTION TECHNIQUES.] Goal 2025-05-05 Patient Goal - TO WALK LINNEA LLY AGAIN Goal Patient Goal - TO WALK LINNEA LLY AGAIN Goal 2025-05-25 Patient Goal - TO WALK LINNEA LLY AGAIN Goal Provider Goal - A PLAN OF CARE WILL BE ESTABLISHED THAT MEETS THE PATIENT S NEEDS. PATIENT WILL DEMONSTRATE OXYGEN SATURATION WITHIN NORMAL LIMITS OR PATIENT S OPTIMAL LEVEL ESTABLISHED BY THE PHYSICIAN THROUGHOUT CARE. CHANGES TO CO-MORBID CONDITIONS AND ANY NEW CONDITIONS WILL BE IDENTIFIED AND REPORTED TO THE PHYSICIAN. Goal Provider Goal - PATIENT/CAREGIVER WILL VERBALIZE UNDERSTANDING OF SIGNS AND SYMPTOMS THAT PUT THE PATIENT AT RISK FOR HOSPITALIZATION /EMERGENCY ROOM VISITS, WHEN TO NOTIFY NURSE/PHYSICIAN OF COMPLICATIONS/DECLINE AND WHEN TO CALL 911. Goal Provider Goal - PATIENT/CAREGIVER TO VERBALIZE, AND CONSISTENTLY DEMONSTRATE EFFECTIVE, SAFE MANAGEMENT OF MEDICATION INCLUDING KNOWLEDGE OF EFFECTIVENESS, POTENTIAL SIDE EFFECTS AND DRUG REACTIONS AND WHEN TO CONTACT THE APPROPRIATE CARE PROVIDER. PATIENT/CAREGIVER WILL BE ABLE TO VERBALIZE UNDERSTANDING OF MEDICATION REGIMEN AND ACCURATELY TAKE MEDICATIONS PRESCRIBED WITHOUT ADVERSE EFFECTS BY END OF EPISODE. Goal Provider Goal - PATIENT / CAREGIVER WILL VERBALIZE/DEMONSTRATE UNDERSTANDING OF MEASURES TO MANAGE ALTERED CARDIOVASCULAR STATUS BY END OF EPISODE. Goal Provider Goal - PATIENT / CAREGIVER WILL VERBALIZE/DEMONSTRATE AN ABILITY TO ADHERE TO SELF-MANAGEMENT OF HTN TO MINIMIZE COMPLICATIONS AND AVOID HOSPITALIZATION BY END OF EPISODE. Goal Provider Goal - CHANGES IN SKIN INTEGRITY STATUS WILL BE IDENTIFIED AND REPORTED TO THE PHYSICIAN FOR PROMPT INTERVENTION. PATIENT / CAREGIVER WILL VERBALIZE/DEMONSTRATE ADEQUATE KNOWLEDGE OF INTEGUMENTARY STATUS AND APPROPRIATE MEASURES TO PROMOTE SKIN INTEGRITY AND PREVENT INJURY BY END OF EPISODE. Goal Provider Goal - PATIENT / CAREGIVER WILL VERBALIZE / DEMONSTRATE UNDERSTANDING OF PAIN CONTROL MEASURES BY END OF EPISODE. Goal Provider Goal - PATIENT / CAREGIVER WILL VERBALIZE/DEMONSTRATE UNDERSTANDING OF MEASURES TO MANAGE ALTERED GENITOURINARY STATUS BY END OF EPISODE. Goal Provider Goal - PATIENT/CAREGIVER WILL VERBALIZE/DEMONSTRATE UNDERSTANDING OF CARE AND MANAGEMENT OF URINARY TRACT INFECTION BY END OF EPISODE. Goal Provider Goal - PATIENT/CAREGIVER WILL VERBALIZE/DEMONSTRATE UNDERSTANDING OF FALL RISK FACTORS AND IMPLEMENT STRATEGIES TO MINIMIZE FALL RISK. PATIENT/CAREGIVER WILL VERBALIZE/DEMONSTRATE AN ABILITY TO ADHERE TO FALL REDUCTION SELF-MANAGEMENT AND LIFE-STYLE CHANGES BY END OF EPISODE. Goal Provider Goal - PT LTG: PATIENT WILL DEMONSTRATE REDUCED GAIT DEVIATIONS TO REDUCE THE RISK FOR FALLING AND MINIMIZE STRAIN ON KNEES/HIPS AND BACK EVIDENCED BY IMPROVED HEEL STRIKE, ADEQUATE STEP LENGTH AND CONSISTENT FOOT CLEARANCE BILATERALLY USING CANE TO WALK INDEPENDENTLY IN ORDER TO ACCESS ALL AREAS OF THE HOME AND TRANSPORTATION WITHIN 8 WEEKS PT LTG: PATIENT WILL DEMONSTRATE REDUCED FALL RISK EVIDENCED BY IMPROVED SELF- SELECTED WALKING SPEED (SSWS CUT SCORE 0.6 TO 0.9 INDICATES MODERATE FALL RISK, 0.6 M/S INDICATES HIGH FALL RISK) FROM 0.8M/SEC TO 1.0M/SEC WITHIN 8 WEEKS PT LTG: PATIENT WILL DEMONSTRATE REDUCED FALL RISK EVIDENCED BY TUG TEST (CUT SCORE >11 SECONDS INDICATES INCREASED FALL RISK) IMPROVING FROM NT TO 18 SECONDS WITHIN 8 WEEKS PT LTG: PATIENT WILL DEMONSTRATE INCREASED STRENGTH OF BILATERAL LES FROM 3-/5 TO 4/5 WITHIN 8 WEEKS IN ORDER TO IMPROVE SAFETY AND STABILITY WITH GAIT AND STAIRS PT LTG: PATIENT WILL DEMONSTRATE IMPROVED ABILITY TO SAFELY NEGOTIATE STAIRS FROM SBA TO INDEPENDENT WITH CANE AND RAIL IN ORDER TO SAFELY ENTER AND EXIT HOME WITHIN 8 WEEKS PT LTG: PATIENT WILL NOT EXHIBIT SIGNS AND SYMPTOMS OF ANTICOAGULANT TOXICITY THROUGHOUT EPISODE OF CARE. PT LTG: PATIENT WILL MAINTAIN OXYGEN SATURATION WITHIN PHYSICIAN ORDERED PARAMETERS THROUGHOUT EPISODE OF CARE. PT GOAL: PATIENT WILL DEMONSTRATE UNDERSTANDING OF PAIN MANAGEMENT TECHNIQUES BY END OF EPISODE. Encounters Start Date/Time End Date/Time Encounter Type Admission Type Attending Clinicians Care Facility Care Department Encounter ID Discharge Date Discharge Status Discharge Condition Discharge Reason Percent Goals Met 2025-05-29 00:00:00 2025-07-27 00:00:00 Outpatient [facility] [id number] 2
== END 2025-06-11 15:35 | disposition home or self-care (01) ==
LOC: HO.XRAY 15:34
PROVIDERS: PCP Internal Medicine; Referring Provider Nurse Practitioner Primary Care; Visit Provider Nurse Practitioner Family
DX: M47.817 Spondylosis without myelopathy or radiculopathy, lumbosacral region (principal); M51.369 Other intervertebral disc degeneration, lumbar region without mention of lumbar back pain or lower extremity pain; G89.29 Other chronic pain; M19.012 Primary osteoarthritis, left shoulder; M19.011 Primary osteoarthritis, right shoulder
CPT/HCPCS: 72114; 73030; 99202

== ENCOUNTER → 2025-06-11 16:31 | Outpatient (BNV) | payer MEDICARE, OTHER, SELFPAY | PROVIDERS: PCP Internal Medicine; Referring Provider Nurse Practitioner Primary Care; Visit Provider Radiology Diagnostic Radiology | DX: M51.360 Other intervertebral disc degeneration, lumbar region with discogenic back pain only (principal); M19.012 Primary osteoarthritis, left shoulder; M19.011 Primary osteoarthritis, right shoulder; M75.121 Complete rotator cuff tear or rupture of right shoulder, not specified as traumatic | CPT/HCPCS: 72114; 73030 ==

== ENCOUNTER 2025-06-18 09:31 | Outpatient (AMB) | payer MEDICARE, OTHER, SELFPAY ==
--- NOTE | 2025-06-18 09:41 | A.OFFVIS_ITS ---
Vital Signs 06/18/25 09:43 Height 6 ft 1 in Weight 260 lb BMI 34.3 BP 182/85 H Blood Pressure Location Lt brachial Position Sitting Respiration 16 Pulse 88 Pulse Source Pulse Oximeter Pulse Oximetry (%) 98 Oxygen Delivery Method Room Air Intake Visit Reasons: Left Shoulder Inj/US Per Alejandra Intake Note: Pain today 01/11 Workforce Investment Act Career Manager Required: No Perianesthesia Rn: Perianesthesia Rn Present Accompanied by: Nguyễn Urbano Allergies No Known Allergies Allergy (Verified 06/18/25 09:47) Medication List - Last Reconciled 06/18/25 by Shalonda Rosales LPN acetaminophen 500 mg PO Q6H PRN albuterol sulfate 90 mcg/actuation 2 puffs inhalation Q4H PRN amlodipine 5 mg PO DAILY ascorbic acid (vitamin C) 250 mg PO DAILY aspirin 81 mg PO DAILY atorvastatin 80 mg PO DAILY cetirizine 10 mg PO DAILY PRN epinephrine (EpiPen) 0.3 mg IM Q10M PRN ezetimibe 10 mg PO DAILY famotidine 20 mg PO DAILY ferrous sulfate (FeroSul) 325 mg PO DAILY fexofenadine (Allergy Relief (fexofenadine)) mg PO finasteride 5 mg PO DAILY fluoxetine 60 mg PO DAILY folic acid 1 mg PO DAILY gabapentin 1,200 mg PO BID hydroxyzine HCl 25 mg PO BEDTIME meclizine 25 mg PO ONCE melatonin 10 mg PO BEDTIME PRN omeprazole 40 mg PO DAILY oxybutynin chloride ER 10 mg PO QAM primidone 50 mg PO BEDTIME 90 days tamsulosin 0.4 mg PO BEDTIME valacyclovir 500 mg PO DAILY HPI Comments Details: History of Present Illness The patient is a 74 year old male presenting for management of shoulder pain. He reports pain in his left shoulder that is generalized all around and is exacerbated by movement. He has a history of surgery on his right shoulder. The patient also reports significant back pain, which he states was severe enough to prevent him from sitting comfortably. He is awaiting prior aut horization for a procedure for his back. Pain Description - Left shoulder pain: The patient describes the pain as being all around the shoulder. - Exacerbating factors: Movement of the shoulder makes the pain worse. - Back pain: The patient reports his back was killing him and he was unable to sit. Results - Ultrasound: Ultrasound was used to visualize the left supraspinatus tendon and the glenohumeral joint during the procedure. Pain Management - Analgesia: The patient received a Kenalog injection in his left shoulder for pain relief. - Activities of Daily Living: Back pain reportedly interferes with the patient's ability to sit comfortably. 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 Procedure - Procedure: Ultrasound-guided left shoulder injection. - Consent: Informed consent was obtained prior to the procedure. - Technique: The patient was placed in a sitting position, and the left shoulder was prepped. - Ultrasound guidance was used to identify the left supraspinatus tendon and the glenohumeral joint. - A 21-gauge needle was used to inject 20 mg of Kenalog into the supraspinatus tendon and 20 mg of Kenalog into the glenohumeral joint. - Outcome: The patient tolerated the procedure well. - Documentation: An ultrasound image of the injection was saved to the patient's record. Vital Signs: Last Vital Signs Pulse 88 06/18/25 09:43 Resp 16 06/18/25 09:43 BP 182/85 H 06/18/25 09:43 Pulse Ox 98 06/18/25 09:43 Oxygen Delivery Method Room Air 06/18/25 09:43 BMI result Body Mass Index 34.3 General: Appears afebrile. Alert and oriented. Mood and affect appropriate. Follows and participates in conversation appropriately. Respiratory effort is unlabored. No cough. Able to transition from sit to stand unassisted. Uses cane with ambulation. Ambulates with bilaterally normal heel strike and toe off. Extrem General: Yes capillary refill normal, Yes no clubbing, cyanosis or edema and Yes no calf tenderness Left upper extremity: shoulder/upper arm (Limited ROM with I/E rotations due to pain.) Details: inspection abnormal, tenderness Location: of the A-C joint and over the subacromial bursa and crepitus; no swelling, no ecchymosis and no unsual warmth Results Reviewed Results Reviewed: XRAY Shoulder Hoang Min 2v 06/11/25 TECHNIQUE: AP external rotation, Grashey, Y, and axillary view, bilateral shoulders INDICATION: Bilateral shoulder pain Prior: None FINDINGS: LEFT SHOULDER: Mild degenerative irregularity is seen across the greater tuberosity. Marginal osteophytes are visible along the glenoid. Focal calcification projects cephalad to the humeral head, possibly chondrocalcinosis versus central osteophyte. There is marginal osteophyte involving superior lateral humeral head. AC joint is intact. It appears narrowed with small marginal osteophytes. Glenohumeral joint is intact. RIGHT SHOULDER: There are 5 anchors in the lateral anatomic neck of humerus consistent with prior rotator cuff repair. There is degenerative irregularity of the greater tuberosity. There are moderate marginal osteophytes involving humeral head and glenoid. There is mild elevation of the humeral head with narrowing of the subacromial space. There is a small ossification superior lateral humeral head and superior medial to the humeral head. There are mild degenerative changes of the AC joint which is otherwise intact. IMPRESSION: LEFT SHOULDER: Mild degenerative changes of the glenohumeral and AC joints. RIGHT SHOULDER: The anchors from prior rotator cuff repair. There is narrowing of the subacromial space raising question of underlying rotator cuff retear. Moderate degenerative changes are present in the glenoid humeral joint and mild degenerative changes are present in the AC joint. 1-2 possible intra-articular ossified bodies in the superior glenohumeral joint. XR LUMBOSACRAL SPINE 06/11/25 CLINICAL INFORMATION: M54.50 - Low back pain, unspecified COMPARISON: None available. TECHNIQUE: AP, bilateral oblique, lateral spot, and lateral: Flexion, neutral, and extension view x-rays of the lumbar spine. FINDINGS: There are 5 non-rib bearing lumbar segments. T12-L1: There is mild disc space narrowing and calcification in the anterior disc annulus L1-L2: There is mild disc space narrowing and calcification of the anterior disc annulus and anterior osteophytes. There is endplate sclerosis. L2-L3: There is mild to moderate disc space narrowing with endplate sclerosis and osteophytes. L3-L4: There is mild to moderate disc space narrowing with subtle retrolisthesis. There is endplate sclerosis and osteophytes. On the oblique view, there is possible pars intra-articular's defect on the right. L4-L5: There is moderate to severe disc space narrowing with endplate sclerosis and osteophyte. There is grade 1 anterolisthesis. There is facet arthropathy. L5-S1: There is moderate disc space narrowing with endplate sclerosis and osteophytes. There is also facet sclerosis. 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 There is no evidence of instability during flexion and extension. Assessment & Plan Assessment & Plan (1) Left shoulder pain: Code(s): M25.512 - Pain in left shoulder Category: Medical (2) Osteoarthritis of left shoulder: Code(s): M19.012 - Primary osteoarthritis, left shoulder Category: Medical Plan Patient was informed and verbally consented to the use of an ambient scribe for clinic note documentation during this visit. 1. Left Shoulder Pain - An ultrasound-guided injection with 20 mg of Kenalog was administered to the supraspinatus tendon and 20 mg was administered to the glenohumeral joint. 2. Right Shoulder Pain - It was decided to administer one injection at a time to avoid too much cortisone at once. - A follow-up appointment has been scheduled for next Wednesday at 10:30 AM, possibly for treatment of the other shoulder. 3. Low Back Pain - The patient is on a list for prior authorization for a back procedure. - The office will contact him as soon as the authorization is received. Discussion Notes I discussed the plan for shoulder injections with the patient. We decided to perform one injection today and schedule a follow-up for the other shoulder, as it is better not to administer too much cortisone at one time. Consent was confirmed before I proceeded with the ultrasound-guided left shoulder injection. I also informed him that we are awaiting prior authorization for his back procedure and that he will be contacted once it is approved. A follow-up appointment was scheduled for next Wednesday at 10:30 AM. Patient Instructions - You have a follow-up appointment scheduled for next Wednesday at 10:30 AM. - Our office is working on getting approval from your insurance for your back procedure. - We will call you as soon as we have an update on the approval. Coding Level of Care Code Procedure Only Diagnoses Left shoulder pain M25.512 Osteoarthritis of left shoulder M19.012
[2025-06-18 09:43] VITALS: BP 182/85; PULSE 88; RESP 16; O2SAT 98; BMI 34.3
== END 2025-06-18 10:41 | disposition home or self-care (01) ==
LOC: HO.PMC 09:31
PROVIDERS: PCP Internal Medicine; Visit Provider Internal Medicine
DX: M25.512 Pain in left shoulder (principal); M19.012 Primary osteoarthritis, left shoulder
CPT/HCPCS: 20611

== ENCOUNTER → 2025-06-18 09:31 | Outpatient (BNVA) | payer MEDICARE, OTHER, SELFPAY | PROVIDERS: PCP Internal Medicine; Visit Provider Internal Medicine | DX: M25.512 Pain in left shoulder (principal); M19.012 Primary osteoarthritis, left shoulder; M54.50 Low back pain, unspecified | CPT/HCPCS: 20611 ==

== ENCOUNTER 2025-06-27 10:12 | Outpatient (AMB) | payer MEDICARE, OTHER, SELFPAY ==
[2025-06-27 10:18] VITALS: BP 136/74; PULSE 84; RESP 16; O2SAT 97; BMI 34.3
--- NOTE | 2025-06-27 10:18 | A.OFFVIS_ITS ---
Vital Signs 06/27/25 10:18 Height 6 ft 1 in Weight 260 lb BMI 34.3 BP 136/74 Blood Pressure Location Lt brachial Position Sitting Respiration 16 Pulse 84 Pulse Source Pulse Oximeter Pulse Oximetry (%) 97 Oxygen Delivery Method Room Air Intake Visit Reasons: Right Shoulder Inj. Ok Per Dr. Castillo Chief Medical Technologist Required: No Incident Response Coordinator: Incident Response Coordinator Present Accompanied by: Nguyễn Urbano Allergies No Known Allergies Allergy (Verified 06/27/25 10:21) Medication List - Last Reconciled 06/27/25 by Shalonda Rosales LPN acetaminophen 500 mg PO Q6H PRN albuterol sulfate 90 mcg/actuation 2 puffs inhalation Q4H PRN amlodipine 5 mg PO DAILY ascorbic acid (vitamin C) 250 mg PO DAILY aspirin 81 mg PO DAILY atorvastatin 80 mg PO DAILY cetirizine 10 mg PO DAILY PRN epinephrine (EpiPen) 0.3 mg IM Q10M PRN ezetimibe 10 mg PO DAILY famotidine 20 mg PO DAILY ferrous sulfate (FeroSul) 325 mg PO DAILY fexofenadine (Allergy Relief (fexofenadine)) mg PO finasteride 5 mg PO DAILY fluoxetine 60 mg PO DAILY folic acid 1 mg PO DAILY gabapentin 1,200 mg PO BID hydroxyzine HCl 25 mg PO BEDTIME meclizine 25 mg PO ONCE melatonin 10 mg PO BEDTIME PRN omeprazole 40 mg PO DAILY oxybutynin chloride ER 10 mg PO QAM primidone 50 mg PO BEDTIME 90 days tamsulosin 0.4 mg PO BEDTIME valacyclovir 500 mg PO DAILY HPI HPI Right Shoulder Inj. Ok Per Dr. Castillo: Details: History of Present Illness The patient is a 74 year old male presenting for management of chronic pain. He has a history of three rotator cuff surgeries on his right shoulder and was previously recommended to have a shoulder replacement, which he declined. For his right shoulder pain, he typically receives an injection about once a year. The patient reports that his left shoulder pain is improving. He also endorses s evere chronic back pain. Pain Description - Left shoulder: Pain is reportedly improving. - Right shoulder: Chronic pain post-surgical, managed with injections approximately once a year. - Back: Patient describes his back pain as very severe. Ultrasound-guided injection was performed on the right shoulder. - The patient was placed in a sitting position, and the area was prepped. - A 21-gauge needle was advanced into the glenohumeral joint, and a mixture of 20 mg of Kenalog and ropivacaine 0.25% was injected. - The needle was then withdrawn to the supraspinatus tendon, where a mixture of 10 mg of Kenalog and ropivacaine was injected. - The patient tolerated the procedure well. - Image saved. Pain Management: - Analgesia: The patient manages his right shoulder pain with corticosteroid injections approximately once per year. - He received a right shoulder injection during this visit. 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 without sciatica Hypertension Hyperlipidemia Kidney cysts Benign essential tremor Surgical History (Updated 06/13/25 @ 13:18 by ISAAC Calabrese) History of rotator cuff surgery H/O parathyroidectomy Social History Alcohol intake: current Alcohol intake frequency: 0-2 drinks per day Alcohol type: wine Substance Use Type: Marijuana Physical Exam Vital Signs: Last Vital Signs Pulse 84 06/27/25 10:18 Resp 16 06/27/25 10:18 BP 136/74 06/27/25 10:18 Pulse Ox 97 06/27/25 10:18 Oxygen Delivery Method Room Air 06/27/25 10:18 BMI result Body Mass Index 34.3 Assessment & Plan Assessment & Plan (1) Bilateral shoulder pain: Code(s): M25.511 - Pain in right shoulder; M25.512 - Pain in left shoulder Category: Medical Plan Plan Patient was informed and verbally consented to the use of an ambient scribe for clinic note documentation during this visit. 1. Right Shoulder Pain - An ultrasound-guided injection was performed on the right shoulder. 2. Chronic Low Back Pain - Authorization for bilateral diagnostic lumbar medial branch blocks is pending. - Will check on the status of the authorization process in order to proceed with the procedure. Discussion Notes I performed an ultrasound-guided right shoulder injection for the patient today. The procedure involved placing him in a sitting position, prepping the shoulder, and injecting the glenohumeral joint and supraspinatus tendon with a mixture of Kenalog and ropivacaine. The patient tolerated the procedure well. We are still awaiting authorization for his bilateral diagnostic lumbar medial branch blocks and will follow up on the status. Patient Instructions - Keep the injection site on your right shoulder clean. - We will check on the authorization for your back procedure and let you know the status. Coding Level of Care Code Procedure Only Diagnoses Bilateral shoulder pain M25.511; M25.512
--- OUTSIDE RECORDS SUMMARY | 2025-06-27 10:22 | XMS_ITS | Encounter Summary ---
Author Organization [facility] Address [address] [place] [address] Care Team Providers Care Public Employment Mediator Name Role Phone Birdie Dwyer MD Primary Care Provider [phone] Encounter Details Date Type Department Care Team (Late st Contact Info) Description 03/03/2025 Lab Requisition [facility] - Main Lab [address] [facility] [place] [address] Rajinder Vidal MD [address] [place] [address] [address] [facility] [phone] Weakness Social History Tobacco [...] care for your loved ones. For example, early childhood special educator or elderly care for an older adult? [...] Care Team (Late st Contact Info) Description 06/27/2025 3:15 PM EST Office Visit Internal Medicine - [address] [phone] Uzma Masters, FELIX [address] [place] [id number] 07/25/2025 2:00 PM EST Office Visit Internal Medicine - [address] [place] [phone] Parrish Ashton NP [address] [place], [place] 10/10/2025 2:00 PM EDT Office Visit Internal Medicine - [facility] [address] [place], [place] [phone] Birdie Dwyer MD [address] [place], [place] documented as of this encounter Procedures Procedure Name Priority Date/Time Associated Diagnosis Comments COMPLETE BLOOD COUNT Routine 03/06/2025 7:26 AM EDT Weakness BASIC METABOLIC PANEL Routine 03/06/2025 7:26 AM EDT Weakness documented in this encounter Results * (ABNORMAL) Basic metabolic panel (03/06/2025 7:26 AM EDT) Sodium 138 133 - 145 mmol/L LAB CHEMISTRY METHOD 03/06/2025 11:17 AM [facility] Potassium 4.4 3.5 - 5.5 mmol/L LAB CHEMISTRY METHOD 03/06/2025 11:17 AM [facility] Chloride 106 96 - 110 mmol/L LAB CHEMISTRY METHOD 03/06/2025 11:17 AM [facility] CO2 25 21 - 32 mmol/L LAB CHEMISTRY METHOD 03/06/2025 11:17 AM [facility] Anion Gap 7 3 - 11 LAB CHEMISTRY METHOD 03/06/2025 11:17 AM [facility] Glucose 76 70 - 100 mg/dL LAB CHEMISTRY METHOD 03/06/2025 11:17 AM [facility] BUN 10 5 - 25 mg/dL LAB CHEMISTRY METHOD 03/06/2025 11:17 AM [facility] Creatinine 0.68(L) 0.70 - 1.30 mg/dL LAB CHEMISTRY METHOD 03/06/2025 11:17 AM EDT [facility] eGFR 98 >=60 mL/min/1. 73m2 LAB CHEMISTRY METHOD 03/06/2025 11:17 AM EDT [facility] Comment:Calculation based on the Chronic Kidney Disease Epidemiology Collaboration (CKD-EPI) equation refit without adjustment for race. BUN/Creatinine Ratio 14.7 LAB CHEMISTRY METHOD 03/06/2025 11:17 AM EDT [facility] Calcium 8.4(L) 8.5 - 10.5 mg/dL LAB CHEMISTRY METHOD 03/06/2025 11:17 AM T [facility] Blood Venous blood specimen / Unknown Venipuncture / Unknown 03/06/2025 7:26 AM EDT 03/06/2025 10:17 AM EDT us Rajinder Vidal MD LAB BLOOD ORDERABLES Final Resul t [facility] [address] [place] [address], * (ABNORMAL) Complete blood count (03/06/2025 7:26 AM EDT) WBC 8.8 4.8 - 10.8 K/mcL LAB HEMETOLOGY METHOD 03/06/2025 10:37 AM EDT [facility] RBC 3.60(L) 4.50 - 5.50 M/mcL LAB HEMETOLOGY METHOD 03/06/2025 10:37 AM EDT [facility] Hemoglobin 10.3(L) 13.5 - 17.5 g/dL LAB HEMETOLOGY METHOD 03/06/2025 10:37 AM T [facility] Hematocrit 31.4(L) 42.0 - 54.0 % LAB HEMETOLOGY METHOD 03/06/2025 10:37 AM EDT [facility] MCV 88.5 79.0 - 98.0 FL LAB HEMETOLOGY METHOD 03/06/2025 10:37 AM EDT [facility] MCH 29.0 27.0 - 32.0 pcg LAB HEMETOLOGY METHOD 03/06/2025 10:37 AM EDT [facility] MCHC 32.8 32.0 - 37.0 g/dL LAB HEMETOLOGY METHOD 03/06/2025 10:37 AM EDT [facility] RDW 14.8 11.0 - 15.0 % LAB HEMETOLOGY METHOD 03/06/2025 10:37 AM EDT [facility] Platelets 279 130 - 400 K/mcL LAB HEMETOLOGY METHOD 03/06/2025 10:37 AM EDT [facility] MPV 10.4 7.0 - 11.0 FL LAB HEMETOLOGY METHOD 03/06/2025 10:37 AM EDT [facility] NRBC 0.0 <1.0 % LAB HEMETOLOGY METHOD 03/06/2025 10:37 AM EDT [facility] NRBC Absolute 0.00 <0.10 K/mcL LAB HEMETOLOGY METHOD 03/06/2025 10:37 AM T [facility] Blood Venous blood specimen / Unknown Venipuncture / Unknown 03/06/2025 7:26 AM EDT 03/06/2025 10:18 AM EDT us Rajinder Vidal MD LAB BLOOD ORDERABLES Final Resul t [facility] [address] [place] [address], documented in this encounter Visit Diagnoses Diagnosis Weakness Other malaise and fatigue documented in this encounter Additional Health Concerns Infection Onset Date Last Indicated Resolved Time Respiratory Rule-Out 04/30/2025 04/30/2025 025 4:03 PM EDT COVID-19 Rule-Out 04/30/2025 04/30/2025 04/30/2025 4:03 PM EDT Assessment Noted Time PHQ-9 Depression Total Score: 0 11/11/19 3:32 PM EDT documented as of this encounter Care Teams Public Employment Mediator Relationship Specialty Start Date End Date Birdie Dwyer MD [address] [facility] [place] [phone] PCP - General Internal Medicine 01/29/25 documented as of this encounter
--- OUTSIDE RECORDS SUMMARY | 2025-06-27 10:22 | XMS_ITS | Encounter Summary ---
Author Organization [facility] Address [address] [place] [address] Care Team Providers Care Enterprise Software Engineer Name Role Phone Birdie Dwyer MD Primary Care Provider [phone] Reason for Visit * Reason Onset Date Comments vna call 05/30/2025 Encounter Details Date Type Department Care Team (Late st Contact Info) Description 05/30/2025 Telephone Internal Medicine - [facility] [address] [place], [place] [phone] Birdie Dwyer MD [address] [place], [place] Social History Tobacco Use Types Packs/Day [...] for your loved ones. For example, child caregiver or elderly care for an older adult? [...] [facility] CALL [facility] Full name of caller: Izabella The caller [...] PM EST [facility] [address] [place] [address] Uzma Masters NP [address] [place] [address] 07/25/2025 2:00 PM EST Office Visit Internal Medicine - [facility] [address] [place] [address] Parrish Ashton NP [address] [place] [address] 10/10/2025 2:00 PM EDT [facility] [address] [place] [address] Birdie Dwyer MD [address] [place] [phone] documented as of this encounter Visit Diagnoses Not on filedocumented in this encounter Additional Health Concerns Assessment Noted Time PHQ-9 Depression Total Score: 0 11/11/19 3:32 PM EDT documented as of this encounter Care Teams Enterprise Software Engineer Relationship Specialty Start Date End Date Birdie Dwyer MD [address] [facility] [place] PCP - General Internal Medicine 01/29/25 documented as of this encounter
--- OUTSIDE RECORDS SUMMARY | 2025-06-27 10:22 | XMS_ITS | Patient Health Record ---
Author Organization [facility] Address [address] [facility] [place] [address] Care Team Providers Care Ancillary Services Manager Therapy Name Role Phone Michelle Baum Unavailable [phone] Allergies No Known Allergies Reason For Referral [...] Status W/U Status Risk Notes Problem Neuropathy (521819768) Neuropathy (G62.9) Active confirmed Problem Mononeuropathy of lower limb (760676836) Neuritis of right foot (G57.91) Active confirmed Problem Mononeuropathy of lower limb (990359559) Neuritis of left foot (G57.92) Active confirmed Plan Of Treatment No Information Insurance Providers Payer Name Payer Address Payer Phone Subscriber Number Group Number Insured Name Patient Relationship to Insured Coverage Start Date Coverage End Date Medicare [employer] [address] [facility] [place] [address] [id number] Madeline Tavarez Self - patient is the insured [facility] [address] [place] [address] [id number] Lacy Tavarez Spouse - patient is [...]
--- OUTSIDE RECORDS SUMMARY | 2025-06-27 10:22 | XMS_ITS | Clinical Summary ---
Author Organization [place] [address] [address] [facility] Building Address [address] [place] [address] Phone Care Team Providers Care Industrial Electrical Engineer Name Role Phone Birdie Dwyer MD Primary Care Provider [phone] Allergies No known active allergies Medications acetaminophen [...] each 1 025 2025 Active amLODIPine (NORVASC) 10 mg tabletIndications :Hypertension, unspecified type Take 1 tablet (10 mg total) by mouth 1 (one) time each day. 30 each 5 025 2025 Active amLODIPine (NORVASC) 5 mg tabletIndications :Hypertension, unspecified type Take 1 tablet (5 mg total) by mouth 1 (one) time each day. 90 each 025 2024 Discontinued Active Problems Problem Noted [...] 06/13/2019 Obstructive sleep apnea 10/25/2017 Overview (05/23/2024): [facility] Home Polysomnogram: Date 10/20/20172; AHI 8, Unclassified [...] fatigue in order to get a test patient portal representative of his current symptoms. He does [...] - eradication Tremor 12/10/2008 Overview (05/23/2024): Neurology (6/25/18) : Primidone successfully treating essential tremor. Presentation does not suggest Parkinson's. Follow-up as needed Edislyle; Essential Tremor;2009 Hypertension 04/30/2008 Overview (05/23/2024): Echocardiogram in August [...] Encounters Date Type Department Care Team Description 06/18/2025 3:00 PM EST [facility] [place] [address] John Paul Leyva NP Hypertension, unspecified type (Primary Dx) 05/30/2025 Telephone Internal Medicine - [place] [address] [place] [address] Birdie Dwyer MD 05/25/2025 Telephone Internal Medicine [address] [phone] Birdie Dwyer MD 05/17/2025 10:30 AM EST Office Visit Internal Medicine [address] [phone] Parrish Ashton, FELIX Kidney cysts (Primary Dx); Hyperlipidemia, unspecified hyperlipidemia type; Hypertension, unspecified type; Angiomyolipoma of right kidney; Benign prostatic hyperplasia with lower urinary tract symptoms, symptom details unspecified; Chronic midline low back pain without sciatica 05/04/2025 Telephone Internal Medicine [address] [phone] Dana Gutierrez RN 05/04/2025 Telephone Internal [address] [phone] Birdie Dwyer MD 04/30/2025 1:57 PM EDT - 05/03/2025 2:02 PM EDT Hospital Encounter [facility] [address] [place] [address] Steve Goodwin MD Jones, Christopher, MD Seralathan, Manikandan, MD Bilateral lower extremity edema (Primary Dx); Dyspnea, unspecified type; Cystitis; Gastroesophageal reflux disease, unspecified whether esophagitis present Discharge Disposition: Home-Health Care [facility] 04/30/2025 10:15 AM EDT Office Visit Internal Medicine [address] [phone] Uzma Masters NP Dehydration (Primary Dx) 04/27/2025 Telephone Internal Medicine [address] [phone] Birdie Dwyer MD from Last 3 Months Immunizations Immunization Administration [...] AG, SCREEN; COMMENT: 0.3 VASECTOMY 03/2006 PROCEDURE: AK VASECTOMY UNI/BI SPX W/POSTOP SEMEN EXAMS; COMMENT: Jose Francisco OTHER SURGICAL HISTORY 02/2022 Bilateral PROCEDURE: AK ANES RPR RUPTURED ACHILLES TENDON W/WO GRAFT; COMMENT: bilat CARDIOVASCULAR STRESS TEST 02/2007 PROCEDURE: AK CV STRS TST XERS&/OR RX CONT ECG W/O I&R; COMMENT: neg ESOPHAGOGASTRODUODENOSCOPY 05/15/2008 PROCEDURE: AK EGD TRANSORAL BIOPSY SINGLE/MULTIPLE; COMMENT: Esophagitis-bx:Nl, Antral gastritis and gastric nodule with umbilication-bx:Chronic 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 Dr. Oneil COLONOSCOPY W/ POLYPECTOMY 11/25/2016 PROCEDURE: AK COLSC FLX W/RMVL OF TUMOR POLYP LESION SNARE TQ; COMMENT: tics and adenomas; repeat in 5 yrs OTHER SURGICAL HISTORY N/A PROCEDURE: AK THYROIDECTOMY TOTAL/COMPLETE OTHER SURGICAL HISTORY 08/2021 PROCEDURE: AK MEDIASTINOSCOPY INCLUDES MEDIASTINAL MASS BIOPSY; COMMENT: thymoma [...] re flux disease) Cancer of chest (wall) ([facility] V24, [facility] V28) DX:Cancer of chest (wall) [...] your loved ones. For example, early childhood teacher assistant or elderly care for an older adult? [...] Sign Reading Time Taken Comments Blood Pressure 142/75 06/18/2025 3:29 PM EST Pulse 91 06/18/2025 3:19 PM EST Temperature 36.3 C (97.3 F) 05/03/2025 7:51 AM EDT Respiratory Rate 18 05/03/2025 7:51 AM EDT Oxygen Saturation 95% 05/03/2025 7:51 AM EDT Inhaled Oxygen Concentration - - Weight 120 kg (264 lb 12.8 oz) 06/18/2025 3:19 P M EST Height 185.4 cm (6' 1 ) 06/18/2025 3:19 PM EST Body Mass Index 34.94 06/18/2025 3:19 PM EST Plan of Treatment Upcoming Encounters Date Type Department Care Team (Late st Contact Info) Description 06/27/2025 3:15 PM EST Office Visit Internal Medicine - [address] [phone] Uzma Masters NP [address] [place] [address] 07/25/2025 2:00 PM EST Office Visit Internal Medicine [address] [phone] Parrish Ashton NP [address] [place] [address] 10/10/2025 2:00 PM EDT Office Visit Internal Medicine [address] [phone] Birdie Dwyer MD [address] [place] [address] Health Maintenance Due Date Last Done Comments [...] Abdominal Aortic Aneurysm (AAA) Screen Discontinued 05/02/2024 Influenza Vaccine Completed 03/12/2025, , 04/13/2023, Additional history exists Depression Screening Completed 06/18/2025 HIB Vaccines Aged Out No longer eligi [...] Procedure Name Priority Date/Time Associated Diagnosis Comments EXTERNAL XRAY REPORT 06/11/2025 EXTERNAL XRAY REPORT 06/11/2025 ECG ANNOTATED 06/08/2025 CULTURE URINE Routine 05/02/2025 [...] ECG 12-LEAD STAT 04/30/2025 3:00 PM EDT [id number], RSV, FLU A AND B QUALITATIVE RT-PCR, [...] DIFFERENTIAL Routine 04/30/2025 11:52 AM EDT Dehydration LIPID PANEL WITH REFLEX TO DIRECT LDL Routine 11/10/2024 3:56 PM EDT Hyperlipidemia, unspecified hyperlipidemia type COLONOSCOPY Routine 2023 HEPATITIS C SCREENING Routine 07/23/2010 from Last 3 Months or Most Recently Relevant to Health Maintenance Results * External Xray Report (06/11/2025) Only the most recent of2 resultswithin the time period is included. Anatomical Region Laterality Modality Radiographic Karen ging us Provider [facility] IMG XR PROCEDURES Final Result * ECG-Annotated (06/08/2025) Provider Onbase MD ECG ORDERABLES Final Result * Culture urine (05/02/2025 9:15 AM EDT) Culture, Urine No growth 05/03/2025 8:57 AM EDT [facility] Urine Urine specimen obtained by clean catch procedure / Unknown Non-blood Collection / Unknown 05/02/2025 9:15 AM EDT 05/02/2025 10:46 AM EDT Pako Gandara MD LAB MICROBIOLOGY - GENE RAL ORDERABLES Final Result [facility] [address] [place] [address], * (ABNORMAL) Manual differential (05/02/2025 6:49 AM EDT) Neutrophils % 60.0 % LAB HEMETOLOGY METHOD 5 8:06 AM EDT [facility] Lymphocytes % 25.0 % LAB HEMETOLOGY METHOD 5 8:06 AM EDT [facility] Monocytes % 10.0 % LAB HEMETOLOGY METHOD 5 8:06 AM [facility] Eosinophils % 3.0 % LAB HEMETOLOGY METHOD 5 8:06 AM [facility] Basophils % 1.0 % LAB HEMETOLOGY METHOD 5 8:06 AM [facility] Metamyelocytes % 1.0(H) % LAB HEMETOLOGY METHOD 5 8:06 AM [facility] Neutrophils Absolute Manual 5.76 1.50 - 7.00 K/mcL LAB HEMETOLOGY METHOD 5 8:06 AM [facility] Lymphocytes Absolute 2.40 1.00 - 5.00 K/mcL LAB HEMETOLOGY METHOD 5 8:06 AM [facility] Monocytes Absolute Manual 0.96 0.20 - 1.00 K/mcL LAB HEMETOLOGY METHOD 5 8:06 AM [facility] Eosinophils Absolute Manual 0.29 0.00 - 0.50 K/mcL LAB HEMETOLOGY METHOD 5 8:06 AM [facility] Basophils Absolute Manual 0.10 0.00 - 0.20 K/mcL LAB HEMETOLOGY METHOD 5 8:06 AM [facility] Metamyelocytes Absolute Manual 0.10(H) 0.00 - 0.00 K/mcL LAB HEMETOLOGY METHOD 5 8:06 AM [facility] Rbc Morphology Consistent with indices Consistent with indices, Normal for [place] LAB HEMETOLOGY METHOD 5 8:06 AM [facility] Platelet Morphology - WAM See Note(A) Normal LAB HEMETOLOGY METHOD 5 8:06 AM [facility] Comment:PLT: Large platelets seen Blood Venous blood specimen / Unknown Venipuncture / Unknown 05/02/2025 6:49 AM EDT 05/02/2025 7:11 AM EDT Pako Gandara MD LAB BLOOD ORDERABLES Fi nal Result [facility] [address] [place] [address], * (ABNORMAL) CBC auto differential (05/02/2025 6:49 AM EDT) Only the most recent of4 resultswithin the time period is included. WBC 9.6 4.8 - 10.8 K/mcL LAB HEMETOLOGY METHOD 05/02/2025 8:06 AM [facility] RBC 3.60(L) 4.50 - 5.50 M/mcL LAB HEMETOLOGY METHOD 05/02/2025 8:06 AM [facility] Hemoglobin 10.3(L) 13.5 - 17.5 g/dL LAB HEMETOLOGY METHOD 05/02/2025 8:06 AM [facility] Hematocrit 31.7(L) 42.0 - 54.0 % LAB HEMETOLOGY METHOD 05/02/2025 8:06 AM [facility] MCV 87.3 79.0 - 98.0 FL LAB HEMETOLOGY METHOD [facility]/02[facility]2025 [facility] MCH 28.4 27.0 - 32.0 pcg LAB HEMETOLOGY METHOD 05/02/2025 8:06 AM [facility] MCHC 32.5 32.0 - 37.0 g/dL LAB HEMETOLOGY METHOD 05/02/2025 8:06 AM [facility] RDW 14.9 11.0 - 15.0 % LAB HEMETOLOGY METHOD 05/02/2025 8:06 AM [facility] Platelets 200 130 - 400 K/mcL LAB HEMETOLOGY METHOD 05/02/2025 8:06 AM EDT [facility] MPV 11.4(H) 7.0 - 11.0 FL LAB HEMETOLOGY METHOD 05/02/2025 8:06 AM EDT [facility] NRBC 0.0 <1.0 % LAB HEMETOLOGY METHOD 05/02/2025 8:06 AM EDT [facility] NRBC Absolute 0.00 <0.10 K/mcL LAB HEMETOLOGY METHOD 05/02/2025 8:06 AM EDT [facility] Blood Venous blood specimen / Unknown Venipuncture / Unknown 05/02/2025 6:49 AM EDT 05/02/2025 7:11 AM EDT us Pako Gandara MD LAB BLOOD ORDERABLES Fi nal Result [facility] [address] [place] [address], [place] [phone] * Phosphorus (05/02/2025 6:49 AM EDT) Phosphorus 3.5 2.5 - 4.5 mg/dL LAB CHEMISTRY METHOD 05/02/2025 8:02 AM EDT [facility] Blood Venous blood specimen / Unknown Venipuncture / Unknown 05/02/2025 6:49 AM EDT 05/02/2025 7:11 AM EDT us Pako Gandara MD LAB BLOOD ORDERABLES Fi nal Result [facility] [address] [place] [address], [place] [phone] * Magnesium (05/02/2025 6:49 AM EDT) Magnesium 2.0 1.9 - 2.6 mg/dL LAB CHEMISTRY METHOD 05/02/2025 8:02 AM [facility] Blood Venous blood specimen / Unknown Venipuncture / Unknown 05/02/2025 6:49 AM EDT 05/02/2025 7:11 AM EDT Pako Gandara MD LAB BLOOD ORDERABLES Fi nal Result [facility] [address] [place] [address], [place] [phone] * (ABNORMAL) Basic metabolic panel (05/02/2025 6:49 AM EDT) Only the most recent of2 resultswithin the time period is included. Sodium 138 133 - 145 mmol/L LAB CHEMISTRY METHOD 05/02/2025 8:02 AM [facility] Potassium 3.5 3.5 - 5.5 mmol/L LAB CHEMISTRY METHOD 05/02/2025 8:02 AM [facility] Chloride 104 96 - 110 mmol/L LAB CHEMISTRY METHOD 05/02/2025 8:02 AM [facility] CO2 28 21 - 32 mmol/L LAB CHEMISTRY METHOD 05/02/2025 8:02 AM [facility] Anion Gap 6 3 - 11 LAB CHEMISTRY METHOD 05/02/2025 8:02 AM [facility] Glucose 130(H) 70 - 100 mg/dL LAB CHEMISTRY METHOD 05/02/2025 8:02 AM [facility] BUN 10 5 - 25 mg/dL LAB CHEMISTRY METHOD 05/02/2025 8:02 AM [facility] Creatinine 0.92 0.70 - 1.30 mg/dL LAB CHEMISTRY METHOD 05/02/2025 8:02 AM [facility] eGFR 87 >=60 mL/min/1. 73m2 LAB CHEMISTRY METHOD 05/02/2025 8:02 AM EDT [facility] Comment:Calculation based on the Chronic Kidney Disease Epidemiology Collaboration (CKD-EPI) equation refit without adjustment for race. BUN/Creatinine Ratio 10.9 LAB CHEMISTRY METHOD 05/02/2025 8:02 AM EDT [facility] Calcium 8.4(L) 8.5 - 10.5 mg/dL LAB CHEMISTRY METHOD 05/02/2025 8:02 AM EDT [facility] Blood Venous blood specimen / Unknown Venipuncture / Unknown 05/02/2025 6:49 AM EDT 05/02/2025 7:11 AM EDT us Pako Gandara MD LAB BLOOD ORDERABLES Fi nal Result [facility] [address] [place] [address], [place] [phone] * (ABNORMAL) TRANSTHORACIC ECHOCARDIOGRAM (TTE) COMPLETE (05/01/2025 11:13 AM EDT) Left Atrium Minor [place] 6.5 cm CV PACS Left Atrium Major [place] 6.7 cm CV PACS LA Area Sys [...] Volume 68 mL CV PACS MV Deceleration [place] 3.4 m/s2 CV PACS E Wave Deceleration [...] S' 15 cm/s CV PACS RA Major [place] 5.4 cm CV PACS RA Major [place] Index 2.3 2.1 - 2.7 cm/m2 CV [...] at 5 days 05/06/2025 9:01 AM EST [facility] Blood Venous blood specimen / Unknown Venipuncture / Unknown 05/01/2025 9:11 AM EDT 05/01/2025 9:19 AM EDT us Pako Gandara MD LAB MICROBIOLOGY - GENE RAL ORDERABLES Final Result [facility] [address] [place] [address], [place] [phone] * CT Abdomen Pelvis w Contrast (04/30/2025 [...] Signed Date: 04/30/2025 17:23 ET Workstation ID: [id number] Transcribed By: Self Edit Transcribed Date: 04/30/2025 [...] Signed Date: 04/30/2025 17:23 ET Workstation ID: [id number] Transcribed By: Self Edit Transcribed Date: 04/30/2025 17:17 ET Steve Goodwin MD IM CT PROCEDURES Final Result * CT Angio [...] Signed Date: 04/30/2025 17:31 ET Workstation ID: [id number] Transcribed By: Self Edit Transcribed Date: 04/30/2025 [...] by the technologist on an independent workstation. [employer] VCT dose reduction utilizing iterative reconstruction. Total [...] obtained by the technologist on anindependent workstation. [employer] dose reduction utilizing iterative reconstruction. Total exam [...] Signed Date: 04/30/2025 17:31 ET Workstation ID: [id number] Transcribed By: Self Edit Transcribed Date: 04/30/2025 17:24 ET Steve Goodwin MD [facility] CT PROCEDURES Final Result * Lactate, with Reflex (04/30/2025 3:07 PM EDT) LACTIC ACID 1.5 0.4 - 2.0 mmol/L LAB CHEMISTRY METHOD 04/30/2025 3:55 PM EDT [facility] Blood Venous blood specimen / Unknown Venipuncture / Unknown 04/30/2025 3:07 PM EDT 04/30/2025 3:14 PM EDT us Steve Goodwin MD LAB BLOOD ORDERABLES Final Resul t Performing Organization Address [facility]/ZIP Co de Phone Number [facility] [address] [place] [address], [place] [phone] * (ABNORMAL) Blood culture pathogens molecular study 2 (04/30/2025 3:07 PM EDT) [facility] Escherichia coli Detected (A) Not Detected LAB MICROBIOLOGY METHOD 05/01/2025 6:42 AM EDT [facility] Blood Venous blood specimen / Unknown Venipuncture / Unknown 04/30/2025 3:07 PM EDT 04/30/2025 3:14 PM EDT us Steve Goodwin MD LAB MICROBIOLOGY - GENERAL ORDER DEMETRIUS Final Result Performing Organization Address City/[facility]/ZIP Co de Phone Number [facility] [address] [place] [address], [place] [phone] * Troponin I High Sensitivity (04/30/2025 3:07 PM EDT) [facility] High Sensitivity Troponin I 13 <=79 ng/L LAB CHEMISTRY METHOD 04/30/2025 4:10 PM EDT [facility] Blood Venous blood specimen / Unknown Venipuncture / Unknown 04/30/2025 3:07 PM EDT 04/30/2025 3:14 PM EDT Narrative [facility] - 04/30/2025 4:10 PM EDT High levels of biotin in samples may falsely decrease hsTroponin values. Use caution when interpreting hsTroponin results in patients taking biotin who exhibit renal impairment (eGFR <60) or in patients taking more than 20 mg/day of biotin. us Steve Goodwin MD LAB BLOOD ORDERABLES Final Resul t Performing Organization Address [facility]/ZIP Co de Phone Number [facility] [address] [place] [address], [place] [phone] * (ABNORMAL) B-Type Natriuretic Peptide (BNP) (04/30/2025 3:07 PM EDT) [facility] BNP 174(H) <=100 pcg/mL LAB CHEMISTRY METHOD 04/30/2025 4:00 PM EDT [facility] Blood Venous blood specimen / Unknown Venipuncture / Unknown 04/30/2025 3:07 PM EDT 04/30/2025 3:14 PM EDT us Steve Goodwin MD LAB BLOOD ORDERABLES Final Resul t Performing Organization Address [facility] Co de Phone Number [facility] [address] [place] [address], [place] [phone] * ECG 12 lead (04/30/2025 3:00 PM EDT) [facility] Ventricular Rate ECG 83 BPM GEMUSE Atrial Rate 83 BPM GEMUSE P-R Interval 202 ms GEMUSE QRS Duration 144 ms GEMUSE Q-T Interval 444 ms GEMUSE QTc 521 ms GEMUSE P Wave [place] 41 degrees GEMUSE R [place] -61 degrees GEMUSE T [place] 18 degrees GEMUSE ECG Interpretation Normal sinus rhythm Right bundle branch block Left anterior fascicular block Bifascicular block Abnormal ECG When compared with ECG of 21-SEP-2024 11:09, Premature ventricular complexes are no longer Present AK interval has decreased Confirmed by Rosi WOLFF JAMES ([id number]) on 04/30/2025 4:25:26 PM GEMUSE 04/30/2025 3:00 PM EDT 04/30/2025 4:25 PM EDT us Steve Goodwin MD ECG ORDERABLES Final Result GEMUSE * [id number], RSV, Influenza A and B qualitative RT-PCR (04/30/2025 2:56 PM EDT) [facility] Influenza A PCR Not Detected Not Detected LAB MICROBIOLOGY METHOD 04/30/2025 4:03 PM EDT [facility] Influenza B PCR Not Detected Not Detected LAB MICROBIOLOGY METHOD 04/30/2025 4:03 PM EDT [facility] RSV PCR Not Detected Not Detected LAB MICROBIOLOGY METHOD 04/30/2025 4:03 PM EDT [facility] SARS COV-2 Not Detected Not Detected LAB MICROBIOLOGY METHOD 04/30/2025 4:03 PM EDT [facility] Swab Nasopharyngeal structure / Unknown Non-blood Collection / Unknown 04/30/2025 2:56 PM EDT 04/30/2025 3:17 PM EDT Steve Goodwin MD LAB MICROBIOLOGY - GENERAL ORDER DEMETRIUS Final Result Performing Organization Address City/[facility]/ZIP Co de Phone Number [facility] [address] [place] [address], [place] [phone] * (ABNORMAL) Urinalysis with reflex microscopic (04/30/2025 2:53 PM EDT) [facility] Specific [place] Urine 1.010 1.003 - 1.030 LAB URINALYSIS - AUTOMATED METHOD 04/30/2025 3:50 PM EDT [facility] pH, Urine 6.5 5.0 - 8.0 pH LAB URINALYSIS - AUTOMATED METHOD 04/30/2025 3:50 PM EDT [facility] Leukocytes, Urine Large(A) Negative LAB URINALYSIS - AUTOMATED METHOD 04/30/2025 3:50 PM EDT [facility] Nitrite, Urine Positive(A) Negative LAB URINALYSIS - AUTOMATED METHOD 04/30/2025 3:50 PM EDT [facility] Protein, Urine 100(A) <=Trace mg/dL LAB URINALYSIS - AUTOMATED METHOD 04/30/2025 3:50 PM [facility] Glucose, Urine Negative Negative mg/dL LAB URINALYSIS - AUTOMATED METHOD 04/30/2025 3:50 PM [facility] Ketones, Urine Trace(A) Negative mg/dL LAB URINALYSIS - AUTOMATED METHOD 04/30/2025 3:50 PM [facility] Urobilinogen , Urine 2.0(A) 0.2 - 1.0 mg/dL LAB URINALYSIS - AUTOMATED METHOD 04/30/2025 3:50 PM [facility] Bilirubin, Urine Moderate(A) Negative LAB URINALYSIS - AUTOMATED METHOD 04/30/2025 3:50 PM [facility] Blood, Urine Large(A) Negative LAB URINALYSIS - AUTOMATED METHOD 04/30/2025 3:50 PM [facility] RBC, Urine 3,789.5(H) 0 - 4 /HPF LAB URINALYSIS - AUTOMATED METHOD 04/30/2025 3:50 PM [facility] WBC, Urine 2,246.0(H) 0 - 4 /HPF LAB URINALYSIS - AUTOMATED METHOD 04/30/2025 3:50 PM [facility] Squamous Epithelial, Urine 19 0 - 60 /LPF LAB URINALYSIS - AUTOMATED METHOD 04/30/2025 3:50 PM [facility] Bacteria, Urine Moderate(A) Negative /HPF LAB URINALYSIS - AUTOMATED METHOD 04/30/2025 3:50 PM [facility] Hyaline Casts, Urine 10.0(H) 0 - 3 /LPF LAB URINALYSIS - AUTOMATED METHOD 04/30/2025 3:50 PM [facility] Urine Urine specimen obtained by clean catch procedure / Unknown Non-blood Collection / Unknown 04/30/2025 2:53 PM EDT 04/30/2025 3:16 PM EDT Michelle SAINI LAB URINE ORDERABLES Donny al Result [facility] [address] [place] [address], [place] [phone] * Vascular US Duplex Lower Extremity Venous [...] Signed Date: 04/30/2025 14:52 ET Workstation ID: [id number] Transcribed By: Self Edit Transcribed Date: 04/30/2025 [...] Signed Date: 04/30/2025 14:52 ET Workstation ID: [id number] Transcribed By: Self Edit Transcribed Date: 04/30/2025 14:52 ET Steve Goodwin MD CV VASCULAR PROCEDURES Final Res ult * Lipase (04/30/2025 1:50 PM EDT) [facility] Lipase 36 13 - 75 unit/L LAB CHEMISTRY METHOD 04/30/2025 2:39 PM EDT [facility] Blood Venous blood specimen / Unknown Venipuncture / Unknown 04/30/2025 1:50 PM EDT 04/30/2025 2:03 PM EDT Michelle SAINI LAB BLOOD ORDERABLES Fin al Result Performing Organization Address City/[facility]/ZIP Co de Phone Number [facility] [address] [place] [address], [place] [phone] * Creatine kinase (04/30/2025 1:50 PM EDT) [facility] Total CK 69 22 - 269 unit/L LAB CHEMISTRY METHOD 04/30/2025 2:42 PM EDT [facility] Blood Venous blood specimen / Unknown Venipuncture / Unknown 04/30/2025 1:50 PM EDT 04/30/2025 2:03 PM EDT Steve Goodwin MD LAB BLOOD ORDERABLES Final Resul t Performing Organization Address City/[facility]/ZIP Co de Phone Number [facility] [address] [place] [address], [place] [phone] * (ABNORMAL) Comprehensive metabolic panel (04/30/2025 1:50 PM EDT) Sodium 135 133 - 145 mmol/L LAB CHEMISTRY METHOD 04/30/2025 2:43 PM [facility] Potassium 3.5 3.5 - 5.5 mmol/L LAB CHEMISTRY METHOD 04/30/2025 2:43 PM [facility] Chloride 102 96 - 110 mmol/L LAB CHEMISTRY METHOD 04/30/2025 2:43 PM [facility] CO2 25 21 - 32 mmol/L LAB CHEMISTRY METHOD 04/30/2025 2:43 PM [facility] Anion Gap 8 3 - 11 LAB CHEMISTRY METHOD 04/30/2025 2:43 PM [facility] Glucose 117(H) 70 - 100 mg/dL LAB CHEMISTRY METHOD 04/30/2025 2:43 PM [facility] BUN 15 5 - 25 mg/dL LAB CHEMISTRY METHOD 04/30/2025 2:43 PM [facility] Creatinine 1.05 0.70 - 1.30 mg/dL LAB CHEMISTRY METHOD 04/30/2025 2:43 PM [facility] eGFR 74 >=60 mL/min/1. 73m2 LAB CHEMISTRY METHOD 04/30/2025 2:43 PM [facility] Comment:Calculation based on the Chronic Kidney Disease Epidemiology Collaboration (CKD-EPI) equation refit without adjustment for race. BUN/Creatinine Ratio 14.3 LAB CHEMISTRY METHOD 04/30/2025 2:43 PM [facility] Calcium 8.8 8.5 - 10.5 mg/dL LAB CHEMISTRY METHOD 04/30/2025 2:43 PM [facility] AST (SGOT) 47(H) 10 - 42 unit/L LAB CHEMISTRY METHOD 04/30/2025 2:43 PM [facility] ALT (SGPT) 49 10 - 60 unit/L LAB CHEMISTRY METHOD 04/30/2025 2:43 PM EDT [facility] Alkaline Phosphatase 86 42 - 121 unit/L LAB CHEMISTRY METHOD 04/30/2025 2:43 PM EDT [facility] Total Protein 6.4 6.0 - 8.0 g/dL LAB CHEMISTRY METHOD 04/30/2025 2:43 PM EDT [facility] Albumin 2.8(L) 3.2 - 5.0 g/dL LAB CHEMISTRY METHOD 04/30/2025 2:43 PM EDT [facility] Total Bilirubin 0.9 0.0 - 1.4 mg/dL LAB CHEMISTRY METHOD 04/30/2025 2:43 PM EDT [facility] Blood Venous blood specimen / Unknown Venipuncture / Unknown 04/30/2025 1:50 PM EDT 04/30/2025 2:03 PM EDT us Michelle SAINI LAB BLOOD ORDERABLES Fin al Result [facility] [address] [place] [address], * (ABNORMAL) Lipid panel with reflex to direct LDL (11/10/2024 3:56 PM EDT) Cholesterol 127 0 - 200 mg/dL LAB CHEMISTRY METHOD 11/10/2024 7:20 PM T [facility] Triglycerides 93 0 - 150 mg/dL LAB CHEMISTRY METHOD 11/10/2024 7:20 PM T [facility] HDL 36(L) >=40 mg/dL LAB CHEMISTRY METHOD 11/10/2024 7:20 PM T [facility] LDL Calculated 72 0 - 100 mg/dL LAB CHEMISTRY METHOD 11/10/2024 7:20 PM [facility] VLDL Cholesterol Marquez 18.6 mg/dL LAB CHEMISTRY METHOD 11/10/2024 7:20 PM EDT [facility] Non HDL Chol. (LDL+VLDL) 91 <145 mg/dL LAB CHEMISTRY METHOD 11/10/2024 7:20 PM EDT [facility] Chol/HDL Ratio 3.5 0.0 - 4.4 LAB CHEMISTRY METHOD 11/10/2024 7:20 PM EDT [facility] Blood Venous blood specimen / Unknown Venipuncture / Unknown 11/10/2024 3:56 PM EDT 11/10/2024 3:56 PM EDT Parrish Ashton NP LAB BLOOD ORDERABLES Final Res ult [facility] [address] [place] [address], * Colonoscopy (2023) Colonoscopy no interpretation , abstracted Anatomical Region Laterality Modality Other Historical Provider HEALTH MAINTENANCE Final Result * Hepatitis C Screening (07/23/2010) Pathologist On license of [facility] Hepatitis C Screening abstracted Historical Provider HEALTH MAINTENANCE Final Result from Last 3 Months or Most Recently Relevant to Health Maintenance Insurance [facility]ICARE 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
--- OUTSIDE RECORDS SUMMARY | 2025-06-27 10:22 | XMS_ITS | Encounter Summary ---
Author Organization [facility] Address [address] [place] [address] Care Team Providers Care Retort Pre Cooker Name Role Phone Birdie Dwyer MD Primary Care Provider [phone] Encounter Details Date Type Department Care Team (Late st Contact Info) Description 03/12/2025 Lab Requisition [facility] - Main Lab [address] [facility] [place] [address] Rajinder Vidal MD [address] [place] [address] 204 [facility] [phone] Weakness Social History Tobacco Use [...] care for your loved ones. For example, manager child or elderly care for an older adult? [...] PM EST Office Visit Internal Medicine - [address] [phone] Uzma Masters, FELIX [address] [place] [phone] 07/25/2025 2:00 PM EST Office Visit Internal Medicine - [address] [place] [phone] Parrish Ashton NP [address] [place], [place] 10/10/2025 2:00 PM EDT Office Visit Internal Medicine - [address] [phone] Birdie Dwyer MD [address] [place], [place] documented as of this encounter Procedures Procedure Name Priority Date/Time Associated Diagnosis Comments COMPLETE BLOOD COUNT Routine 03/13/2025 6:28 AM EDT Weakness BASIC METABOLIC PANEL Routine 03/13/2025 6:28 AM EDT Weakness documented in this encounter Results * Basic metabolic panel (03/13/2025 6:28 AM EDT) Sodium 140 133 - 145 mmol/L LAB CHEMISTRY METHOD 03/13/2025 10:15 AM [facility] Potassium 4.2 3.5 - 5.5 mmol/L LAB CHEMISTRY METHOD 03/13/2025 10:15 AM [facility] Chloride 108 96 - 110 mmol/L LAB CHEMISTRY METHOD 03/13/2025 10:15 AM [facility] CO2 27 21 - 32 mmol/L LAB CHEMISTRY METHOD 03/13/2025 10:15 AM [facility] Anion Gap 5 3 - 11 LAB CHEMISTRY METHOD 03/13/2025 10:15 AM [facility] Glucose 73 70 - 100 mg/dL LAB CHEMISTRY METHOD 03/13/2025 10:15 AM [facility] BUN 11 5 - 25 mg/dL LAB CHEMISTRY METHOD 03/13/2025 10:15 AM [facility] Creatinine 0.72 0.70 - 1.30 mg/dL LAB CHEMISTRY METHOD 03/13/2025 10:15 AM EDT [facility] eGFR 96 >=60 mL/min/1. 73m2 LAB CHEMISTRY METHOD 03/13/2025 10:15 AM EDT [facility] Comment:Calculation based on the Chronic Kidney Disease Epidemiology Collaboration (CKD-EPI) equation refit without adjustment for race. BUN/Creatinine Ratio 15.3 LAB CHEMISTRY METHOD 03/13/2025 10:15 AM EDT [facility] Calcium 8.5 8.5 - 10.5 mg/dL LAB CHEMISTRY METHOD 03/13/2025 10:15 AM T [facility] Blood Venous blood specimen / Unknown Venipuncture / Unknown 03/13/2025 6:28 AM EDT 03/13/2025 8:35 AM EDT us Rajinder Vidal MD LAB BLOOD ORDERABLES Final Resul t [facility] [address] [place] [address], * (ABNORMAL) Complete blood count (03/13/2025 6:28 AM EDT) WBC 7.0 4.8 - 10.8 K/mcL LAB HEMETOLOGY METHOD [facility] 3.50(L) 4.50 - 5.50 M/mcL LAB HEMETOLOGY METHOD [facility]/13[facility] Hemoglobin 10.2(L) 13.5 - 17.5 g/dL LAB HEMETOLOGY METHOD 03/13/2025 9:42 AM [facility] Hematocrit 31.7(L) 42.0 - 54.0 % LAB HEMETOLOGY METHOD 03/13/2025 9:42 AM EDT [facility] MCV 90.6 79.0 - 98.0 FL LAB HEMETOLOGY METHOD 03/13/2025 9:42 AM EDT [facility] MCH 29.1 27.0 - 32.0 pcg LAB HEMETOLOGY METHOD 03/13/2025 9:42 AM EDT [facility] MCHC 32.2 32.0 - 37.0 g/dL LAB HEMETOLOGY METHOD 03/13/2025 9:42 AM EDT [facility] RDW 15.8(H) 11.0 - 15.0 % LAB HEMETOLOGY METHOD 03/13/2025 9:42 AM EDT [facility] Platelets 212 130 - 400 K/mcL LAB HEMETOLOGY METHOD 03/13/2025 9:42 AM EDT [facility] MPV 11.3(H) 7.0 - 11.0 FL LAB HEMETOLOGY METHOD 03/13/2025 9:42 AM EDT [facility] NRBC 0.0 <1.0 % LAB HEMETOLOGY METHOD 03/13/2025 9:42 AM EDT [facility] NRBC Absolute 0.00 <0.10 K/mcL LAB HEMETOLOGY METHOD 03/13/2025 9:42 AM EDT [facility] Blood Venous blood specimen / Unknown Venipuncture / Unknown 03/13/2025 6:28 AM EDT 03/13/2025 8:35 AM EDT us Rajinder Vidal MD LAB BLOOD ORDERABLES Final Resul t [facility] [address] [place] [address], documented in this encounter Visit Diagnoses Diagnosis Weakness Other malaise and fatigue documented in this encounter Additional Health Concerns Infection Onset Date Last Indicated Resolved Time Respiratory Rule-Out 04/30/2025 04/30/2025 025 4:03 PM EDT COVID-19 Rule-Out 04/30/2025 04/30/2025 04/30/2025 4:03 PM EDT Assessment Noted Time PHQ-9 Depression Total Score: 0 11/11/19 3:32 PM EDT documented as of this encounter Care Teams Retort Pre Cooker Relationship Specialty Start Date End Date Birdie Dwyer MD [address] [place] [address] PCP - General Internal Medicine 01/29/25 documented as of this encounter
--- OUTSIDE RECORDS SUMMARY | 2025-06-27 10:22 | XMS_ITS | Encounter Summary ---
Author Organization [facility] Address [address] [place] [address] Care Team Providers Care Well Driller Helper Name Role Phone Birdie Dwyer MD Primary Care Provider Encounter Details Date Type Department Care Team (Late st Contact Info) Description 03/19/2025 Lab Requisition [facility] - Main Lab [address] [facility] [place] [address] Rajinder Vidal MD [address] [place] [address] 204 [facility] [phone] Weakness Social History Tobacco [...] PM EST Office Visit Internal Medicine - [address] [phone] Uzma Masters, FELIX [address] [place] [phone] 07/25/2025 2:00 PM EST Office Visit Internal Medicine - [address] [place] [phone] Parrish Ashton NP [address] [place], [place] 10/10/2025 2:00 PM EDT Office Visit Internal Medicine - [facility] [address] [place], [place] [phone] Birdie Dwyer MD [address] [place], [place] documented as of this encounter Procedures Procedure Name Priority Date/Time Associated Diagnosis Comments COMPLETE BLOOD COUNT Routine 03/20/2025 8:10 AM EDT Weakness BASIC METABOLIC PANEL Routine 03/20/2025 8:10 AM EDT Weakness documented in this encounter Results * (ABNORMAL) Basic metabolic panel (03/20/2025 8:10 AM EDT) Sodium 142 133 - 145 mmol/L LAB CHEMISTRY METHOD 03/20/2025 12:05 PM [facility] Potassium 3.8 3.5 - 5.5 mmol/L LAB CHEMISTRY METHOD 03/20/2025 12:05 PM [facility] Chloride 109 96 - 110 mmol/L LAB CHEMISTRY METHOD 03/20/2025 12:05 PM [facility] CO2 26 21 - 32 mmol/L LAB CHEMISTRY METHOD 03/20/2025 12:05 PM [facility] Anion Gap 7 3 - 11 LAB CHEMISTRY METHOD 03/20/2025 12:05 PM [facility] Glucose 81 70 - 100 mg/dL LAB CHEMISTRY METHOD 03/20/2025 12:05 PM [facility] BUN 9 5 - 25 mg/dL LAB CHEMISTRY METHOD 03/20/2025 12:05 PM [facility] Creatinine 0.72 0.70 - 1.30 mg/dL LAB CHEMISTRY METHOD 03/20/2025 12:05 PM EDT [facility] eGFR 96 >=60 mL/min/1. 73m2 LAB CHEMISTRY METHOD 03/20/2025 12:05 PM EDT [facility] Comment:Calculation based on the Chronic Kidney Disease Epidemiology Collaboration (CKD-EPI) equation refit without adjustment for race. BUN/Creatinine Ratio 12.5 LAB CHEMISTRY METHOD 03/20/2025 12:05 PM EDT [facility] Calcium 8.2(L) 8.5 - 10.5 mg/dL LAB CHEMISTRY METHOD 03/20/2025 12:05 PM EDT [facility] Blood Venous blood specimen / Unknown Venipuncture / Unknown 03/20/2025 8:10 AM EDT 03/20/2025 10:19 AM EDT us Rajinder Vidal MD LAB BLOOD ORDERABLES Final Resul t [facility] [address] [place] [address], * (ABNORMAL) Complete blood count (03/20/2025 8:10 AM EDT) WBC 6.4 4.8 - 10.8 K/mcL LAB HEMETOLOGY METHOD 03/20/2025 11:39 AM EDT [facility] RBC 3.40(L) 4.50 - 5.50 M/mcL LAB HEMETOLOGY METHOD 03/20/2025 11:39 AM EDT [facility] Hemoglobin 10.0(L) 13.5 - 17.5 g/dL LAB HEMETOLOGY METHOD 03/20/2025 11:39 AM [facility] Hematocrit 31.1(L) 42.0 - 54.0 % LAB HEMETOLOGY METHOD 03/20/2025 11:39 AM EDT [facility] MCV 90.4 79.0 - 98.0 FL LAB HEMETOLOGY METHOD 03/20/2025 11:39 AM EDT [facility] MCH 29.1 27.0 - 32.0 pcg LAB HEMETOLOGY METHOD 03/20/2025 11:39 AM EDT [facility] MCHC 32.2 32.0 - 37.0 g/dL LAB HEMETOLOGY METHOD 03/20/2025 11:39 AM EDT [facility] RDW 16.5(H) 11.0 - 15.0 % LAB HEMETOLOGY METHOD 03/20/2025 11:39 AM EDT [facility] Platelets 153 130 - 400 K/mcL LAB HEMETOLOGY METHOD 03/20/2025 11:39 AM T [facility] MPV 11.8(H) 7.0 - 11.0 FL LAB HEMETOLOGY METHOD 03/20/2025 11:39 AM EDT [facility] NRBC 0.0 <1.0 % LAB HEMETOLOGY METHOD 03/20/2025 11:39 AM EDT [facility] NRBC Absolute 0.00 <0.10 K/mcL LAB HEMETOLOGY METHOD 03/20/2025 11:39 AM [facility] Blood Venous blood specimen / Unknown Venipuncture / Unknown 03/20/2025 8:10 AM EDT 03/20/2025 10:19 AM EDT us Rajinder Vidal MD LAB BLOOD ORDERABLES Final Resul t [facility] [address] [place] [address], documented in this encounter Visit Diagnoses Diagnosis Weakness Other malaise and fatigue documented in this encounter Additional Health Concerns Infection Onset Date Last Indicated Resolved Time Respiratory Rule-Out 04/30/2025 04/30/202527/2 025 4:03 PM EDT COVID-19 Rule-Out 04/30/2025 04/30/2025 04/30/2025 4:03 PM EDT Assessment Noted Time PHQ-9 Depression Total Score: 0 11/11/19 3:32 PM EDT documented as of this encounter Care Teams Well Driller Helper Relationship Specialty Start Date End Date Birdie Dwyer MD [address] [place] [phone] PCP - General Internal Medicine 01/29/25 documented as of this encounter
--- OUTSIDE RECORDS SUMMARY | 2025-06-27 10:22 | XMS_ITS | Clinical Summary ---
Author Organization [facility] Address [address] [place] [address] Care Team Providers Care Home Extension Agent Name Role Phone [facility]: Primary Care Provider Allergies [...] MEDICARE PART A & B Care Teams Home Extension Agent Relationship Specialty Start Date End Date [facility]: [address] [facility] [place] [address] PCP - General 09/08/21
--- OUTSIDE RECORDS SUMMARY | 2025-06-27 10:22 | XMS_ITS | Clinical Summary ---
Author Organization [facility] Prior to 12/02/24 Address [address] [place] [address] Care Team Providers Care Core Drill Operator Name Role Phone Juve Queen MD Primary Care Provider [phone] Allergies No known active allergies Medications Medication [...] age to complete this topic Care Teams Core Drill Operator Relationship Specialty Start Date End Date Juve Queen MD [address] [place] [id number] PCP - General Internal Medicine 05/30/19
--- OUTSIDE RECORDS SUMMARY | 2025-06-27 10:22 | XMS_ITS | Encounter Summary ---
Author Organization [facility] Address [address] [place] [address] Care Team Providers Care Sales Planning Coordinator Name Role Phone Birdie Dwyer MD Primary Care Provider Encounter Details Date Type Department Care Team (Late st Contact Info) Description 02/27/2025 Lab Requisition [facility] - Main Lab 299 [facility] [place] [address] Rajinder Vidal MD [address] [place] [address] 204 [facility] [phone] Weakness Social History Tobacco Use [...] your loved ones. For example, child and youth program assistant or elderly care for an older [...] PM EST Office Visit Internal Medicine - [address] [phone] Uzma Masters, FELIX [address] [place] [phone] 07/25/2025 2:00 PM EST Office Visit Internal Medicine - [address] [place] [phone] Parrish Ashton NP [address] [place], [place] 10/10/2025 2:00 PM EDT Office Visit Internal Medicine - [facility] [address] [place], [place] [phone] Birdie Dwyer MD [address] [place], [place] documented as of this encounter Procedures Procedure Name Priority Date/Time Associated Diagnosis Comments COMPLETE BLOOD COUNT Routine 02/27/2025 6:16 AM EDT Weakness BASIC METABOLIC PANEL Routine 02/27/2025 6:16 AM EDT Weakness documented in this encounter Results * (ABNORMAL) Basic metabolic panel (02/27/2025 6:16 AM EDT) Sodium 137 133 - 145 mmol/L LAB CHEMISTRY METHOD 02/27/2025 9:05 AM [facility] Potassium 4.2 3.5 - 5.5 mmol/L LAB CHEMISTRY METHOD 02/27/2025 9:05 AM [facility] Chloride 104 96 - 110 mmol/L LAB CHEMISTRY METHOD 02/27/2025 9:05 AM [facility] CO2 28 21 - 32 mmol/L LAB CHEMISTRY METHOD 02/27/2025 9:05 AM [facility] Anion Gap 5 3 - 11 LAB CHEMISTRY METHOD 02/27/2025 9:05 AM [facility] Glucose 92 70 - 100 mg/dL LAB CHEMISTRY METHOD 02/27/2025 9:05 AM [facility] BUN 11 5 - 25 mg/dL LAB CHEMISTRY METHOD 02/27/2025 9:05 AM [facility] Creatinine 0.62(L) 0.70 - 1.30 mg/dL LAB CHEMISTRY METHOD 02/27/2025 9:05 AM EDT [facility] eGFR 100 >=60 mL/min/1. 73m2 LAB CHEMISTRY METHOD 02/27/2025 9:05 AM EDT [facility] Comment:Calculation based on the Chronic Kidney Disease Epidemiology Collaboration (CKD-EPI) equation refit without adjustment for race. BUN/Creatinine Ratio 17.7 LAB CHEMISTRY METHOD 02/27/2025 9:05 AM EDT [facility] Calcium 8.1(L) 8.5 - 10.5 mg/dL LAB CHEMISTRY METHOD 02/27/2025 9:05 AM [facility] Blood Venous blood specimen / Unknown Venipuncture / Unknown 02/27/2025 6:16 AM EDT 02/27/2025 7:45 AM EDT us Rajinder Vidal MD LAB BLOOD ORDERABLES Final Resul t [facility] [address] [place] [address], * (ABNORMAL) Complete blood count (02/27/2025 6:16 AM EDT) WBC 8.2 4.8 - 10.8 K/mcL LAB HEMETOLOGY METHOD 02/27/2025 8:54 AM EDT [facility] RBC 3.30(L) 4.50 - 5.50 M/mcL LAB HEMETOLOGY METHOD 02/27/2025 8:54 AM EDT [facility] Hemoglobin 9.3(L) 13.5 - 17.5 g/dL LAB HEMETOLOGY METHOD 02/27/2025 8:54 AM T [facility] Hematocrit 29.0(L) 42.0 - 54.0 % LAB HEMETOLOGY METHOD 02/27/2025 8:54 AM EDT [facility] MCV 88.7 79.0 - 98.0 FL LAB HEMETOLOGY METHOD 02/27/2025 8:54 AM EDT [facility] MCH 28.4 27.0 - 32.0 pcg LAB HEMETOLOGY METHOD 02/27/2025 8:54 AM EDT [facility] MCHC 32.1 32.0 - 37.0 g/dL LAB HEMETOLOGY METHOD 02/27/2025 8:54 AM EDT [facility] RDW 14.9 11.0 - 15.0 % LAB HEMETOLOGY METHOD 02/27/2025 8:54 AM EDT [facility] Platelets 225 130 - 400 K/mcL LAB HEMETOLOGY METHOD 02/27/2025 8:54 AM EDT [facility] MPV 10.9 7.0 - 11.0 FL LAB HEMETOLOGY METHOD 02/27/2025 8:54 AM EDT [facility] NRBC 0.0 <1.0 % LAB HEMETOLOGY METHOD 02/27/2025 8:54 AM EDT [facility] NRBC Absolute 0.00 <0.10 K/mcL LAB HEMETOLOGY METHOD 02/27/2025 8:54 AM T [facility] Blood Venous blood specimen / Unknown Venipuncture / Unknown 02/27/2025 6:16 AM EDT 02/27/2025 7:45 AM EDT us Rajinder Vidal MD LAB BLOOD ORDERABLES Final Resul t [facility] [address] [place] [address], documented in this encounter Visit Diagnoses Diagnosis Weakness Other malaise and fatigue documented in this encounter Additional Health Concerns Infection Onset Date Last Indicated Resolved Time Respiratory Rule-Out 04/30/2025 04/30/2025 025 4:03 PM EDT COVID-19 Rule-Out 04/30/2025 04/30/2025 04/30/2025 4:03 PM EDT Assessment Noted Time PHQ-9 Depression Total Score: 0 11/11/19 3:32 PM EDT documented as of this encounter Care Teams Sales Planning Coordinator Relationship Specialty Start Date End Date Birdie Dwyer MD [address] [facility] [place] [phone] PCP - General Internal Medicine 01/29/25 documented as of this encounter
--- OUTSIDE RECORDS SUMMARY | 2025-07-26 19:00 | XMS_ITS | Clinical Summary ---
Author Organization Unknown Care Team Providers Care Electronic Component Processor Name Role Phone CONCEPCION POOLE, CHARLIE Unavailable Unavailable JESUS CAFETERIA COUNTER ATTENDANT, JOCYELYN Unavailable Unavailable XOCHILT PT, THEE Unavailable Unavailable LENGIEZA OT, BRAYAN Unavailable Unavailable SHABNAM CADET DECK, ERNESTINA Unavailable Unavailable CONDINO ERICA/CARVER, BRANDON Unavailable Unav navidable RN, GRZEGORZ Unavailable Unavailable Payers Payer Name Policy Type Policy Number Effective Date Expira tion Date MEDICARE.NGS.PDGM [id number] Problems Condition Name Condition Details Condition Category [...] 02-23 00:00: 00 ATHSCL HEART DISEASE OF [place] CORONARY ARTERY W/O ANG PCTRS Active 07-05 [...] 03-28 00:00: 00 05-25 23:59 :00 No [id number] HTN 1 tablet DAILY 1 tablet DAILY (route: oral) Med Classific ation: Cardiovas cular Therapy Agents acetaminoph en 500 mg tablet 03-30 00:00: 00 Yes [id number] PAIN 2 tablet 3 TIMES DAILY 2 tablet 3 TIMES DAILY (route: oral) Med Classific ation: Analgesic , Anti-infl ammatory or Antipyret ic albuterol sulfate HFA 90 mcg/actuati on aerosol inhaler 03-30 00:00: 00 Yes [id number] SOB 2 puff EVERY 4 HOURS 2 puff EVERY 4 HOURS (route: inhalation ) Med Classific ation: Respirato ry Therapy Agents aspirin 81 mg tablet 03-30 00:00: 00 Yes [id number] HEART HEALTH 1 tablet DAILY 1 tablet DAILY (route: oral) Med Classific ation: Hematolog ical Agents atorvastati n 80 mg tablet 03-30 00:00: 00 Yes [id number] CHOLESTEROL 1 tablet DAILY 1 tablet DAILY (route: oral) Med Classific ation: Cardiovas cular Therapy Agents finasteride 5 mg tablet 03-30 00:00: 00 Yes [id number] BPH 1 tablet DAILY 1 tablet DAILY (route: oral) Med Classific ation: Genitouri nary Therapy fluoxetine 40 mg capsule 03-30 00:00: 00 06-07 23:59 :00 No [id number] DEPRESSION 1 capsule DAILY 1 capsule DAILY (route: oral) Med Classific ation: Central Nervous System Agents loratadine 10 mg capsule 03-30 00:00: 00 Yes [id number] ALLERGIES 1 capsule DAILY 1 capsule DAILY (route: oral) Med Classific ation: Respirato ry Therapy Agents meclizine 25 mg tablet 03-30 00:00: 00 Yes [id number] VERTIGO 1 tablet DAILY 1 tablet DAILY (route: oral) Med Classific ation: Gastroint estinal Therapy Agents melatonin 3 mg tablet 03-30 00:00: 00 Yes [id number] SLEEP 1 tablet DAILY 1 tablet DAILY (route: oral) Med Classific ation: Central Nervous System Agents Multivitami n 50 Plus tablet 03-30 00:00: 00 Yes [id number] SUPPLEMENT 1 tablet DAILY 1 tablet DAILY (route: oral) Med Classific ation: Electroly te Balance-N utritiona l Products oxybutynin chloride ER 10 mg tablet,exte nded release 24 hr 03-30 00:00: 00 Yes [id number] OVERACTIVE BLADDER 1 tablet DAILY 1 tablet DAILY (route: oral) Med Classific ation: Genitouri nary Therapy primidone 50 mg tablet 03-30 00:00: 00 Yes [id number] ESSENTIAL TREMOR 1 tablet 2 TIMES DAILY 1 tablet 2 TIMES DAILY (route: oral) Med Classific ation: Central Nervous System Agents Senna Laxative 8.6 mg tablet 03-30 00:00: 00 Yes [id number] LAXATIVE 2 tablet DAILY 2 tablet DAILY (route: oral) Med Classific ation: Gastroint estinal Therapy Agents valacyclovi r 1 gram tablet 03-30 00:00: 00 05-25 23:59 :00 No [id number] VIRUS 1 tablet 3 TIMES DAILY 1 tablet 3 TIMES DAILY (route: oral) Med Classific ation: Anti-Infe ctive Agents ezetimibe 10 mg tablet 2024-07 00:00: 00 Yes [id number] HYPERCHOLES TEROLEMIA 1 tablet DAILY 1 tablet DAILY (route: oral) Med Classific ation: Cardiovas cular Therapy Agents folic acid 1 mg tablet 2024-07 0 00:00: 00 Yes [id number] SUPPLEMENT 1 tablet DAILY 1 tablet DAILY (route: oral) Med Classific ation: Electroly te Balance-N utritiona l Products gabapentin 600 mg tablet 2024-07 0 00:00: 00 Yes [id number] NERVE PAIN 2 tablet 2 TIMES DAILY 2 tablet 2 TIMES DAILY (route: oral) Med Classific ation: Central Nervous System Agents omeprazole 40 mg capsule,del ayed release 2024-07 0 00:00: 00 Yes [id number] GERD 1 capsule DAILY 1 capsule DAILY (route: oral) Med Classific ation: Gastroint estinal Therapy Agents Vitamin C 250 mg tablet 2024-07 00:00: 00 Yes [id number] SUPPLEMENT 1 tablet DAILY 1 tablet DAILY (route: oral) Med Classific ation: Electroly te Balance-N utritiona l Products Vitamin D3 50 mcg (2,000 unit) tablet 2024-07 00:00: 00 Yes [id number] SUPPLEMENT 1 tablet DAILY 1 tablet DAILY (route: oral) Med Classific ation: Electroly te Balance-N utritiona l Products oxycodone 5 mg tablet 2024-07 0 00:00: 00 Yes [id number] PAIN 1-2 tablet EVERY 4 HOURS 1-2 tablet EVERY 4 HOURS (route: oral) Med Classific ation: Analgesic , Anti-infl ammatory or Antipyret ic cefpodoxime 200 mg tablet 2024-07 00:00: 00 05-25 23:59 :00 No [id number] UTI 1 tablet 2 TIMES DAILY 1 tablet 2 TIMES DAILY (route: oral) Med Classific ation: Anti-Infe ctive Agents famotidine 20 mg tablet 2024-07 00:00: 00 Yes [id number] HEARTBURN 1 tablet DAILY 1 tablet DAILY (route: oral) Med Classific ation: Gastroint estinal Therapy Agents amlodipine 5 mg tablet 2024-07 00:00: 00 Yes [id number] HTN 1 tablet DAILY 1 tablet DAILY (route: oral) Med Classific ation: Cardiovas cular Therapy Agents Valtrex 1 gram tablet 2024-07 00:00: 00 Yes [id number] ANTIVIRAL 1 tablet DAILY 1 tablet DAILY (route: oral) Med Classific ation: Anti-Infe ctive Agents ferrous sulfate 325 mg (65 mg iron) tablet 2024-07 00:00: 00 Yes [id number] ANEMIA 1 tablet DAILY 1 tablet DAILY (route: oral) Med Classific ation: Electroly te Balance-N utritiona l Products fluoxetine 20 mg capsule 2024-07 00:00: 00 Yes [id number] DEPRESSION 3 capsule DAILY 3 capsule DAILY (route: oral) Med Classific ation: Central Nervous System Agents Gemtesa 75 mg tablet 2024-07 00:00: 00 Yes [id number] OVERACTIVE BLADDER 1 tablet DAILY 1 tablet DAILY (route: oral) Med Classific ation: Genitouri nary Therapy Vital Signs Vital Name Observation Time Observation Value Commen ts Temperature 2025-06-26 15:47:00.000 98.4 [degF] Temperature 2025-06-20 13:30:00.000 98.8 [degF] Temperature 2025-06-15 14:59:00.000 97.7 [degF] Temperature 2025-06-15 13:31:00.000 97.6 [degF] Temperature 2025-06-08 12:37:00.000 98.2 [degF] Temperature 2025-06-07 13:09:00.000 97.6 [degF] Temperature 2025-05-30 13:01:00.000 98.4 [degF] Temperature 2025-05-29 12:26:00.000 97.5 [degF] Pulse 2025-06-26 15:47:00.000 73 /min Pulse 2025-06-20 13:30:00.000 71 /min Pulse 2025-06-15 14:59:00.000 76 /min Pulse 2025-06-15 13:31:00.000 85 /min Pulse 2025-06-08 12:37:00.000 73 /min Pulse 2025-06-07 13:09:00.000 69 /min Pulse 2025-05-30 13:01:00.000 76 /min Pulse 2025-05-29 12:26:00.000 73 /min O2 Saturation (%) 2025-06-15 14:59:00.000 98 % O2 Saturation (%) 2025-06-15 13:31:00.000 97 % O2 Saturation (%) 2025-06-07 13:13:00.000 98 % O2 Saturation (%) 2025-05-30 13:01:00.000 96 % O2 Saturation (%) 2025-05-29 12:26:00.000 96 % Respirations 2025-06-26 15:47:00.000 18 /min Respirations 2025-06-20 13:30:00.000 18 /min Respirations 2025-06-15 14:59:00.000 18 /min Respirations 2025-06-15 13:31:00.000 18 /min Respirations 2025-06-08 12:37:00.000 18 /min Respirations 2025-06-07 13:09:00.000 18 /min Respirations 2025-05-30 13:01:00.000 18 /min Respirations 2025-05-29 12:26:00.000 18 /min Systolic Blood Pressure 2025-06-26 15:47:00.000 128 mm [Hg] Systolic Blood Pressure 2025-06-20 13:30:00.000 142 mm [Hg] Systolic Blood Pressure 2025-06-15 14:59:00.000 142 mm [Hg] Systolic Blood Pressure 2025-06-15 13:31:00.000 142 mm [Hg] Systolic Blood Pressure 2025-06-08 12:37:00.000 148 mm [Hg] Systolic Blood Pressure 2025-06-07 13:09:00.000 138 mm [Hg] Systolic Blood Pressure 2025-05-30 13:01:00.000 158 mm [Hg] Systolic Blood Pressure 2025-05-29 12:26:00.000 138 mm [Hg] Diastolic Blood Pressure 2025-06-26 15:47:00.000 68 mm [Hg] Diastolic Blood Pressure 2025-06-20 13:30:00.000 74 mm [Hg] Diastolic Blood Pressure 2025-06-15 14:59:00.000 80 mm [Hg] Diastolic Blood Pressure 2025-06-15 13:31:00.000 80 mm [Hg] Diastolic Blood Pressure 2025-06-08 12:37:00.000 [...] CONSULTING PHYSICIANS. RN TO OBSERVE AND ASSESS, CADET DECK/FIRE EXTINGUISHER SPRINKLER INSPECTOR TO OBSERVE FOR RISK FOR FALLS AND INSTRUCT IN FALL PREVENTION, HOME SAFETY, MEDICATION MANAGEMENT, INFECTION PREVENTION, AND NUTRITION MANAGEMENT. RN/CADET DECK/FIRE EXTINGUISHER SPRINKLER INSPECTOR NURSE MAY PERFORM O2 SATURATION LEVEL ON ADMISSION AND PRN FOR RN TO ASSESS/CADET DECK TO OBSERVE PATIENT, WITH NOTIFICATION TO THE PHYSICIAN IF SATURATION IS 90% IN THE ABSENCE OF MORE SPECIFIC PARAMETERS FROM THE PHYSICIAN. AGENCY MAY PERFORM A RESUMPTION OF CARE VISIT FOLLOWING ANY HOSPITAL ADMISSION. RN/CADET DECK/FIRE EXTINGUISHER SPRINKLER INSPECTOR TO MONITOR CO-MORBID CONDITIONS LISTED ON THE PLAN OF CARE AND ANY NEW CONDITIONS THAT PRESENT THEMSELVES DURING THIS EPISODE TO IDENTIFY CHANGES AND INTERVENE TO MINIMIZE COMPLICATIONS. [code = RN TO OBSERVE, ASSESS, EVALUATE, AND DEVELOP AN INDIVIDUALIZED PLAN OF CARE. AGENCY MAY ACCEPT ORDERS FROM CONSULTING PHYSICIANS. RN TO OBSERVE AND ASSESS, CADET DECK/FIRE EXTINGUISHER SPRINKLER INSPECTOR TO OBSERVE FOR RISK FOR FALLS AND INSTRUCT IN FALL PREVENTION, HOME SAFETY, MEDICATION MANAGEMENT, INFECTION PREVENTION, AND NUTRITION MANAGEMENT. RN/CADET DECK/FIRE EXTINGUISHER SPRINKLER INSPECTOR NURSE MAY PERFORM O2 SATURATION LEVEL ON ADMISSION AND PRN FOR RN TO ASSESS/CADET DECK TO OBSERVE PATIENT, WITH NOTIFICATION TO THE PHYSICIAN IF SATURATION IS 90% IN THE ABSENCE OF MORE SPECIFIC PARAMETERS FROM THE PHYSICIAN. AGENCY MAY PERFORM A RESUMPTION OF CARE VISIT FOLLOWING ANY HOSPITAL ADMISSION. RN/CADET DECK/FIRE EXTINGUISHER SPRINKLER INSPECTOR TO MONITOR CO-MORBID CONDITIONS LISTED ON THE PLAN OF CARE AND ANY NEW CONDITIONS THAT PRESENT THEMSELVES DURING THIS EPISODE TO IDENTIFY CHANGES AND INTERVENE TO MINIMIZE COMPLICATIONS.] Future Scheduled Test RISK FOR H OSPITALIZATION; RN TO ASSESS/TEACH, FIRE EXTINGUISHER SPRINKLER INSPECTOR/CADET DECK TO OBSERVE/TEACH PATIENT/CAREGIVER ON RISK FOR HOSPITALIZATION/EMERGENCY ROOM VISITS, TEACH SIGNS AND SYMPTOMS THAT PUT PATIENT AT RISK, WHEN TO NOTIFY NURSE/PHYSICIAN OF COMPLICATIONS/DECLINE, AND WHEN TO CALL 911. [code = RISK FOR HOSPITALIZATION; RN TO ASSESS/TEACH, FIRE EXTINGUISHER SPRINKLER INSPECTOR/CADET DECK TO OBSERVE/TEACH PATIENT/CAREGIVER ON RISK FOR HOSPITALIZATION/EMERGENCY ROOM VISITS, TEACH SIGNS AND SYMPTOMS THAT PUT PATIENT AT RISK, WHEN TO NOTIFY NURSE/PHYSICIAN OF COMPLICATIONS/DECLINE, AND WHEN TO CALL 911.] Future Scheduled Test MEDICATION MANAGEMENT; RN/CADET DECK/FIRE EXTINGUISHER SPRINKLER INSPECTOR TO REVIEW MEDICATIONS FOR INTERACTIONS, EFFECTIVENESS OF DRUG THERAPY, AND SIGNS/SYMPTOMS OF ADVERSE REACTIONS. MAY INSTRUCT AND REINFORCE MEDICATION TEACHING RELATED TO THE USE OF MEDICATIONS, DOSAGE, FREQUENCY, PURPOSE, SIDE EFFECTS, AND TO REPORT COMPLICATIONS. [code = MEDICATION MANAGEMENT; RN/CADET DECK/FIRE EXTINGUISHER SPRINKLER INSPECTOR TO REVIEW MEDICATIONS FOR INTERACTIONS, EFFECTIVENESS OF DRUG THERAPY, AND SIGNS/SYMPTOMS OF ADVERSE REACTIONS. MAY INSTRUCT AND REINFORCE MEDICATION TEACHING RELATED TO THE USE OF MEDICATIONS, DOSAGE, FREQUENCY, PURPOSE, SIDE EFFECTS, AND TO REPORT COMPLICATIONS.] Future Scheduled Test CARDIOVASC ULAR SYSTEM; RN TO ASSESS/TEACH, CADET DECK/FIRE EXTINGUISHER SPRINKLER INSPECTOR TO OBSERVE/TEACH RELATED TO ALTERED CARDIOVASCULAR STATUS TO MINIMIZE COMPLICATIONS AND REDUCE HOSPITALIZATION. [code = CARDIOVASCULAR SYSTEM; RN TO ASSESS/TEACH, CADET DECK/FIRE EXTINGUISHER SPRINKLER INSPECTOR TO OBSERVE/TEACH RELATED TO ALTERED CARDIOVASCULAR STATUS TO MINIMIZE COMPLICATIONS AND REDUCE HOSPITALIZATION.] Future Scheduled Test HYPERTENSI ON MANAGEMENT; RN TO ASSESS AND TEACH, CADET DECK/FIRE EXTINGUISHER SPRINKLER INSPECTOR TO OBSERVE AND TEACH WARNING SIGNS AND SYMPTOMS TO AVOID HOSPITALIZATION. [code = HYPERTENSION MANAGEMENT; RN TO ASSESS AND TEACH, CADET DECK/FIRE EXTINGUISHER SPRINKLER INSPECTOR TO OBSERVE AND TEACH WARNING SIGNS AND SYMPTOMS TO AVOID HOSPITALIZATION.] Future Scheduled Test SKIN INTEG RITY RN TO ASSESS AND TEACH, CADET DECK/FIRE EXTINGUISHER SPRINKLER INSPECTOR TO OBSERVE AND TEACH INTEGUMENTARY STATUS TO IDENTIFY CHANGES AND INTERVENE TO MINIMIZE COMPLICATIONS. PROVIDE SKILLED TEACHING OF GENERAL WOUND AND SKIN CARE AND PREVENTION RELATED TO POTENTIAL FOR OR ACTUAL ALTERED SKIN INTEGRITY. [code = SKIN INTEGRITY RN TO ASSESS AND TEACH, CADET DECK/FIRE EXTINGUISHER SPRINKLER INSPECTOR TO OBSERVE AND TEACH INTEGUMENTARY STATUS TO IDENTIFY CHANGES AND INTERVENE TO MINIMIZE COMPLICATIONS. PROVIDE SKILLED TEACHING OF GENERAL WOUND AND SKIN CARE AND PREVENTION RELATED TO POTENTIAL FOR OR ACTUAL ALTERED SKIN INTEGRITY.] Future Scheduled Test PAIN MANAG EMENT; RN TO ASSESS AND TEACH, FIRE EXTINGUISHER SPRINKLER INSPECTOR/CADET DECK TO OBSERVE AND TEACH AND PROVIDE EDUCATION ON PAIN MANAGEMENT TECHNIQUES. [code = PAIN MANAGEMENT; RN TO ASSESS AND TEACH, FIRE EXTINGUISHER SPRINKLER INSPECTOR/CADET DECK TO OBSERVE AND TEACH AND PROVIDE EDUCATION ON PAIN MANAGEMENT TECHNIQUES.] Future Scheduled Test GENITOURIN NILS MANAGEMENT; RN TO ASSESS AND TEACH, CADET DECK/FIRE EXTINGUISHER SPRINKLER INSPECTOR TO OBSERVE AND TEACH RELATED TO ALTERED GENITOURINARY STATUS TO MINIMIZE COMPLICATIONS AND REDUCE HOSPITALIZATION. [code = GENITOURINARY MANAGEMENT; RN TO ASSESS AND TEACH, CADET DECK/FIRE EXTINGUISHER SPRINKLER INSPECTOR TO OBSERVE AND TEACH RELATED TO ALTERED GENITOURINARY STATUS TO MINIMIZE COMPLICATIONS AND REDUCE HOSPITALIZATION.] Future Scheduled Test URINARY TR ACT INFECTION MANAGEMENT; RN/FIRE EXTINGUISHER SPRINKLER INSPECTOR/CADET DECK TO PROVIDE SKILLED TEACHING AND SELF- CARE MANAGEMENT RELATED TO UTI TO MINIMIZE COMPLICATIONS AND REDUCE THE RISK OF HOSPITALIZATION. [code = URINARY TRACT INFECTION MANAGEMENT; RN/FIRE EXTINGUISHER SPRINKLER INSPECTOR/CADET DECK TO PROVIDE SKILLED TEACHING AND SELF- CARE MANAGEMENT RELATED TO UTI TO MINIMIZE COMPLICATIONS AND REDUCE THE RISK OF HOSPITALIZATION.] Future Scheduled Test FALL REDUC TION MANAGEMENT; RN TO ASSESS AND OBSERVE, CADET DECK/FIRE EXTINGUISHER SPRINKLER INSPECTOR TO OBSERVE FALL RISK FACTORS AND EDUCATE PATIENT/CAREGIVER ON STRATEGIES TO MINIMIZE THE RISK OF FALLING. [code = FALL REDUCTION MANAGEMENT; RN TO ASSESS AND OBSERVE, CADET DECK/FIRE EXTINGUISHER SPRINKLER INSPECTOR TO OBSERVE FALL RISK FACTORS AND EDUCATE PATIENT/CAREGIVER ON STRATEGIES TO MINIMIZE THE RISK OF FALLING.] Future Scheduled Test AGENCY MAY PERFORM A RESUMPTION OF CARE VISIT FOLLOWING ANY HOSPITAL ADMISSION. PT TO EVALUATE, OBSERVE / ASSESS, AND MONITOR, CAFETERIA COUNTER ATTENDANT TO OBSERVE AND MONITOR, PROVIDE SKILLED THERAPEUTIC INTERVENTION, ACTIVITY, EDUCATION, AND TRAINING TO ADDRESS; PT/CAFETERIA COUNTER ATTENDANT TO PROVIDE GAIT TRAINING FOR IMPROVED MOBILITY AND /OR TO NORMALIZE GAIT PATTERN NEUROMUSCULAR RE-EDUCATION / BALANCE / POSTURAL CONTROL (PT) THERAPEUTIC EXERCISES AND ESTABLISHING A HOME EXERCISE PROGRAM (PT/CAFETERIA COUNTER ATTENDANT) PT/CAFETERIA COUNTER ATTENDANT TO PROVIDE STAIR TRAINING PT TO ASSESS / CAFETERIA COUNTER ATTENDANT TO MONITOR FOR AND REPORT EARLY SIGNS OF ANTICOAGULANT TOXICITY TO THE PHYSICIAN AND/OR THE RN CLINICAL TAXI DRIVER SUPERVISOR FOR PHYSICIAN NOTIFICATION AND TO PROVIDE PATIENT/CAREGIVER EDUCATION ON ANTICOAGULANT THERAPY PT / CAFETERIA COUNTER ATTENDANT TO MONITOR AND EDUCATE ON OXYGEN SATURATION DURING ADLS/IADLS, NOTIFY PHYSICIAN AND/OR THE RN CLINICAL TAXI DRIVER SUPERVISOR FOR PHYSICIAN NOTIFICATION AND IF O2 SATS BELOW PHYSICIAN ORDERED PARAMETERS AFTER 10 MIN OF REST PT / CAFETERIA COUNTER ATTENDANT MAY EDUCATE ON PAIN MANAGEMENT CLINICALLY INDICATED, INCLUDING NON-PHARMACOLOGICAL PAIN REDUCTION TECHNIQUES. [code = AGENCY MAY PERFORM A RESUMPTION OF CARE VISIT FOLLOWING ANY HOSPITAL ADMISSION. PT TO EVALUATE, OBSERVE / ASSESS, AND MONITOR, CAFETERIA COUNTER ATTENDANT TO OBSERVE AND MONITOR, PROVIDE SKILLED THERAPEUTIC INTERVENTION, ACTIVITY, EDUCATION, AND TRAINING TO ADDRESS; PT/CAFETERIA COUNTER ATTENDANT TO PROVIDE GAIT TRAINING FOR IMPROVED MOBILITY AND /OR TO NORMALIZE GAIT PATTERN NEUROMUSCULAR RE-EDUCATION / BALANCE / POSTURAL CONTROL (PT) THERAPEUTIC EXERCISES AND ESTABLISHING A HOME EXERCISE PROGRAM (PT/CAFETERIA COUNTER ATTENDANT) PT/CAFETERIA COUNTER ATTENDANT TO PROVIDE STAIR TRAINING PT TO ASSESS / CAFETERIA COUNTER ATTENDANT TO MONITOR FOR AND REPORT EARLY SIGNS OF ANTICOAGULANT TOXICITY TO THE PHYSICIAN AND/OR THE RN CLINICAL TAXI DRIVER SUPERVISOR FOR PHYSICIAN NOTIFICATION AND TO PROVIDE PATIENT/CAREGIVER EDUCATION ON ANTICOAGULANT THERAPY PT / CAFETERIA COUNTER ATTENDANT TO MONITOR AND EDUCATE ON OXYGEN SATURATION DURING ADLS/IADLS, NOTIFY PHYSICIAN AND/OR THE RN CLINICAL TAXI DRIVER SUPERVISOR FOR PHYSICIAN NOTIFICATION AND IF O2 SATS BELOW PHYSICIAN ORDERED PARAMETERS AFTER 10 MIN OF REST PT / CAFETERIA COUNTER ATTENDANT MAY EDUCATE ON PAIN MANAGEMENT CLINICALLY INDICATED, [...] End Date/Time Encounter Type Admission Type Attending [facility] Facility Care Department Encounter ID Discharge Date Discharge Status Discharge Condition Discharge Reason Percent Goals Met 2025-05-29 00:00:00 2025-07-27 00:00:00 Outpatient RECERTIFIC ATION GRZEGORZ [facility] [id number]
== END 2025-06-27 10:39 | disposition home or self-care (01) ==
LOC: HO.PMC 10:13
PROVIDERS: PCP Internal Medicine; Visit Provider Internal Medicine
DX: M25.511 Pain in right shoulder (principal); M25.512 Pain in left shoulder
CPT/HCPCS: 20611

== ENCOUNTER → 2025-06-27 10:12 | Outpatient (BNVA) | payer MEDICARE, OTHER, SELFPAY | PROVIDERS: PCP Internal Medicine; Visit Provider Internal Medicine | DX: M25.511 Pain in right shoulder (principal); M25.512 Pain in left shoulder; M54.59 Other low back pain; G89.29 Other chronic pain; F12.90 Cannabis use, unspecified, uncomplicated | CPT/HCPCS: 20611 ==